=== PATIENT | female | born 1935 | race Caucasian/White ===

== ENCOUNTER 2017-09-14 16:00 | Emergency (ER) | payer MEDICARE ==
[2017-09-14 16:12] VITALS: RESP 18
[2017-09-14] MEDS ORDERED: RX INFO: IV CONTRAST WAS GIVEN 1 EACH MISC MISCELLANE PRN (16:52)
[2017-09-14] MEDS ORDERED: MORPHINE SULFATE 4 MG/ML SYRINGE IV STA (16:52)
[2017-09-14] MEDS ORDERED: ONDANSETRON 4 MG/2 ML VIAL IVP STA (16:52)
[2017-09-14] MEDS ORDERED: SODIUM CHLORIDE 0.9% 1,000 ML IV STA (16:52)
--- NOTE | 2017-09-14 17:14 | ED ---
General Adult HPI - General Chief complaint: Back Pain/Injury Stated complaint: back pain/constipation Time Seen by Provider: 09/14/17 16:19 Source: patient, family, RN notes reviewed, old records reviewed Mode of arrival: wheelchair Limitations: no limitations - History of Present Illness Initial comments: This is an 81-year-old female ER for evaluation of back pain. Back pain flank pain right flank pain and back pain. Patient has no history of similar symptoms. The pain woke patient up from sleep last night. Patient has history of high blood pressure. No trauma. Patient denies nausea vomiting. No shortness of breath. No modifying factors for pain. Patient's diarrhea and recently put on medication to help with slowing down diarrhea. - Related Data Home Medications Medication Instructions Recorded Confirmed Losartan [Cozaar] 50 mg PO DAILY 12/14/13 09/14/17 Naproxen Sodium [Aleve] 1 tab PO Q6HR PRN 12/14/13 09/14/17 Oxybutynin Chloride [Ditropan XL] 5 mg PO DAILY 12/14/13 09/14/17 Aspirin 325 mg PO DAILY 12/22/13 09/14/17 Triamterene-Hctz 37.5-25Mg 1 tab PO DAILY 08/29/14 09/14/17 [Maxzide 37.5-25] L.acidoph,Paracasei, B.lactis 1 cap PO DAILY 09/14/17 09/14/17 [Probiotic] Levothyroxine Sodium [Synthroid] 50 mcg PO DAILY 09/14/17 09/14/17 OXcarbazepine [Trileptal] 300 mg PO TID 09/14/17 09/14/17 Ubidecarenone [Co Q-10] 100 mg PO DAILY 09/14/17 09/14/17 amLODIPine [Norvasc] 5 mg PO DAILY 09/14/17 09/14/17 hydrOXYzine HCL [Atarax] 25 mg PO HS 09/14/17 09/14/17 Allergies Allergy/AdvReac Type Severity Reaction Status Date / Time No Known Allergies Allergy Verified 09/14/17 16:51 Review of Systems ROS Statement: Those systems with pertinent positive or pertinent negative responses have been documented in the HPI. ROS Other: All systems not noted in ROS Statement are negative. Past Medical History Past Medical History: Hyperlipidemia, Hypertension Additional Past Medical History / Comment(s): Vericose veins, IBS, Arthritis, chronic back pain,PERSISTENT COUGH, MULTIPLE RECENT FALLS. History of Any Multi-Drug Resistant Organisms: None Reported Past Surgical History: Back Surgery, Bladder Surgery, Hysterectomy, Orthopedic Surgery, Tonsillectomy Additional Past Surgical History / Comment(s): TOMMY Hip replacement, colonoscopy , Brain aneurysm, Cataract Bilateral, PAIN CLINIC Past Anesthesia/Blood Transfusion Reactions: No Reported Reaction Past Psychological History: Anxiety, Depression Smoking Status: Former smoker Past Alcohol Use History: None Reported Past Drug Use History: None Reported General Exam Limitations: no limitations General appearance: alert, in no apparent distress Head exam: Present: atraumatic, normocephalic, normal inspection Eye exam: Present: normal appearance, PERRL, EOMI. Absent: scleral icterus, conjunctival injection, periorbital swelling ENT exam: Present: normal exam, mucous membranes moist Neck exam: Present: normal inspection. Absent: tenderness, meningismus, lymphadenopathy Respiratory exam: Present: normal lung sounds bilaterally. Absent: respiratory distress, wheezes, rales, rhonchi, stridor Cardiovascular Exam: Present: regular rate, normal rhythm, normal heart sounds. Absent: systolic murmur, diastolic murmur, rubs, gallop, clicks GI/Abdominal exam: Present: soft, normal bowel sounds. Absent: distended, tenderness, guarding, rebound, rigid Extremities exam: Present: normal inspection, full ROM, normal capillary refill. Absent: tenderness, pedal edema, joint swelling, calf tenderness Back exam: Present: normal inspection Neurological exam: Present: alert, oriented X3, CN II-XII intact Psychiatric exam: Present: normal affect, normal mood Skin exam: Present: warm, dry, intact, normal color. Absent: rash Course Vital Signs 09/14/17 09/14/17 09/14/17 16:06 17:49 19:36 Temperature 97.2 F L 98.2 F Pulse Rate 70 74 78 Respiratory 18 18 18 Rate Blood Pressure 128/68 137/71 124/80 O2 Sat by Pulse 96 96 98 Oximetry EKG Findings - EKG Comments: EKG Findings:: EKG shows sinus rhythm rate of 64, pO2 50, QRS 140, QTc 455 Medical Decision Making - Medical Decision Making [id number] female with nonspecific back pain. No cause found. CT is negative. Patient can be discharged home - Lab Data Result diagrams: 09/14/17 17:15 09/14/17 17:15 Lab Results 09/14/17 09/14/17 09/14/17 Range/Units 17:15 17:15 17:15 WBC 5.8 (3.8-10.6) k/uL RBC 3.87 (3.80-5.40) m/uL Hgb 11.6 (11.4-16.0) gm/dL Hct 35.1 (34.0-46.0) % MCV 90.9 (80.0-100.0) fL MCH 29.9 (25.0-35.0) pg MCHC 32.9 (31.0-37.0) g/dL RDW 13.9 (11.5-15.5) % Plt Count 259 (150-450) k/uL Neutrophils % 57 % Lymphocytes % 24 % Monocytes % 7 % Eosinophils % 9 % Basophils % 1 % Neutrophils # 3.3 (1.3-7.7) k/uL Lymphocytes # 1.4 (1.0-4.8) k/uL Monocytes # 0.4 (0-1.0) k/uL Eosinophils # 0.5 (0-0.7) k/uL Basophils # 0.1 (0-0.2) k/uL PT (9.0-12.0) sec INR (<1.2) APTT (22.0-30.0) sec Sodium 135 L (137-145) mmol/L Potassium 4.1 (3.5-5.1) mmol/L Chloride 97 L (98-107) mmol/L Carbon Dioxide 28 (22-30) mmol/L Anion Gap 10 mmol/L BUN 36 H (7-17) mg/dL Creatinine 1.16 H (0.52-1.04) mg/dL Est GFR (MDRD) Af Amer 54 (>60 ml/min/1.73 sqM) Est GFR (MDRD) Non-Af 45 (>60 ml/min/1.73 sqM) Glucose 92 (74-99) mg/dL Calcium 10.1 (8.4-10.2) mg/dL Magnesium 1.9 (1.6-2.3) mg/dL Total Bilirubin 0.2 (0.2-1.3) mg/dL AST 28 (14-36) U/L ALT 31 (9-52) U/L Alkaline Phosphatase 89 (38-126) U/L Total Creatine Kinase 37 (30-135) U/L CK-MB (CK-2) 0.4 (0.0-2.4) ng/mL CK-MB (CK-2) Rel Index 1.1 Troponin I <0.012 (0.000-0.034) ng/mL NT-Pro-B Natriuret Pep pg/mL Total Protein 6.1 L (6.3-8.2) g/dL Albumin 3.5 (3.5-5.0) g/dL Lipase 217 (23-300) U/L 09/14/17 09/14/17 Range/Units 17:15 17:15 WBC (3.8-10.6) k/uL RBC (3.80-5.40) m/uL Hgb (11.4-16.0) gm/dL Hct (34.0-46.0) % MCV (80.0-100.0) fL MCH (25.0-35.0) pg MCHC (31.0-37.0) g/dL RDW (11.5-15.5) % Plt Count (150-450) k/uL Neutrophils % % Lymphocytes % % Monocytes % % Eosinophils % % Basophils % % Neutrophils # (1.3-7.7) k/uL Lymphocytes # (1.0-4.8) k/uL Monocytes # (0-1.0) k/uL Eosinophils # (0-0.7) k/uL Basophils # (0-0.2) k/uL PT 9.5 (9.0-12.0) sec INR 0.9 (<1.2) APTT 23.0 (22.0-30.0) sec Sodium (137-145) mmol/L Potassium (3.5-5.1) mmol/L Chloride (98-107) mmol/L Carbon Dioxide (22-30) mmol/L Anion Gap mmol/L BUN (7-17) mg/dL Creatinine (0.52-1.04) mg/dL Est GFR (MDRD) Af Amer (>60 ml/min/1.73 sqM) Est GFR (MDRD) Non-Af (>60 ml/min/1.73 sqM) Glucose (74-99) mg/dL Calcium (8.4-10.2) mg/dL Magnesium (1.6-2.3) mg/dL Total Bilirubin (0.2-1.3) mg/dL AST (14-36) U/L ALT (9-52) U/L Alkaline Phosphatase (38-126) U/L Total Creatine Kinase (30-135) U/L CK-MB (CK-2) (0.0-2.4) ng/mL CK-MB (CK-2) Rel Index Troponin I (0.000-0.034) ng/mL NT-Pro-B Natriuret Pep 297 pg/mL Total Protein (6.3-8.2) g/dL Albumin (3.5-5.0) g/dL Lipase (23-300) U/L - Radiology Data Radiology results: report reviewed (CTA chest CT abdomen and pelvis negative for acute disease), image reviewed Disposition Clinical Impression: Mid back pain Disposition: HOME SELF-CARE Condition: Good Instructions: Acute Low Back Pain (ED) Referrals: Lewis Kinney MD [Primary Care Provider] - 1-2 days
[2017-09-14 17:26] LABS: Basophils # (A) 0.1 k/uL (0-0.2); Basophils % (A) 1 %; Eosinophils # (A) 0.5 k/uL (0-0.7); Eosinophils % (A) 9 %; HCT 35.1 % (34.0-46.0); HGB 11.6 gm/dL (11.4-16.0); Lymphocytes # (A) 1.4 k/uL (1.0-4.8); Lymphocytes % (A) 24 %; MCH 29.9 pg (25.0-35.0); MCHC 32.9 g/dL (31.0-37.0); MCV 90.9 fL (80.0-100.0); Mean Platelet Volume 6.3; Monocytes # (A) 0.4 k/uL (0-1.0); Monocytes % (A) 7 %; Neutrophils # (A) 3.3 k/uL (1.3-7.7); Neutrophils % (A) 57 %; Platelet Count 259 k/uL (150-450); RBC 3.87 m/uL (3.80-5.40); RDW 13.9 % (11.5-15.5); WBC 5.8 k/uL (3.8-10.6)
[2017-09-14 17:34] LABS: INR 0.9 (<1.2); Prothrombin Time 9.5 sec (9.0-12.0)
[2017-09-14 17:40] LABS: Albumin 3.5 g/dL (3.5-5.0); Calcium 10.1 mg/dL (8.4-10.2); Magnesium 1.9 mg/dL (1.6-2.3); Potassium 4.1 mmol/L (3.5-5.1); Total Bilirubin 0.2 mg/dL (0.2-1.3); Total Protein 6.1 g/dL (6.3-8.2)
[2017-09-14 17:47] LABS: Creatine Kinase 37 U/L (30-135)
[2017-09-14 17:59] LABS: Creatine Kinase MB 0.4 ng/mL (0.0-2.4); Troponin I <0.012 ng/mL (0.000-0.034)
--- NOTE | 2017-09-14 18:40 | CT ---
EXAMINATION TYPE: CT angio chest DATE OF EXAM: 09/14/2017 COMPARISON: NONE HISTORY: Constipation x 4 days, right lower back pain. CT DLP: 193.4 mGycm. Automated Exposure Control for Dose Reduction was Utilized. CONTRAST: CTA scan of the thorax is performed with IV Contrast, patient injected with 80 mL of Visipaque 320, p ulmonary embolism protocol. MIP Images are created on CT scanner and reviewed. FINDINGS: LUNGS: Multifocal groundglass opacities scattered throughout the lungs in a geographic mosaic pattern predominating within the right upper lobe but are seen globally. Mild subpleural reticulation and in terlobar septal thickening are also most pronounced at the right lung apex. Bibasilar subsegmental at electasis and few paraseptal blebs are also noted. Pleural parenchymal scarring is seen on the right. No focal consolidation, pleural effusion or pneumothorax. The tracheobronchial tree is patent. MEDIASTINUM: There is enlargement of the right and left main pulmonary arteries suggestive of underly ing pulmonary arterial hypertension. There is satisfactory enhancement of the pulmonary artery and it s branches, there is no CT evidence for pulmonary embolism. There are no greater than 1 cm hilar or mediastinal lymph nodes. There is a small pericardial effusion. Cardiac size is prominent. Ascending thoracic aorta is within normal limits of size measuring 3.1 cm. OTHER: Small hiatal hernia. Visualized portions of the upper abdomen are discussed in the CT abdomen pelvic dictation of the same date. Multilevel moderate degenerative changes of the thoracic spine are present. IMPRESSION: 1. No evidence of pulmonary embolism. Right and left main pulmonary artery enlargement suggests under lying pulmonary arterial hypertension. 2. Scattered geographic groundglass mosaic attenuation pattern is nonspecific but can be seen in flui d overload or pneumonitis. 3. Small hiatal hernia.
--- NOTE | 2017-09-14 18:48 | CT ---
EXAMINATION TYPE: CT abdomen pelvis w con DATE OF EXAM: 09/14/2017 HISTORY: Constipation x 4 days, right lower back pain. CT DLP: 1353.6mGycm Automated Exposure Control for Dose Reduction was Utilized. CONTRAST: CT scan of the abdomen and pelvis is performed with IV Contrast, patient injected with 80 mL of Visip aque 320. COMPARISON: CT thorax of the same date FINDINGS: LUNG BASES: Described on the CT thorax of the same date LIVER/GB: Mild periportal edema likely relates to patient's fluid hydration status of the inferior ve na cava is engorged. Otherwise the liver is grossly unremarkable. Numerous gallstones layer within th e gallbladder fundus. PANCREAS: No significant abnormality is seen. SPLEEN: No significant abnormality is seen of the splenic parenchyma. 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 ADRENALS: No significant abnormality is seen. KIDNEYS: Bilateral extrarenal pelvises sees are noted, right greater than left. Kidneys are symmetric in enhancement. BOWEL: Gastric antrum is prominent with mucosal hyperemia. There is circumferential bowel wall thicke natalie of the descending duodenum on series 6 image 36. Slight narrowing is seen between the inferior v aurora cava and the superior mesenteric vein of the duodenum. Sigmoid colon is partially obscured by ext ensive spray artifact from bilateral femoral arthroplasties. Numerous sigmoid diverticula and colonic diverticula are seen without pericolonic fat stranding. No bowel dilatation. Nonformed stool is note d throughout the ascending colon without pericolonic fat stranding or bowel wall thickening. UTERUS/ADNEXA: Obscured by spray artifact due to bilateral hip prostheses. LYMPH NODES: No gross evidence of greater than 1cm abdominal or pelvic lymph nodes are appreciated. OSSEOUS STRUCTURES: Multilevel degenerative and postsurgical scar change is seen of the lumbar spine and hip joints. OTHER: Moderate to severe calcific atheromatous changes are seen of the abdominal aorta and its branc hes. IMPRESSION: 1. Cholelithiasis without other CT evidence of acute cholecystitis. Correlate with serum laboratory v alues. 2. Mucosal hyperemia of the gastric antrum may relate to gastritis. Circumferential bowel wall thicke natalie of the descending duodenum is also nonspecific but could relate to mild duodenitis. 3. Nonformed stool within the ascending colon may relate to malabsorption/diarrhea. Colonic diverticu losis is noted without diverticulitis. 4. Pelvis is limited due to spray artifact by the bilateral hip prostheses.
[2017-09-14 19:37] VITALS: BP 124/80; PULSE 78; TEMP 98.2
== END 2017-09-14 19:37 | disposition home or self-care (01) ==
LOC: EC 16:00
DX: M54.6 Pain in thoracic spine (principal); R10.9 Unspecified abdominal pain; I10 Essential (primary) hypertension; F41.9 Anxiety disorder, unspecified; F32.9 Major depressive disorder, single episode, unspecified; M19.90 Unspecified osteoarthritis, unspecified site; K58.9 Irritable bowel syndrome, unspecified; Z96.643 Presence of artificial hip joint, bilateral; Z87.891 Personal history of nicotine dependence; Z79.82 Long term (current) use of aspirin; Z79.899 Other long term (current) drug therapy
CPT/HCPCS: 36415; 93005; 83880; 80053; 82550; 82553; 83690; 83735; 84484; 85025; 85610; 85730; 71275; 74177; 99284; 96374; 96375; 96361; J2270; Q9967; J2405

== ENCOUNTER → 2018-11-12 | Outpatient (CLI) | payer MEDICARE ==
--- NOTE | 2018-11-12 11:36 | FL ---
EXAMINATION TYPE: FL barium swallow w video DATE OF EXAM: 11/12/2018 MODIFIED SWALLOW / DEGLUTITION STUDY CLINICAL HISTORY: Dysphagia. TECHNIQUE: Deglutition study is performed utilizing thin liquid barium, honey and nectar thick liqui d barium, barium thick applesauce, and barium coated cracker. 2 minutes and 30 seconds of fluoroscopy time was utilized. 0 images were saved as the examination was video recorded COMPARISON: None. FINDINGS: The oral and pharyngeal phases show satisfactory initiation and propagation with all modali ties tested. Normal mastication is seen with solid modalities tested. There is no evidence of penet ration or aspiration with any modality tested. Mild pharyngeal wall, vallecular, and piriform sinus r esiduals were seen with the thin and honey thick consistencies. 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 IMPRESSION: 1. Severe intraesophageal reflux with retrograde filling of the piriform sinuses after contrast had b een expelled initially. 2. No evidence of laryngeal penetration or aspiration. 3. Incidentally noted cricopharyngeal bar. Please refer to speech therapist notes for further details if necessary.
== END | disposition home or self-care (01) ==
LOC: RADFLMAIN 10:47
PROVIDERS: ATTEND Family Medicine
DX: K21.9 Gastro-esophageal reflux disease without esophagitis (principal)
CPT/HCPCS: 74230

== ENCOUNTER → 2018-12-11 | Outpatient (CLI) | payer MEDICARE ==
[2018-12-11 11:07] VITALS: BMI 24.7
== END ==
LOC: DBWHC3 08:58
PROVIDERS: ATTEND Family Medicine
DX: K21.9 Gastro-esophageal reflux disease without esophagitis (principal)
CPT/HCPCS: 97802

== ENCOUNTER → 2019-03-25 | Outpatient (CLI) | payer MEDICARE ==
--- NOTE | 2019-03-25 09:50 | US ---
EXAMINATION TYPE: US abdomen complete DATE OF EXAM: 03/25/2019 COMPARISON: CT dated 09/14/2017 CLINICAL HISTORY: R74.8 Elevated liver enzymes. NPO. Hx gall stones. Abnormal labs. EXAM MEASUREMENTS: Liver Length: 13.2 cm Gallbladder Wall: 0.1 cm CHD: 0.3 cm Spleen: 6.9 cm Right Kidney: 7.8 x 2.9 x 3.4 cm Left Kidney: 8.1 x 3.2 x 3.4 cm Pancreas: Obscured by bowel gas Liver: wnl as visualized Gallbladder: Multiple mobile stones visualized Evidence for sonographic Alfredo's sign: neg CBD: Obscured by overlying bowel gas CHD: wnl Spleen: wnl Right Kidney: Appears small in size. Medial anechoic lesion seen at hilum - 1.1 x 1.2 cm Left Kidney: Appears small in size. Medial anechoic lesion seen at hilum - 1.5 x 1.2 cm Upper IVC: wnl Abd Aorta: No AAA visualized The liver is homogenous. The intrahepatic portion of the IVC and proximal abdominal aorta are within normal limits. Common bile duct is unremarkable. The visualized portions of the pancreas are homoge nous. The spleen is unremarkable. Kidneys are symmetric and free of hydronephrosis. IMPRESSION: 1. Cholelithiasis without sonographic evidence of acute cholecystitis. 2. Despite transaminitis the liver parenchyma appears homogeneous with appropriate visualization of t he portal triads. Early hepatocellular disease and hepatic steatosis may not be demonstrated sonograp hically. 3. Probable bilateral renal sinus cysts.
== END | disposition home or self-care (01) ==
LOC: RADUSWWP 08:01
PROVIDERS: ATTEND Family Medicine
DX: K80.20 Calculus of gallbladder without cholecystitis without obstruction (principal); R74.0 Nonspecific elevation of levels of transaminase and lactic acid dehydrogenase [LDH]
CPT/HCPCS: 76700

== ENCOUNTER 2019-08-07 21:51 | Inpatient (IN) | payer MEDICARE ==
--- NOTE | 2019-08-07 22:16 | ED ---
General Adult HPI - General Chief complaint: Shortness of Breath Stated complaint: GI Bleed Time Seen by Provider: 08/07/19 21:53 Source: patient, EMS Mode of arrival: EMS Limitations: no limitations - History of Present Illness Initial comments: Dictation was produced using [employer] dictation software. please excuse any grammatical, word or spelling errors. Chief Complaint: 83-year-old female with past medical history of atrial fibrill ation, dyslipidemia and hypertension presents with bright red blood per rectum and generalized weakness. History of Present Illness: 83-year-old female presents with both sons. Patient was recently admitted to the hospital where she was treated for new onset atrial fibrillation, tracheobronchitis. She is brought in via EMS. Son called EMS. He noted that patient seemed more tired than usual. Son noted that patient fell sleep on the toilet. Patient requires assistance from both her sons patient lives with her eldest son. Son noted also that he went to wipe her after having a bowel movement and there was some bright red blood seen on the toilet paper. Patient states she feels okay. The ROS documented in this emergency department record has been reviewed and confirmed by me. Those systems with pertinent positive or negative responses have been documented in the HPI. All other systems are other negative and/or noncontributory. PHYSICAL EXAM: General Impression: Alert and oriented x3, not in acute distress HEENT: Normocephalic atraumatic, extra-ocular movements intact, pupils equal and reactive to light bilaterally, mucous membranes moist. Cardiovascular: Heart regular rate and rhythm, S1&S2 audible, no murmurs, rubs or gallops Chest: Lungs clear to auscultation bilaterally, no rhonchi, no wheeze, no rales Abdomen: Bowel sounds present, abdomen soft, non-tender, non-distended, no organomegaly Musculoskeletal: Pulses present and equal in all extremities, no peripheral edema Motor: no focal deficits noted Neurological: CN II-XII grossly intact, no focal motor or sensory deficits noted Skin: Intact with no visualized rashes Psych: Normal affect and mood Rectal exam: Skin breakdown in the perirectal area, no anal fissures, rectal exam shows no gross blood, no palpable rectal mass ED course: 83 yo Female presents today with generalized weakness and bright red blood per rectum. No signs upon arrival shows heart rate of 62, respiratory signs within acceptable limits. Patient's well-appearing at bedside. Chart review was performed. Patient was recently admitted where she was treated for new onset atrial fibrillation, tracheal bronchitis. Laboratory evaluation obtained. Mild leukocytosis of 11.2 which appears to be improved compared to recent admission. Coag panel unremarkable. Metabolic panel shows sodium 129. Patient has elevated renal markers are cranial 2.61. Cardiac enzymes negative. Prematurity peptide 1200. Clinical presentation concerning for acute kidney injury. Patient given hydration. She'll be admitted for acute kidney injury. She will have nephrology consulted. Patient given gentle hydration given that patient has history of heart failure. EKG interpretation: Ventricular rate 58, left bundle branch block, sinus bradycardia,. Interval to 54, QS 146, QTC 461. No IN prolongation, no QTC prolongation, no ST or T-wave changes noted. EKG compared to 07/27/2019 showing no changes. Overall, this EKG is unremarkable - Related Data Home Medications Medication Instructions Recorded Confirmed Losartan [Cozaar] 50 mg PO DAILY 12/14/13 07/27/19 Naproxen Sodium [Aleve] 220 tab PO HS 12/14/13 07/27/19 Oxybutynin Chloride [Ditropan XL] 5 mg PO HS 12/14/13 07/27/19 Triamterene-Hctz 37.5-25Mg 1 tab PO DAILY 08/29/14 07/27/19 [Maxzide 37.5-25] Levothyroxine Sodium [Synthroid] 50 mcg PO AC-[id number] 09/14/17 07/27/19 OXcarbazepine [Trileptal] 300 mg PO TID 09/14/17 07/27/19 Ubidecarenone [Co Q-10] 100 mg PO HS 09/14/17 07/27/19 amLODIPine [Norvasc] 5 mg PO DAILY 09/14/17 07/27/19 Cholecalciferol [Vitamin D3 (25 1,000 unit PO DAILY@119907/27/19 07/27/19 Mcg = 1000 Iu)] Famotidine [Pepcid] 20 mg PO BID 07/27/19 07/27/19 Omeprazole 40 mg PO HS 07/27/19 07/27/19 Vit C/E/Zn/Coppr/Lutein/Zeaxan 1 cap PO DAILY@1200 07/27/19 07/27/19 [Preservision Areds 2 Softgel] Previous Rx's Medication Instructions Recorded Amiodarone [Cordarone] 200 mg PO BID #60 tab 07/30/19 Apixaban [Eliquis] 5 mg PO BID #60 tab 07/30/19 Cefdinir [Omnicef] 300 mg PO Q12HR #6 cap 07/30/19 Metoprolol Tartrate [Lopressor] 12.5 mg PO BID #60 dose 07/30/19 predniSONE 10 mg PO DAILY #30 tab 07/30/19 Allergies Allergy/AdvReac Type Severity Reaction Status Date / Time No Known Allergies Allergy Verified 08/07/19 21:55 Review of Systems ROS Statement: Those systems with pertinent positive or pertinent negative responses have been documented in the HPI. ROS Other: All systems not noted in ROS Statement are negative. Past Medical History Past Medical History: Atrial Fibrillation, Hyperlipidemia, Hypertension Additional Past Medical History / Comment(s): RECENT FALLS, hypothyroidism, hypertension, chronic back pain, varicose veins, IBS, history of falls, Layne's esophagus History of Any Multi-Drug Resistant Organisms: None Reported Past Surgical History: Back Surgery, Bladder Surgery, Hysterectomy, Orthopedic Surgery, Tonsillectomy Additional Past Surgical History / Comment(s): TOMMY Hip replacement, colonoscopy, Brain aneurysm, Cataract Bilateral, PAIN CLINIC Past Anesthesia/Blood Transfusion Reactions: No Reported Reaction Past Psychological History: No Psychological Hx Reported, Anxiety, Depression Smoking Status: Former smoker Past Alcohol Use History: None Reported Past Drug Use History: None Reported - Past Family History Brother(s) Additional Family Medical History / Comment(s): pt. had a twin brother who was born with a bad heart valve General Exam Limitations: no limitations Course Vital Signs 08/07/19 08/07/19 21:55 22:29 Temperature 98 F Pulse Rate 62 Respiratory 18 16 Rate Blood Pressure 164/83 O2 Sat by Pulse 97 Oximetry Medical Decision Making - Lab Data Result diagrams: 08/07/19 22:15 08/07/19 22:15 Lab Results 08/07/19 08/07/19 08/07/19 Range/Units 22:15 22:15 22:15 WBC 11.2 H (3.8-10.6) k/uL RBC 4.33 (3.80-5.40) m/uL Hgb 12.3 (11.4-16.0) gm/dL Hct 37.9 (34.0-46.0) % MCV 87.5 (80.0-100.0) fL MCH 28.5 (25.0-35.0) pg MCHC 32.6 (31.0-37.0) g/dL RDW 14.8 (11.5-15.5) % Plt Count 408 (150-450) k/uL Neutrophils % 88 % Lymphocytes % 5 % Monocytes % 4 % Eosinophils % 1 % Basophils % 1 % Neutrophils # 9.8 H (1.3-7.7) k/uL Lymphocytes # 0.6 L (1.0-4.8) k/uL Monocytes # 0.4 (0-1.0) k/uL Eosinophils # 0.1 (0-0.7) k/uL Basophils # 0.2 (0-0.2) k/uL PT 10.0 (9.0-12.0) sec INR 1.0 (<1.2) APTT 22.2 (22.0-30.0) sec Sodium 129 L (137-145) mmol/L Potassium 4.2 (3.5-5.1) mmol/L Chloride 98 (98-107) mmol/L Carbon Dioxide 21 L (22-30) mmol/L Anion Gap 10 mmol/L BUN 53 H (7-17) mg/dL Creatinine 2.61 H (0.52-1.04) mg/dL Est GFR (CKD-EPI)AfAm 19 (>60 ml/min/1.73 sqM) Est GFR (CKD-EPI)NonAf 16 (>60 ml/min/1.73 sqM) Glucose 90 (74-99) mg/dL Calcium 9.5 (8.4-10.2) mg/dL Troponin I (0.000-0.034) ng/mL NT-Pro-B Natriuret Pep pg/mL Stool Occult Blood (Negative) 08/07/19 08/07/19 08/07/19 Range/Units 22:15 22:15 22:25 WBC (3.8-10.6) k/uL RBC (3.80-5.40) m/uL Hgb (11.4-16.0) gm/dL Hct (34.0-46.0) % MCV (80.0-100.0) fL MCH (25.0-35.0) pg MCHC (31.0-37.0) g/dL RDW (11.5-15.5) % Plt Count (150-450) k/uL Neutrophils % % Lymphocytes % % Monocytes % % Eosinophils % % Basophils % % Neutrophils # (1.3-7.7) k/uL Lymphocytes # (1.0-4.8) k/uL Monocytes # (0-1.0) k/uL Eosinophils # (0-0.7) k/uL Basophils # (0-0.2) k/uL PT (9.0-12.0) sec INR (<1.2) APTT (22.0-30.0) sec Sodium (137-145) mmol/L Potassium (3.5-5.1) mmol/L Chloride (98-107) mmol/L Carbon Dioxide (22-30) mmol/L Anion Gap mmol/L BUN (7-17) mg/dL Creatinine (0.52-1.04) mg/dL Est GFR (CKD-EPI)AfAm (>60 ml/min/1.73 sqM) Est GFR (CKD-EPI)NonAf (>60 ml/min/1.73 sqM) Glucose (74-99) mg/dL Calcium (8.4-10.2) mg/dL Troponin I <0.012 (0.000-0.034) ng/mL NT-Pro-B Natriuret Pep 1200 pg/mL Stool Occult Blood Negative (Negative) Disposition Clinical Impression: LOU (acute kidney injury) Disposition: ADMITTED IP TO THIS HOSP Condition: Fair Referrals: Lewis Kinney MD [Primary Care Provider] - 1-2 days Decision Time: 23:50
[2019-08-07 22:28] LABS: Basophils # (A) 0.2 k/uL (0-0.2); Basophils % (A) 1 %; Eosinophils # (A) 0.1 k/uL (0-0.7); Eosinophils % (A) 1 %; HCT 37.9 % (34.0-46.0); HGB 12.3 gm/dL (11.4-16.0); Lymphocytes # (A) 0.6 k/uL (1.0-4.8); Lymphocytes % (A) 5 %; MCH 28.5 pg (25.0-35.0); MCHC 32.6 g/dL (31.0-37.0); MCV 87.5 fL (80.0-100.0); Mean Platelet Volume 6.3; Monocytes # (A) 0.4 k/uL (0-1.0); Monocytes % (A) 4 %; Neutrophils # (A) 9.8 k/uL (1.3-7.7); Neutrophils % (A) 88 %; Platelet Count 408 k/uL (150-450); RBC 4.33 m/uL (3.80-5.40); RDW 14.8 % (11.5-15.5); WBC 11.2 k/uL (3.8-10.6)
[2019-08-07 22:38] LABS: Calcium 9.5 mg/dL (8.4-10.2); Potassium 4.2 mmol/L (3.5-5.1)
[2019-08-07 22:42] LABS: Partial Thromboplastin Time 22.2 sec (22.0-30.0)
[2019-08-07] MEDS ORDERED: SODIUM CHLORIDE 0.9% 1,000 ML IV STA (23:42)
[2019-08-07] MEDS ORDERED: ACETAMINOPHEN TAB 325 MG TAB PO PRN (23:45)
[2019-08-07] MEDS ORDERED: SODIUM CHLORIDE 0.9% 500 ML IV STA (23:45)
[2019-08-07] MEDS ORDERED: NALOXONE 0.4 MG/ML 1 ML VIAL IV PRN (23:45)
[2019-08-08] MEDS: SODIUM CHLORIDE 0.9% 1,000 ML IV SCH ×2 (00:12→17:15)
[2019-08-08] MEDS: METOPROLOL TARTRATE 12.5 MG TAB PO SCH ×2 (07:57→20:50)
[2019-08-08] MEDS: AMIODARONE 200 MG TAB PO SCH ×2 (07:57→20:51)
[2019-08-08] MEDS: LEVOTHYROXINE 50 MCG TAB PO SCH (07:58)
[2019-08-08] MEDS: APIXABAN 5 MG TAB PO SCH ×2 (07:58→20:50)
[2019-08-08] MEDS: amLODIPine 5 MG TAB PO SCH (07:58)
[2019-08-08] MEDS ORDERED: LOSARTAN 50 MG TAB PO SCH (09:00)
[2019-08-08] MEDS ORDERED: FAMOTIDINE 20 MG TAB PO SCH (11:30)
[2019-08-08] MEDS: OXcarbazepine 300 MG TAB PO SCH ×3 (12:31→20:50)
--- NOTE | 2019-08-08 13:04 | P.NPCON ---
History of Present Illness - Reason for Consult Consult date: 08/08/19 acute renal failure - Chief Complaint Acute renal failure rectal bleed - History of Present Illness This is a 83-year-old female seen in consultation because of acute kidney injury. Patient was on Naprosyn since last discharge He was admitted after a rectal bleed and weakness and tiredness. She was recently admitted and diagnosed with upper respiratory infection and with atrial fibrillation and was on anticoagulation with eliquis. No history of nausea vomiting but some history of diarrhea supposedly patient is a poor historian and is unable to give me details. She seems to be forgetful. No history of syncope seizures. Past Medical History Past Medical History: Atrial Fibrillation, Hyperlipidemia, Hypertension Additional Past Medical History / Comment(s): RECENT FALLS, hypothyroidism, hypertension, chronic back pain, varicose veins, IBS, history of falls, Layne's esophagus History of Any Multi-Drug Resistant Organisms: None Reported Past Surgical History: Back Surgery, Bladder Surgery, Hysterectomy, Orthopedic Surgery, Tonsillectomy Additional Past Surgical History / Comment(s): TOMMY Hip replacement, colonoscopy, Brain aneurysm, Cataract Bilateral, PAIN CLINIC Past Anesthesia/Blood Transfusion Reactions: No Reported Reaction Past Psychological History: No Psychological Hx Reported, Anxiety, Depression Additional Psychological History / Comment(s): Short Term Memory Loss Smoking Status: Former smoker Past Alcohol Use History: None Reported Past Drug Use History: None Reported - Past Family History Brother(s) Additional Family Medical History / Comment(s): pt. had a twin brother who was born with a bad heart valve Medications and Allergies Home Medications Medication Instructions Recorded Confirmed Type Losartan [Cozaar] 50 mg PO DAILY 12/14/13 08/08/19 History Naproxen Sodium [Aleve] 220 tab PO HS 12/14/13 08/08/19 History Oxybutynin Chloride [Ditropan XL] 5 mg PO 12/14/13 08/08/19 History Triamterene-Hctz 37.5-25Mg 1 tab PO DAILY 08/29/14 08/08/19 History [Maxzide 37.5-25] Levothyroxine Sodium [Synthroid] 50 mcg PO AC-BRKFST 09/14/17 08/08/19 History OXcarbazepine [Trileptal] 300 mg PO TID 09/14/17 08/08/19 History Ubidecarenone [Co Q-10] 100 mg PO HS 09/14/17 08/08/19 History amLODIPine [Norvasc] 5 mg PO DAILY 09/14/17 08/08/19 History Cholecalciferol [Vitamin D3 (25 1,000 unit PO DAILY@1200 07/27/19 08/08/19 History Mcg = 1000 Iu)] Famotidine [Pepcid] 20 mg PO BID 07/27/19 08/08/19 History Omeprazole 40 mg PO HS 07/27/19 08/08/19 History Vit C/E/Zn/Coppr/Lutein/Zeaxan 1 cap PO DAILY@1200 07/27/19 08/08/19 History [Preservision Areds 2 Softgel] Amiodarone [Cordarone] 200 mg PO BID #60 tab 07/30/19 08/08/19 Rx Apixaban [Eliquis] 5 mg PO BID #60 tab 07/30/19 08/08/19 Rx Metoprolol Tartrate [Lopressor] 12.5 mg PO BID #60 dose 07/30/19 08/08/19 Rx Allergies Allergy/AdvReac Type Severity Reaction Status Date / Time No Known Allergies Allergy Verified 08/08/19 07:23 Physical Exam Vitals: Vital Signs Temp Pulse Pulse Pulse Resp BP BP 08/08/19 11:32 97.4 F L 49 L 17 146/77 08/08/19 04:54 97.4 F L 62 18 170/72 08/08/19 01:17 97.6 F 68 16 128/67 08/08/19 00:48 58 L 18 150/65 08/07/19 22:29 16 08/07/19 21:55 98 F 62 18 164/83 Pulse Ox 08/08/19 11:32 97 08/08/19 04:54 99 08/08/19 01:17 98 08/08/19 00:48 98 08/07/19 22:29 08/07/19 21:55 97 Intake and Output 08/07/19 08/08/19 08/08/19 22:59 06:59 14:59 Other: Voiding Method Bedside Commode Bedside Commode # Voids 1 # Bowel Movements 1 Weight 64.41 kg 64.41 kg On examination she is awake alert oriented comfortable. HEENT exam no JVP neck is supple no facial asymmetry Lungs are clear to auscultation fairly good air entry bilaterally Heart sounds are unremarkable she is in atrial fibrillation Abdomen soft nontender no organomegaly ascites masses no suprapubic tenderness Extremity exam was no edema Neurologically awake alert oriented Extremities are warm to touch Results - Lab Results Most recent lab results Calcium 9.5 mg/dL (8.4-10.2) 08/07/19 22:15 08/07/19 22:15 08/07/19 22:15 Assessment and Plan Plan: Impression 1. Acute kidney injury secondary to nonsteroidals Naprosyn. Creatinine 2.61. Baseline creatinine was 0.6 to 119-2020. 2. Hyponatremia secondary to acute kidney injury. Sodium 129. 3. Mild degree of non-gap acidosis with bicarb 21 and gap 10. 4. History of rectal bleed with hemoglobin 12.3 Recommendation 1. Gentle hydration with IV fluids. Currently normal mL is adequate. 2. Avoid any nephrotoxic medication including nonsteroidals. 3. Check postvoid residual if creatinine does not come down 4. Check urinalysis 5. Follow-up labs
--- NOTE | 2019-08-08 18:06 | P.HPIM ---
History of Present Illness H&P Date: 08/08/19 Chief Complaint: Weak and tired History of presenting complaint: very pleasant 83-year-old patient of Dr. Lewis Kinney. Chronic stable medical conditions include hypertension, hyperlipidemia, hypothyroid, chronic low back pain, irritable bowel syndrome, , anxiety depression, Alzheimer's dementia. Recently the hospital with paroxysmal atrial fibrillation and vital tracheo bronchitis. Patient lives with her elder son. Patient presents with feeling weak tired rundown lethargic. No fever no chills. No cough no urinary symptoms. Patient's out of it acute renal failure. Started on IV fluids. Patient's granddaughter bedside.. Review of systems: GEN.: Weak tired rundown EYES: None HEENT: None NECK: None RESPIRATORY: None CARDIOVASCULAR: None GASTROINTESTINAL: None GENITOURINARY: None MUSCULOSKELETAL: Joint pains LYMPHATICS: None HEMATOLOGICAL: None PSYCHIATRY: Forgetful NEUROLOGICAL: None Social history: Does smoke in the past. Lives with her elder son. Does use a wheelchair and a walker. Family history: Reviewed, noncontributory to presentation Physical examination: VITAL SIGNS: 98, 62, 18, 164/83, 97% on 4 L GENERAL: BMI 26, laying in bed, tired appearing EYES: Pupils equal. Conjunctiva normal. HEENT: External appearance of nose and ears normal, oral cavity grossly normal. NECK: JVD not raised; masses not palpable. HEART: First and second heart sounds are normal; no edema. LUNGS: Respiratory rate normal, decreased breath sounds. ABDOMEN: Soft, nontender, liver spleen not palpable, no masses palpable. PSYCH: Answering simple questions. NEUROLOGICAL: Cranial nerves grossly intact; no facial asymmetry, power and sensation grossly intact. 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 Patient gently be hydrated. At 80 mL an hour. Other medications are to continue. Care was discussed with the patient and granddaughter with the bedside. Repeat labs in the morning. Questions answered. Past Medical History Past Medical History: Atrial Fibrillation, Hyperlipidemia, Hypertension Additional Past Medical History / Comment(s): RECENT FALLS, hypothyroidism, hypertension, chronic back pain, varicose veins, IBS, history of falls, Layne's esophagus History of Any Multi-Drug Resistant Organisms: None Reported Past Surgical History: Back Surgery, Bladder Surgery, Hysterectomy, Orthopedic Surgery, Tonsillectomy Additional Past Surgical History / Comment(s): TOMMY Hip replacement, colonoscopy, Brain aneurysm, Cataract Bilateral, PAIN CLINIC Past Anesthesia/Blood Transfusion Reactions: No Reported Reaction Past Psychological History: No Psychological Hx Reported, Anxiety, Depression Additional Psychological History / Comment(s): Short Term Memory Loss Smoking Status: Former smoker Past Alcohol Use History: None Reported Past Drug Use History: None Reported - Past Family History Brother(s) Additional Family Medical History / Comment(s): pt. had a twin brother who was born with a bad heart valve Medications and Allergies Home Medications Medication Instructions Recorded Confirmed Type Losartan [Cozaar] 50 mg PO DAILY 12/14/13 08/08/19 History Naproxen Sodium [Aleve] 220 tab PO HS 12/14/13 08/08/19 History Oxybutynin Chloride [Ditropan XL] 5 mg PO HS 12/14/13 08/08/19 History Triamterene-Hctz 37.5-25Mg 1 tab PO DAILY 08/29/14 08/08/19 History [Maxzide 37.5-25] Levothyroxine Sodium [Synthroid] 50 mcg PO AC-BRKFST 09/14/17 08/08/19 History OXcarbazepine [Trileptal] 300 mg PO TID 09/14/17 08/08/19 History Ubidecarenone [Co Q-10] 100 mg PO HS 09/14/17 08/08/19 History amLODIPine [Norvasc] 5 mg PO DAILY 09/14/17 08/08/19 History Cholecalciferol [Vitamin D3 (25 1,000 unit PO DAILY@1200 01/07/20 01/19/20 History Mcg = 1000 Iu)] Famotidine [Pepcid] 20 mg PO BID 07/27/19 08/08/19 History Omeprazole 40 mg PO HS 07/27/19 08/08/19 History Vit C/E/Zn/Coppr/Lutein/Zeaxan 1 cap PO DAILY@1200 07/27/19 08/08/19 History [Preservision Areds 2 Softgel] Amiodarone [Cordarone] 200 mg PO BID #60 tab 07/30/19 08/08/19 Rx Apixaban [Eliquis] 5 mg PO BID #60 tab 07/30/19 08/08/19 Rx Metoprolol Tartrate [Lopressor] 12.5 mg PO BID #60 dose 07/30/19 08/08/19 Rx Allergies Allergy/AdvReac Type Severity Reaction Status Date / Time No Known Allergies Allergy Verified 08/08/19 07:23 Physical Exam Vitals: Vital Signs Temp Pulse Pulse Pulse Resp BP BP 08/08/19 04:54 97.4 F L 62 18 170/72 08/08/19 01:17 97.6 F 68 16 128/67 08/08/19 00:48 58 L 18 150/65 08/07/19 22:29 16 08/07/19 21:55 98 F 62 18 164/83 Pulse Ox 08/08/19 04:54 99 08/08/19 01:17 98 08/08/19 00:48 98 08/07/19 22:29 08/07/19 21:55 97 Intake and Output 08/07/19 08/08/19 08/08/19 22:59 06:59 14:59 Other: Voiding Method Bedside Commode Bedside Commode # Voids 1 # Bowel Movements 1 Weight 64.41 kg 64.41 kg Results CBC & Chem 7: 08/07/19 22:15 08/07/19 22:15 Labs: Abnormal Lab Results - Last 24 Hours (Table) 08/07/19 08/07/19 Range/Units 22:15 22:15 WBC 11.2 H (3.8-10.6) k/uL Neutrophils # 9.8 H (1.3-7.7) k/uL Lymphocytes # 0.6 L (1.0-4.8) k/uL Sodium 129 L (137-145) mmol/L Carbon Dioxide 21 L (22-30) mmol/L BUN 53 H (7-17) mg/dL Creatinine 2.61 H (0.52-1.04) mg/dL Thrombosis Risk Factor Assmnt - Choose All That Apply Any of the Below Risk Factors Present?: Yes Each Factor Represents 1 point: Obesity (BMI >25) Other Risk Factors: Yes Each Risk Factor Represents 3 Points: Age 75 years or older Other congenital or acquired thrombophilia - If yes, enter type in comment: No Thrombosis Risk Factor Assessment Total Risk Factor Score: 4 Thrombosis Risk Factor Assessment Level: Moderate Risk
[2019-08-08] MEDS: OXYBUTYNIN XL 5 MG TAB.ER.24 PO SCH (20:50)
[2019-08-08] MEDS: PANTOPRAZOLE 40 MG TABLET PO SCH (20:50)
[2019-08-09] MEDS: SODIUM CHLORIDE 0.9% 1,000 ML IV SCH ×2 (03:01→14:58)
[2019-08-09] MEDS: METOPROLOL TARTRATE 12.5 MG TAB PO SCH ×2 (07:59→21:13)
[2019-08-09] MEDS: OXcarbazepine 300 MG TAB PO SCH ×3 (07:59→21:14)
[2019-08-09] MEDS: amLODIPine 5 MG TAB PO SCH (07:59)
[2019-08-09] MEDS: LEVOTHYROXINE 50 MCG TAB PO SCH (07:59)
[2019-08-09] MEDS: APIXABAN 5 MG TAB PO SCH ×2 (07:59→21:13)
[2019-08-09] MEDS: AMIODARONE 200 MG TAB PO SCH ×2 (07:59→21:13)
[2019-08-09] MEDS: FAMOTIDINE 20 MG TAB PO SCH (07:59)
--- NOTE | 2019-08-09 11:16 | P.PN ---
Subjective Patient is seen in follow-up for acute kidney injury. Feels weak. Good urine output. No vomiting. Does have loose stools. She is receiving IV fluids. No chest pain. Vital signs are stable. General: The patient appeared well nourished and normally developed. HEENT: Head exam is unremarkable. Neck is without jugular venous distension. LUNGS: Breath sounds decreased. HEART: Rate and Rhythm are regular. First and second heart sounds normal. No murmurs, rubs or gallops. ABDOMEN: Abdominal exam reveals normal bowel sounds. Non-tender and non- distended. No evidence of peritonitis. EXTREMITITES: No clubbing, cyanosis, or edema. Objective - Vital Signs Vital signs: Vital Signs Temp 97.5 F L 08/09/19 04:38 Pulse 56 L 08/09/19 04:38 Resp 18 08/09/19 04:38 BP 138/66 08/09/19 04:38 Pulse Ox 96 08/08/19 20:50 Intake & Output 08/08/19 08/09/19 08/09/19 18:59 06:59 18:59 Intake Total 640 960 Balance 640 960 Intake: Intake, IV Titration 640 960 Amount Sodium Chloride 0.9% 1, 640 960 000 ml @ 80 mls/hr IV . [id number] [facility] Rx#:[id number] Other: Voiding Method Bedside Commode Bedside Commode Diaper # Voids 4 1 - Labs CBC & Chem 7: 08/07/19 22:15 08/07/19 22:15 Assessment and Plan Plan: Assessment: 1. Acute kidney injury mostly prerenal secondary to nonsteroidals, diuretics and hemodynamic instability. Creatinine 2.61 on admission. Labs from today pending. 2. Chronic diastolic CHF. 3. Hypovolemic hyponatremia. 4. Benign hypertension. Controlled. Plan: Maintain normal saline at 80 mL an hour. Hold diuretics. Check urinalysis. Check renal ultrasound. Follow-up morning labs.
[2019-08-09 11:24] LABS: Calcium 8.9 mg/dL (8.4-10.2); Magnesium 1.6 mg/dL (1.6-2.3); Potassium 4.3 mmol/L (3.5-5.1)
--- NOTE | 2019-08-09 12:02 | US ---
EXAMINATION TYPE: US kidneys/renal and bladder DATE OF EXAM: 08/09/2019 COMPARISON: US & CT CLINICAL HISTORY: meghan. EXAM MEASUREMENTS: Right Kidney: 8.9 x 3.9 x 4.3 cm Left Kidney: 8.7 x 3.8 x 4.3 cm Technically difficult exam performed portably. Bowel gas partially obscuring renals. Right Kidney: No hydronephrosis or masses seen Left Kidney: No hydronephrosis or masses seen Bladder: wnl Bilateral Jets seen: No There is no evidence for hydronephrosis at this point in time. No nephrolithiasis is seen. No kavya s are identified. The urinary bladder is anechoic. Bilateral ureteral jets are seen. IMPRESSION: No distinct abnormality seen.
[2019-08-09] MEDS: IPRATROPIUM-ALBUTEROL 3 ML NEB INHALATION SCH ×2 (15:06→19:20)
[2019-08-09 20:05] LABS: Appearance,Urine Clear (Clear); Bacteria,Urine Rare /hpf; Bilirubin,Urine Negative (Negative); Blood,Urine Negative (Negative); Color,Urine Light Yellow; Glucose,Urine (UA) Negative (Negative); Ketones,Urine Negative (Negative); Leukocyte Esterase,Urine Small (Negative); Mucus,Urine Rare /hpf; Nitrite,Urine Negative (Negative); PH, Urine 5.5 (5.0-8.0); Protein,Urine Negative (Negative); RBC,Urine 2 /hpf (0-5); Specific Gravity,Urine 1.009 (1.001-1.035); Squamous Epithelial Cell,Urine 1 /hpf (0-4); Urobilinogen,Urine <2.0 mg/dL (<2.0); WBC,Urine 8 /hpf (0-5)
[2019-08-09] MEDS: PANTOPRAZOLE 40 MG TABLET PO SCH (21:14)
[2019-08-09] MEDS: OXYBUTYNIN XL 5 MG TAB.ER.24 PO SCH (21:14)
--- NOTE | 2019-08-09 22:12 | P.PN ---
Progress Note - Text Progress Note Date: 08/09/19 Chief Complaint: Weak and tired Interval history: very pleasant 83-year-old patient of Dr. Lewis Kinney. Chronic stable medical conditions include hypertension, hyperlipidemia, hypothyroid, chronic low back pain, irritable bowel syndrome, , anxiety depression, Alzheimer's dementia. Recently the hospital with paroxysmal atrial fibrillation and vital tracheobronchitis. Patient lives with her elder son. Patient presents with feeling weak tired rundown lethargic. No fever no chills. No cough no urinary symptoms. Patient's out of it acute renal failure. Started on IV fluids. Patient's granddaughter bedside.. Admitted with acute kidney injury. Due to renal offensive medications. Today-laying in bed. Feels a bit better. Granddaughter bedside. Review of systems: Was done for constitutional, cardiovascular, GI, pulmonary. relevant finding as above Active Medications Acetaminophen (Tylenol Tab) 650 mg PO Q6HR PRN PRN Reason: Mild Pain or Fever > 100.5 Albuterol/Ipratropium (Duoneb 0.5 Mg-3 Mg/3 Ml Soln) 3 ml INHALATION RT-QID [facility] Last Admin: 08/09/19 19:20 Dose: 3 ml Documented by: Amiodarone HCl (Cordarone) 200 mg PO BID [facility] Last Admin: 08/09/19 21:13 Dose: 200 mg Documented by: Amlodipine Besylate (Norvasc) 5 mg PO DAILY [facility] Last Admin: 08/09/19 07:59 Dose: 5 mg Documented by: Apixaban (Eliquis) 5 mg PO BID [facility] Last Admin: 08/09/19 21:13 Dose: 5 mg Documented by: Famotidine (Pepcid) 20 mg PO DAILY [facility] Last Admin: 08/09/19 07:59 Dose: 20 mg Documented by: Sodium Chloride (Saline 0.9%) 1,000 mls @ 80 mls/hr IV .[id number] [facility] Last Admin: 08/09/19 14:58 Dose: 80 mls/hr Documented by: Levothyroxine Sodium (Synthroid) 50 mcg PO AC-BRKFST [facility] Last Admin: 08/09/19 07:59 Dose: 50 mcg Documented by: Metoprolol Tartrate (Lopressor) 12.5 mg PO BID [facility] Last Admin: 08/09/19 21:13 Dose: 12.5 mg Documented by: Naloxone HCl (Narcan) 0.2 mg IV Q2M PRN PRN Reason: Opioid Reversal Oxcarbazepine (Trileptal) 300 mg PO TID [facility] Last Admin: 08/09/19 21:14 Dose: 300 mg Documented by: Oxybutynin Chloride (Ditropan Xl) 5 mg PO [facility] Last Admin: 08/09/19 21:14 Dose: 5 mg Documented by: Pantoprazole Sodium (Protonix) 40 mg PO [facility] Last Admin: 08/09/19 21:14 Dose: 40 mg Documented by: Physical examination: VITAL SIGNS: 97.9, 55, 18, 148/76, 96% room air GENERAL: Laying in bed, tired EYES: Pupils equal. Conjunctiva normal. HEENT: External appearance of nose and ears normal, oral cavity grossly normal. NECK: JVD not raised; masses not palpable. HEART: First and second heart sounds are normal; no edema. LUNGS: Respiratory rate normal, decreased breath sounds. ABDOMEN: Soft, nontender, liver spleen not palpable, no masses palpable. PSYCH: Answering simple questions. NEUROLOGICAL: Cranial nerves grossly intact; no facial asymmetry, power and sensation grossly intact. LYMPHATICS: No lymph nodes palpable in the axilla and neck MUSCULOSKELETAL: Evidence of OA INVESTIGATIONS, reviewed in the clinical context: Potassium 4.3 bun 49 and creatinine 1.59 Previous testing White count 11.2 hemoglobin 12.3 sodium 129 potassium 4.2 bun 53 creatinine 2.61 Labs from July 30 showed "creatinine 0.62 EKG tracing personally reviewed by me-left bundle-branch block Assessment: -Acute kidney injury, under patient was on Cozaar, naproxen, Maxide, slowly improving -Hyperlipidemia -Essential hypertension -Hypothyroid -Irritable bowel syndrome -Anxiety depression otherwise specified -Cognitive impairment from late onset Alzheimer's dementia -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 Repeat labs in the morning. Encouraged patient to sit up in a chair. Care discussed the patient and the granddaughter at the bedside
[2019-08-10] MEDS: SODIUM CHLORIDE 0.9% 1,000 ML IV SCH (02:42)
[2019-08-10 07:53] LABS: Calcium 8.4 mg/dL (8.4-10.2); Magnesium 1.3 mg/dL (1.6-2.3)
[2019-08-10] MEDS: IPRATROPIUM-ALBUTEROL 3 ML NEB INHALATION SCH ×2 (08:13→11:53)
[2019-08-10] MEDS: METOPROLOL TARTRATE 12.5 MG TAB PO SCH (08:43)
[2019-08-10] MEDS: LEVOTHYROXINE 50 MCG TAB PO SCH (08:43)
[2019-08-10] MEDS: amLODIPine 5 MG TAB PO SCH (08:44)
[2019-08-10] MEDS: APIXABAN 5 MG TAB PO SCH (08:44)
[2019-08-10] MEDS: AMIODARONE 200 MG TAB PO SCH (08:44)
[2019-08-10] MEDS: OXcarbazepine 300 MG TAB PO SCH (08:44)
[2019-08-10] MEDS: FAMOTIDINE 20 MG TAB PO SCH (08:44)
--- NOTE | 2019-08-10 11:39 | P.PN ---
Subjective Patient is seen in follow-up for acute kidney injury. Renal function is improving. Good urine output. No vomiting. Denies chest pain or shortness of breath. Vital signs are stable. General: The patient appeared well nourished and normally developed. HEENT: Head exam is unremarkable. Neck is without jugular venous distension. LUNGS: Breath sounds decreased. HEART: Rate and Rhythm are regular. First and second heart sounds normal. No murmurs, rubs or gallops. ABDOMEN: Abdominal exam reveals normal bowel sounds. Non-tender and non-distend ed. No evidence of peritonitis. EXTREMITITES: No clubbing, cyanosis, or edema. Objective - Vital Signs Vital signs: Vital Signs Temp 98 F 08/10/19 05:00 Pulse 60 08/10/19 08:26 Resp 20 08/10/19 05:00 BP 139/50 08/10/19 05:00 Pulse Ox 95 08/10/19 08:17 Intake & Output 08/09/19 08/10/19 08/10/19 18:59 06:59 18:59 Intake Total 640 1560 Balance 640 1560 Intake: Intake, IV Titration 640 960 Amount Sodium Chloride 0.9% 1, 640 960 000 ml @ 80 mls/hr IV . [id number] [facility] Rx#:[id number] Oral 600 Other: Voiding Method Bedside Commode Bedside Commode Diaper Diaper # Voids 1 3 # Bowel Movements 4 - Labs CBC & Chem 7: 08/07/19 22:15 08/10/19 07:05 Labs: Abnormal Lab Results - Last 24 Hours (Table) 08/09/19 08/10/19 Range/Units 19:50 07:05 Sodium 134 L (137-145) mmol/L BUN 20 H (7-17) mg/dL Creatinine 1.19 H (0.52-1.04) mg/dL Magnesium 1.3 L (1.6-2.3) mg/dL Ur Leukocyte Esterase Small H (Negative) Urine WBC 8 H (0-5) /hpf Urine Bacteria Rare H (None) /hpf Urine Mucus Rare H (None) /hpf Assessment and Plan Plan: Assessment: 1. Acute kidney injury mostly prerenal secondary to nonsteroidals, diuretics and hemodynamic instability. Creatinine 2.61 on admission and is down to 1.19 today. Urinalysis is benign. No hydronephrosis noted on kidney ultrasound. 2. Chronic diastolic CHF. 3. Hypovolemic hyponatremia. Better. 4. Benign hypertension. Controlled. 5. Hypomagnesemia from poor oral intake and GI losses. Plan: Decrease rate of normal saline 50 mL an hour. Hold diuretics. Replace magnesium. 3 g IV today.
[2019-08-10 11:47] VITALS: BP 132/75; RESP 17; TEMP 97.7
[2019-08-10] MEDS ORDERED: MAGNESIUM SULFATE-D5W PMX 1 GM in DEXTROSE/WATER 1 100ML.BAG IVPB SCH (12:00)
[2019-08-10 12:04] VITALS: PULSE 60
--- NOTE | 2019-08-13 18:35 | P.DS ---
Providers Date of admission: 08/07/19 23:45 Expected date of discharge: 08/10/19 Attending physician: David Clayton Consults: 08/07/19 23:46 Consult Physician Routine Consulting Provider: Jr Whittaker Consult Reason/Comments: meghan Do you want consulting provider notified?: Yes Primary care physician: Lewis Kinney [facility] Course: Chief Complaint: Weak and tired Hospital course: very pleasant 83-year-old patient of Dr. Lewis Kinney. Chronic stable medical conditions include hypertension, hyperlipidemia, hypothyroid, chronic low back pain, irritable bowel syndrome, , anxiety depression, Alzheimer's dementia. Recently in the hospital with paroxysmal atrial fibrillation and viral tracheobronchitis. Patient lives with her elder son. Patient presents with feeling weak tired rundown lethargic. No fever no chills. No cough no urinary symptoms.. Admitted with acute kidney injury. Due to renal offensive medications. Starting IV fluids. Naproxen and Maxzide was discontinued. BUN and creatinine was 53/2.61 on the time of admission and upon discharge was 20/1.19. Today-Doing better. Tolerated diet. More comfortable. Consultation: Dr. Rodriguez from nephrology Physical examination: VITAL SIGNS: 97.7, 59, 17, 132/75, 96% room air GENERAL: Laying in bed, comfortable EYES: Pupils equal. Conjunctiva normal. HEENT: External appearance of nose and ears normal, oral cavity grossly normal. NECK: JVD not raised; masses not palpable. HEART: First and second heart sounds are normal; no edema. LUNGS: Respiratory rate normal, decreased breath sounds. ABDOMEN: Soft, nontender, liver spleen not palpable, no masses palpable. PSYCH: Answering simple questions. 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 -Hyponatremia likely from decreased salt intake -Left bundle-branch block -Paroxysmal atrial fibrillation, chronically on eliquis Disposition: Home Plan - Discharge Summary Discharge Rx Participant: No New Discharge Prescriptions: New Magnesium Oxide [Mag-Ox] 400 mg PO DAILY #30 tablet Continue Oxybutynin Chloride [Ditropan XL] 5 mg PO HS Losartan [Cozaar] 50 mg PO DAILY OXcarbazepine [Trileptal] 300 mg PO TID Levothyroxine Sodium [Synthroid] 50 mcg PO AC-BRKFST Ubidecarenone [Co Q-10] 100 mg PO HS amLODIPine [Norvasc] 5 mg PO DAILY Omeprazole 40 mg PO HS Famotidine [Pepcid] 20 mg PO BID Vit C/E/Zn/Coppr/Lutein/Zeaxan [Preservision Areds 2 Softgel] 1 cap PO DAILY@1200 Cholecalciferol [Vitamin D3 (25 Mcg = 1000 Iu)] 1,000 unit PO DAILY@1200 Amiodarone [Cordarone] 200 mg PO BID #60 tab Apixaban [Eliquis] 5 mg PO BID #60 tab Metoprolol Tartrate [Lopressor] 12.5 mg PO BID #60 dose Discontinued Naproxen Sodium [Aleve] 220 tab PO HS Triamterene-Hctz 37.5-25Mg [Maxzide 37.5-25] 1 tab PO DAILY Discharge Medication List Losartan [Cozaar] 50 mg PO DAILY 12/14/13 [History] Oxybutynin Chloride [Ditropan XL] 5 mg PO HS 12/14/13 [History] Levothyroxine Sodium [Synthroid] 50 mcg PO AC-BRKFST 09/14/17 [History] OXcarbazepine [Trileptal] 300 mg PO TID 09/14/17 [History] Ubidecarenone [Co Q-10] 100 mg PO HS 09/14/17 [History] amLODIPine [Norvasc] 5 mg PO DAILY 09/14/17 [History] Cholecalciferol [Vitamin D3 (25 Mcg = 1000 Iu)] 1,000 unit PO DAILY@1200 07/27/19 [History] Famotidine [Pepcid] 20 mg PO BID 07/27/19 [History] Omeprazole 40 mg PO HS 07/27/19 [History] Vit C/E/Zn/Coppr/Lutein/Zeaxan [Preservision Areds 2 Softgel] 1 cap PO DAILY@1200 07/27/19 [History] Amiodarone [Cordarone] 200 mg PO BID #60 tab 07/30/19 [Rx] Apixaban [Eliquis] 5 mg PO BID #60 tab 07/30/19 [Rx] Metoprolol Tartrate [Lopressor] 12.5 mg PO BID #60 dose 07/30/19 [Rx] Magnesium Oxide [Mag-Ox] 400 mg PO DAILY #30 tablet 08/10/19 [Rx] Follow up Appointment(s)/Referral(s): [facility], [NON-STAFF] - 1 Week Lewis Kinney MD [Primary Care Provider] - 08/12/19 1:15 pm Patient Instructions/Handouts: Magnesium Oxide (By mouth), Acute Kidney Injury (DC), Hyponatremia (DC) Activity/Diet/Wound Care/Special Instructions: bmp- 3 days Discharge Disposition: HOME WITH HOME HEALTH SERVICES
== END 2019-08-10 14:05 | disposition home health service (06) | DRG 683 ==
LOC: EC 21:51 → 5NMEDONC 23:45
PROVIDERS: ADMIT Hospitalist; ATTEND Hospitalist
DX: N17.0 Acute kidney failure with tubular necrosis (principal); E87.1 Hypo-osmolality and hyponatremia; E87.2 Acidosis; I50.32 Chronic diastolic (congestive) heart failure; Z96.649 Presence of unspecified artificial hip joint; T39.395A Adverse effect of other nonsteroidal anti-inflammatory drugs [NSAID], initial encounter; I48.0 Paroxysmal atrial fibrillation; F02.80 Dementia in other diseases classified elsewhere, unspecified severity, without behavioral disturbance, psychotic disturbance, mood disturbance, and anxiety; E78.5 Hyperlipidemia, unspecified; E03.9 Hypothyroidism, unspecified; E83.42 Hypomagnesemia; E86.1 Hypovolemia; F41.8 Other specified anxiety disorders; G30.1 Alzheimer's disease with late onset; G89.29 Other chronic pain; I11.0 Hypertensive heart disease with heart failure; I44.7 Left bundle-branch block, unspecified; K58.9 Irritable bowel syndrome, unspecified; R26.9 Unspecified abnormalities of gait and mobility; Z79.01 Long term (current) use of anticoagulants; Z79.899 Other long term (current) drug therapy; Z79.890 Hormone replacement therapy; Z90.710 Acquired absence of both cervix and uterus; Z87.891 Personal history of nicotine dependence; Z91.81 History of falling; Z98.890 Other specified postprocedural states
CPT/HCPCS: 36415; 76770; 80048; 81001; 82140; 82272; 83735; 83880; 84484; 85025; 85610; 85730; 93005; 94640; 94760; 96360; 99285

== ENCOUNTER 2020-08-10 14:34 | Emergency (ER) | payer MEDICARE ==
[2020-08-10 14:52] VITALS: RESP 18
--- NOTE | 2020-08-10 15:40 | ED ---
Headache HPI - General Chief Complaint: Headache Stated Complaint: Headache, BP issue Time Seen by Provider: 08/10/20 15:00 Source: patient, family, RN notes reviewed Mode of arrival: EMS Limitations: no limitations - History of Present Illness Initial Comments: This is a 84-year-old female with a prior history of cerebral aneurysm when in her 40s who states she has thrown o'clock today of shooting pain going from her neck up to her head no fevers chills nausea vomiting sweats she has also however developed occasional shakes she denies any cough or phlegm production a dysuria or hematuria though per her son she was on the toilet for long time today. No focal weakness she states the headaches have improved it. She has a history of A. fib and has been Eliquis for about one year. The palpitations. She did lay down after the headache started that is when the shakes started. Pain originates behind her right ear she states. No trauma reported no cough or sneezing no falls. MD Complaint: headache, other - Related Data Home Medications Medication Instructions Recorded Confirmed Losartan [Cozaar] 50 mg PO DAILY 12/14/13 08/08/19 Oxybutynin Chloride [Ditropan XL] 5 mg PO HS 12/14/13 08/08/19 Levothyroxine Sodium [Synthroid] 50 mcg PO AC-BRKFST 09/14/17 08/08/19 OXcarbazepine [Trileptal] 300 mg PO TID 09/14/17 08/08/19 Ubidecarenone [Co Q-10] 100 mg PO HS 09/14/17 08/08/19 amLODIPine [Norvasc] 5 mg PO DAILY 09/14/17 08/08/19 Cholecalciferol [Vitamin D3 (25 1,000 unit PO DAILY@1200 07/27/19 08/08/19 Mcg = 1000 Iu)] Famotidine [Pepcid] 20 mg PO BID 07/27/19 08/08/19 Omeprazole 40 mg PO HS 07/27/19 08/08/19 Vit C/E/Zn/Coppr/Lutein/Zeaxan 1 cap PO DAILY@1200 07/27/19 08/08/19 [Preservision Areds 2 Softgel] Previous Rx's Medication Instructions Recorded Amiodarone [Cordarone] 200 mg PO BID #60 tab 07/30/19 Apixaban [Eliquis] 5 mg PO BID #60 tab 07/30/19 Metoprolol Tartrate [Lopressor] 12.5 mg PO BID #60 dose 07/30/19 Magnesium Oxide [Mag-Ox] 400 mg PO DAILY #30 tablet 08/10/19 Azithromycin [Zithromax Z-pack (6 250 mg PO DIRECTED 5 Days #6 tab 08/10/20 tabs)] Allergies Allergy/AdvReac Type Severity Reaction Status Date / Time No Known Allergies Allergy Verified 08/10/20 15:23 Review of Systems ROS Statement: Those systems with pertinent positive or pertinent negative responses have been documented in the HPI. ROS Other: All systems not noted in ROS Statement are negative. Past Medical History Past Medical History: Atrial Fibrillation, GERD/Reflux, Hyperlipidemia, Hypertension, Thyroid Disorder Additional Past Medical History / Comment(s): aneurysm History of Any Multi-Drug Resistant Organisms: None Reported Past Surgical History: Back Surgery, Bladder Surgery, Hysterectomy, Orthopedic Surgery, Tonsillectomy Additional Past Surgical History / Comment(s): brain surgery Past Anesthesia/Blood Transfusion Reactions: No Reported Reaction Past Psychological History: Anxiety, Depression, No Psychological Hx Reported Additional Psychological History / Comment(s): Short Term Memory Loss - Past Family History Brother(s) Additional Family Medical History / Comment(s): pt. had a twin brother who was born with a bad heart valve General Exam - General Exam Comments Initial Comments: This is a well-developed well-nourished awake alert oriented 3 female Limitations: no limitations General appearance: alert, in no apparent distress Head exam: Present: atraumatic, normocephalic, normal inspection Eye exam: Present: normal appearance, PERRL, EOMI. Absent: scleral icterus, conjunctival injection, periorbital swelling ENT exam: Present: normal exam, mucous membranes moist Neck exam: Present: normal inspection. Absent: tenderness, meningismus, lymphadenopathy Respiratory exam: Present: normal lung sounds bilaterally. Absent: respiratory distress, wheezes, rales, rhonchi, stridor Cardiovascular Exam: Present: regular rate, normal rhythm, normal heart sounds. Absent: systolic murmur, diastolic murmur, rubs, gallop, clicks GI/Abdominal exam: Present: soft, normal bowel sounds. Absent: distended, tenderness, guarding, rebound, rigid Extremities exam: Present: normal inspection, full ROM, normal capillary refill. Absent: tenderness, pedal edema, joint swelling, calf tenderness Back exam: Present: normal inspection Neurological exam: Present: alert, oriented X3, CN II-XII intact, other (Occasional shakes noted bilaterally) Psychiatric exam: Present: normal affect, normal mood Skin exam: Present: warm, dry, intact, normal color. Absent: rash Course Vital Signs 08/10/20 08/10/20 08/10/20 14:41 15:52 17:00 Temperature 98.3 F Pulse Rate 73 65 61 Respiratory 18 18 18 Rate Blood Pressure 187/87 167/87 168/80 O2 Sat by Pulse 98 96 96 Oximetry Medical Decision Making - Medical Decision Making I did discuss findings with patient and family patient is feeling improved at this time she will be discharged after receiving antibiotics and be discharged home with a prescription. She is in agreement with this she does not want stay in hospital today. - Lab Data Result diagrams: 08/10/20 15:38 08/10/20 15:38 Lab Results 08/10/20 08/10/20 08/10/20 Range/Units 15:38 15:38 15:38 WBC 5.9 (3.8-10.6) k/uL RBC 4.56 (3.80-5.40) m/uL Hgb 12.3 (11.4-16.0) gm/dL Hct 39.6 (34.0-46.0) % MCV 86.9 (80.0-100.0) fL MCH 27.0 (25.0-35.0) pg MCHC 31.1 (31.0-37.0) g/dL RDW 15.4 (11.5-15.5) % Plt Count 287 (150-450) k/uL MPV 7.4 Neutrophils % 52 % Lymphocytes % 30 % Monocytes % 9 % Eosinophils % 5 % Basophils % 1 % Neutrophils # 3.1 (1.3-7.7) k/uL Lymphocytes # 1.8 (1.0-4.8) k/uL Monocytes # 0.5 (0-1.0) k/uL Eosinophils # 0.3 (0-0.7) k/uL Basophils # 0.1 (0-0.2) k/uL Sodium 136 L (137-145) mmol/L Potassium 5.0 (3.5-5.1) mmol/L Chloride 102 (98-107) mmol/L Carbon Dioxide 29 (22-30) mmol/L Anion Gap 5 mmol/L BUN 29 H (7-17) mg/dL Creatinine 0.84 (0.52-1.04) mg/dL Est GFR (CKD-EPI)AfAm 73 (>60 ml/min/1.73 sqM) Est GFR (CKD-EPI)NonAf 63 (>60 ml/min/1.73 sqM) Glucose 97 (74-99) mg/dL Calcium 10.0 (8.4-10.2) mg/dL Magnesium 2.2 (1.6-2.3) mg/dL Total Bilirubin 0.4 (0.2-1.3) mg/dL AST 33 (14-36) U/L ALT 20 (4-34) U/L Alkaline Phosphatase 106 (38-126) U/L Creatine Kinase 35 (30-135) U/L Troponin I (0.000-0.034) ng/mL Total Protein 7.3 (6.3-8.2) g/dL Albumin 4.0 (3.5-5.0) g/dL Urine Color Light Yellow Urine Appearance Clear (Clear) Urine pH 6.5 (5.0-8.0) Ur Specific [place] 1.010 (1.001-1.035) Urine Protein Negative (Negative) Urine Glucose (UA) Negative (Negative) Urine Ketones Negative (Negative) Urine Blood Negative (Negative) Urine Nitrite Negative (Negative) Urine Bilirubin Negative (Negative) Urine Urobilinogen <2.0 (<2.0) mg/dL Ur Leukocyte Esterase Moderate H (Negative) Urine RBC 1 (0-5) /hpf Urine WBC 9 H (0-5) /hpf Ur Squamous Epith Cells <1 (0-4) /hpf Urine Mucus Rare H (None) /hpf 08/10/20 Range/Units 15:38 WBC (3.8-10.6) k/uL RBC (3.80-5.40) m/uL Hgb (11.4-16.0) gm/dL Hct (34.0-46.0) % MCV (80.0-100.0) fL MCH (25.0-35.0) pg MCHC (31.0-37.0) g/dL RDW (11.5-15.5) % Plt Count (150-450) k/uL MPV Neutrophils % % Lymphocytes % % Monocytes % % Eosinophils % % Basophils % % Neutrophils # (1.3-7.7) k/uL Lymphocytes # (1.0-4.8) k/uL Monocytes # (0-1.0) k/uL Eosinophils # (0-0.7) k/uL Basophils # (0-0.2) k/uL Sodium (137-145) mmol/L Potassium (3.5-5.1) mmol/L Chloride (98-107) mmol/L Carbon Dioxide (22-30) mmol/L Anion Gap mmol/L BUN (7-17) mg/dL Creatinine (0.52-1.04) mg/dL Est GFR (CKD-EPI)AfAm (>60 ml/min/1.73 sqM) Est GFR (CKD-EPI)NonAf (>60 ml/min/1.73 sqM) Glucose (74-99) mg/dL Calcium (8.4-10.2) mg/dL Magnesium (1.6-2.3) mg/dL Total Bilirubin (0.2-1.3) mg/dL AST (14-36) U/L ALT (4-34) U/L Alkaline Phosphatase (38-126) U/L Creatine Kinase (30-135) U/L Troponin I <0.012 (0.000-0.034) ng/mL Total Protein (6.3-8.2) g/dL Albumin (3.5-5.0) g/dL Urine Color Urine Appearance (Clear) Urine pH (5.0-8.0) Ur Specific [place] (1.001-1.035) Urine Protein (Negative) Urine Glucose (UA) (Negative) Urine Ketones (Negative) Urine Blood (Negative) Urine Nitrite (Negative) Urine Bilirubin (Negative) Urine Urobilinogen (<2.0) mg/dL Ur Leukocyte Esterase (Negative) Urine RBC (0-5) /hpf Urine WBC (0-5) /hpf Ur Squamous Epith Cells (0-4) /hpf Urine Mucus (None) /hpf - EKG Data -: EKG Interpreted by Tx EKG shows normal: sinus rhythm EKG Comments: Sinus rhythm a 64. MN interval to 48, QRS duration 140 QT/QTC 454/468 nonspecific interventricular block - Radiology Data Radiology results: report reviewed (I did review the imaging and report. The patient did have evidence of a new infiltrate on the lateral chest x-ray also fluid in the right mastoid sinus.), image reviewed Disposition Clinical Impression: Pneumonia, Sinusitis Disposition: HOME SELF-CARE Condition: Good Instructions (If sedation given, give patient instructions): Acute Headache (ED), Sinusitis (ED), Community Acquired Pneumonia (ED) Prescriptions: Azithromycin [Zithromax Z-pack (6 tabs)] 250 mg PO DIRECTED 5 Days #6 tab Is patient prescribed a controlled substance at d/c from ED?: No Referrals: Lewis Kinney MD [Primary Care Provider] - 1-2 days
[2020-08-10 15:56] LABS: Appearance,Urine Clear (Clear); Bilirubin,Urine Negative (Negative); Blood,Urine Negative (Negative); Color,Urine Light Yellow; Glucose,Urine (UA) Negative (Negative); Ketones,Urine Negative (Negative); Leukocyte Esterase,Urine Moderate (Negative); Mucus,Urine Rare /hpf; Nitrite,Urine Negative (Negative); PH, Urine 6.5 (5.0-8.0); Protein,Urine Negative (Negative); RBC,Urine 1 /hpf (0-5); Squamous Epithelial Cell,Urine <1 /hpf (0-4); Urobilinogen,Urine <2.0 mg/dL (<2.0); WBC,Urine 9 /hpf (0-5)
[2020-08-10 16:00] LABS: Basophils # (A) 0.1 k/uL (0-0.2); Basophils % (A) 1 %; Eosinophils # (A) 0.3 k/uL (0-0.7); Eosinophils % (A) 5 %; HCT 39.6 % (34.0-46.0); HGB 12.3 gm/dL (11.4-16.0); Lymphocytes # (A) 1.8 k/uL (1.0-4.8); Lymphocytes % (A) 30 %; MCHC 31.1 g/dL (31.0-37.0); MCV 86.9 fL (80.0-100.0); Mean Platelet Volume 7.4; Monocytes # (A) 0.5 k/uL (0-1.0); Monocytes % (A) 9 %; Neutrophils # (A) 3.1 k/uL (1.3-7.7); Neutrophils % (A) 52 %; Platelet Count 287 k/uL (150-450); RBC 4.56 m/uL (3.80-5.40); RDW 15.4 % (11.5-15.5); WBC 5.9 k/uL (3.8-10.6)
[2020-08-10 16:05] LABS: Magnesium 2.2 mg/dL (1.6-2.3); Total Bilirubin 0.4 mg/dL (0.2-1.3); Total Protein 7.3 g/dL (6.3-8.2)
--- NOTE | 2020-08-10 16:35 | XR ---
EXAMINATION TYPE: XR chest 2V DATE OF EXAM: 08/10/2020 COMPARISON: 07/27/2019 HISTORY: 84-year-old female headache and shakiness TECHNIQUE: AP and lateral views FINDINGS: Heart is borderline enlarged. Aorta and pulmonary vasculature within normal limits. Focal opacity projecting in the posterior lower lung on the lateral view may be superimposition shado w. However, consideration should be given to CT to exclude focal pneumonia or mass as the density was not present on the prior radiograph. No pleural effusion. IMPRESSION: New focal opacity posterior lower lung on the lateral view. This may represent summation artifact but early pneumonia or mass here are not excluded.
--- NOTE | 2020-08-10 16:38 | CT ---
EXAMINATION TYPE: CT brain wo con DATE OF EXAM: 08/10/2020 COMPARISON: None HISTORY: 84-year-old female acute headache with normal neurologic exam, Shooting pain behind right ea r. TECHNIQUE: Examination was done in axial plane without intravenous contrast. Coronal and sagittal r econstructions performed. CT DLP: 1142.4 mGycm Automated exposure control for dose reduction was used. FINDINGS: Small amount of fluid within the inferior most right mastoid air cells. Middle ear cavities are clear . Previous left temporal craniectomy. Suspect prior aneurysm clips along the anterior left middle crani al fossa. 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 Moderate generalized atrophy including central cerebral volume loss and secondary mild ventriculomega ly. There is no evidence of acute intracranial hemorrhage, acute ischemic changes, mass, mass-effect, or extra-axial fluid collection. There is no effacement of cerebral sulci or basal subarachnoid cister ns there is no midline shift. Uriarte-white matter distinction is preserved. Mild mucosal thickening ethmoid air cells. IMPRESSION: 1. Small amount of fluid in the inferior right mastoid air cells. Correlate for any mastoid pain to e xclude mastoiditis. 2. Previous left temporal craniectomy with underlying aneurysm clip and extensive left temporal encep halomalacia. 3. Moderate generalized atrophy. No acute intracranial abnormality seen.
[2020-08-10] MEDS ORDERED: AZITHROMYCIN 500 MG TAB PO STA (17:10)
[2020-08-10] MEDS ORDERED: cefTRIAXone IN SWFI 1,000 MG/10 ML SYRINGE IVP STA (17:10)
[2020-08-10 17:57] VITALS: BP 144/72; PULSE 68; TEMP 98.1
== END 2020-08-10 17:40 | disposition home or self-care (01) ==
LOC: MERGE 14:34 → EC 14:34
DX: J32.9 Chronic sinusitis, unspecified (principal); J18.9 Pneumonia, unspecified organism; I10 Essential (primary) hypertension; E07.9 Disorder of thyroid, unspecified; E78.5 Hyperlipidemia, unspecified; K21.9 Gastro-esophageal reflux disease without esophagitis; F41.9 Anxiety disorder, unspecified; Z79.890 Hormone replacement therapy; Z79.899 Other long term (current) drug therapy
CPT/HCPCS: 36415; 93005; 80053; 82550; 83735; 84484; 85025; 81001; 87040; 71046; 70450; 99285; 96374; J0696

== ENCOUNTER → 2021-05-30 | Outpatient (CLI) | payer MEDICARE ==
--- NOTE | 2021-05-31 07:42 | CT ---
EXAMINATION TYPE: CT angio head DATE OF EXAM: 05/30/2021 4:56 PM COMPARISON: CT brain August 10, 2020 HISTORY: Cerebral aneurysm-nonruptured, [address] DLP: 1318.9 mGycm Automated exposure control for dose reduction was used. TECHNIQUE: Performed without and with IV Contrast, patient injected with 100 mL of Isovue 370. 3D reconstructed images are created on an independent workstation and reviewed.. FINDINGS: Noncontrast images redemonstrate left temporal craniectomy and left frontal craniotomy changes with 2 aneurysm clips in the left middle cerebral artery distribution causing streak artifact. There is briseida kground moderate diffuse cerebral atrophy and chronic small vessel ischemic changes redemonstrated. 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 CTA images show hypoplastic or occluded distal right vertebral artery. There is dominant left vertebr al artery filling the basilar artery. There are hypoplastic bilateral posterior communicating arterie s. There is no significant focal stenosis or aneurysm in the posterior circulation. Images of the anterior circulation show mild to moderate calcified plaque along the periphery of the distal internal carotid arteries. There is small caliber with patent anterior communicating artery on slice 214 of the tatyana data. There is artifact from aneurysm clips anterior to the left middle cerebra l artery making evaluation at this level suboptimal. There are a few small caliber branching vessels noted near this level. There is more difficult to accurately track in a contiguous fashion versus a s maller caliber branching vessels anterior to the right middle cerebral artery. The areas of tiny aneu rysm are suspected, one appears to originate from the anterior aspect of the distal left middle cereb ral artery or M3 segment before the trifurcation seen best on images 216 through 219. Tiny aneurysms from the smaller caliber branching vessels anterior to this level are also suspected. For reference o ne of the more prominent areas of concern noted image 220 with prominent branching outpouchings. IMPRESSION: 1. At site of aneurysm clips there is suspected tiny aneurysm from the anterior left M3 segment and t iny aneurysms in the region of the aneurysm clips from tiny branching vessels.
== END | disposition home or self-care (01) ==
LOC: RADCTMAIN 15:20
PROVIDERS: ATTEND Family Medicine
DX: I67.1 Cerebral aneurysm, nonruptured (principal)
CPT/HCPCS: 82565; 84520; 70496; 36415; Q9967

== ENCOUNTER 2023-08-22 09:15 | Inpatient (IN) | payer MEDICARE ==
--- NOTE | 2023-08-22 09:41 | ED ---
General Adult HPI - General Chief complaint: Fall Stated complaint: Fall Time Seen by Provider: 08/22/23 09:16 Source: patient, family, EMS, RN notes reviewed Mode of arrival: EMS Limitations: no limitations - History of Present Illness Initial comments: Patient is a pleasant 87-year-old female present to the emergency department feeling weak. Patient did have a fall out of bed last night. Patient denies any injury. Patient was helped in the bed. Patient feels fatigued and drowsy this morning. Patient normally uses a walker however feels more weak than normal. No isolated area of weakness. No new confusion. No fever. - Related Data Home Medications Medication Instructions Recorded Confirmed oxyBUTYnin chloride [Ditropan XL] 5 mg PO HS 12/14/13 08/22/23 Levothyroxine Sodium [Synthroid] 50 mcg PO AC-BRKFST 09/14/17 08/22/23 OXcarbazepine [Trileptal] 300 mg PO BID 09/14/17 08/22/23 Ubidecarenone [Co Q-10] 100 mg PO DAILY@119909/14/17 08/22/23 amLODIPine [Norvasc] 5 mg PO DAILY 09/14/17 08/22/23 Cholecalciferol [Vitamin D3 (25 25 mcg PO DAILY@119907/27/19 08/22/23 Mcg = 1000 Iu)] Famotidine [Pepcid] 20 mg PO BID 07/27/19 08/22/23 Omeprazole 40 mg PO HS 07/27/19 08/22/23 Vit C/E/Zn/Coppr/Lutein/Zeaxan 1 cap PO HS 07/27/19 08/22/23 [Preservision Areds 2 Softgel] Krill Oil 500 mg PO DAILY@1200 08/10/20 08/22/23 Metoprolol Tartrate [Lopressor] 12.5 mg PO DAILY 08/10/20 08/22/23 Ascorbic Acid [Vitamin C] 500 mg PO DAILY@119908/22/23 08/22/23 L.acidoph,Paracasei, B.lactis 1 cap PO DAILY 08/22/23 08/22/23 [Probiotic] Losartan Potassium 100 mg PO DAILY@1200 08/22/23 08/22/23 Mv-Min/FA/Vit K/Lutein/Zeaxant 1 cap PO DAILY@1200 08/22/23 08/22/23 [Preservision Areds 2 Plus Mv] Triamcinolone 0.1% Cream [Kenalog 1 applic TOPICAL BID PRN 08/22/23 08/22/23 0.1% Cream] Previous Rx's Medication Instructions Recorded Apixaban [Eliquis] 5 mg PO BID #60 tab 07/30/19 Allergies Allergy/AdvReac Type Severity Reaction Status Date / Time No Known Allergies Allergy Verified 08/22/23 14:02 Review of Systems ROS Statement: Those systems with pertinent positive or pertinent negative responses have been documented in the HPI. ROS Other: All systems not noted in ROS Statement are negative. Constitutional: Denies: fever Eyes: Denies: eye pain ENT: Denies: ear pain Respiratory: Denies: cough, dyspnea Cardiovascular: Denies: chest pain Endocrine: Denies: fatigue Gastrointestinal: Denies: abdominal pain Musculoskeletal: Denies: back pain Skin: Denies: rash Neurological: Reports: as per HPI. Denies: headache Past Medical History Past Medical History: Atrial Fibrillation, GERD/Reflux, Hyperlipidemia, Hypertension, Thyroid Disorder Additional Past Medical History / Comment(s): aneurysm History of Any Multi-Drug Resistant Organisms: None Reported Past Surgical History: Back Surgery, Bladder Surgery, Hysterectomy, Orthopedic Surgery, Tonsillectomy Additional Past Surgical History / Comment(s): brain surgery Past Anesthesia/Blood Transfusion Reactions: No Reported Reaction Past Psychological History: Anxiety, Depression, No Psychological Hx Reported Smoking Status: Never smoker Past Alcohol Use History: None Reported Past Drug Use History: None Reported - Past Family History Brother(s) Additional Family Medical History / Comment(s): pt. had a twin brother who was born with a bad heart valve General Exam Limitations: no limitations General appearance: alert, in no apparent distress Head exam: Present: atraumatic Eye exam: Present: normal appearance, PERRL, EOMI ENT exam: Present: mucous membranes dry Neck exam: Present: normal inspection. Absent: tenderness Respiratory exam: Present: normal lung sounds bilaterally Cardiovascular Exam: Present: regular rate, normal rhythm GI/Abdominal exam: Present: soft. Absent: tenderness Extremities exam: Present: normal inspection, full ROM. Absent: tenderness, pedal edema, calf tenderness Neurological exam: Present: alert, CN II-XII intact. Absent: motor sensory deficit Expanded Neurological exam: Present: protecting the airway Patient oriented to: Present: person, place. Absent: time (Family feels this is normal) Motor strength exam: RUE: 5, LUE: 5, RLE: 3, LLE: 3 Eye Response: (4) open spontaneously Motor Response: (6) obeys commands Verbal Response: (4) confused conversation Psychiatric exam: Present: normal affect, normal mood Skin exam: Present: normal color Course Vital Signs 08/22/23 08/22/23 09:17 12:13 Temperature 97.4 F L Pulse Rate 96 85 Respiratory 20 14 Rate Blood Pressure 127/67 121/66 O2 Sat by Pulse 95 95 Oximetry EKG Findings - EKG Results: EKG: interpreted by BARBD (Left axis. Left bundle branch block.), sinus rhythm Medical Decision Making - Medical Decision Making Was pt. sent in by a medical professional or institution (, PA, SHEET ROCK TAPER HELPER, urgent care, hospital, or prison...) When possible be specific @ -[No] Did you speak to anyone other than the patient for history (EMS, parent, family, police, friend...)? What history was obtained from this source @ -Family is present to help provide history as patient is a poor historian. Did you review nursing and triage notes (agree or disagree)? Why? @ -[I reviewed and agree with nursing and triage notes] Were old charts reviewed (outside hosp., previous admission, EMS record, old EKG, old radiological studies, urgent care reports/EKG's, prison records)? Report findings @ -Previous chest x-ray reviewed. Previous labs reviewed Differential Diagnosis (chest pain, altered mental status, abdominal pain women, abdominal pain men, vaginal bleeding, weakness, fever, dyspnea, syncope, headache, dizziness, GI bleed, back pain, seizure, CVA, palpatations, mental health, musculoskeletal)? @ -Differential Weakness: Hypoglycemia, shock, sepsis, hyponatremia, anemia, infection, MA, ETOH, adverse medicine reaction, overdose, stroke, this is not meant to be an all-inclusive list. EKG interpreted by me (3pts min.). @ -[As above] X-rays interpreted by me (1pt min.). @ -Chest x-ray shows no acute process. CT interpreted by me (1pt min.). @ -Patient CT scan of the brain and atrophy without acute abnormality. Encephalomalacia. U/S interpreted by me (1pt. min.). @ -Ultrasound without obvious stones What testing was considered but not performed or refused? (CT, X-rays, U/S, labs)? Why? @ -[CT scan of abdomen will be added] What meds were considered but not given or refused? Why? @ -[None] Did you discuss the management of the patient with other professionals (professionals i.e. , PA, SHEET ROCK TAPER HELPER, lab, RT, psych nurse, transition social worker, grain grader, teacher, privacy officer, field case manager)? Give summary @ -Case was discussed with Dr. Montalvo, who will admit covering Dr. Kinney. He does agree with adding CT scan of abdomen. Was smoking cessation discussed for >3mins.? @ -[No] Was critical care preformed (if so, how long)? @ -[No] Were there social determinants of health that impacted care today? How? (Homelessness, low income, unemployed, alcoholism, drug addiction, transportation, low edu. Level, literacy, decrease access to med. care, fdc, rehab)? @ -[No] Was there de-escalation of care discussed even if they declined (Discuss DNR or withdrawal of care, Hospice)? DNR status @ -[No] What co-morbidities impacted this encounter? (DM, HTN, Smoking, COPD, CAD, Cancer, CVA, ARF, Chemo, Hep., AIDS, mental health diagnosis, sleep apnea, morbid obesity)? @ -[None] Was patient admitted / discharged? Hospital course, mention meds given and route, prescriptions, significant lab abnormalities, going to OR and other pertinent info. @ -Patient reevaluated and resting comfortably in bed. Patient and family are updated on results and plan. Patient will be admitted. There is concern for urinary tract infection noticed at 1425. Admission orders written. Undiagnosed new problem with uncertain prognosis? @ -[No] Drug Therapy requiring intensive monitoring for toxicity (Heparin, Nitro, Insulin, Cardizem)? @ -[No] Were any procedures done? @ -[No] Diagnosis/symptom? @ -Weakness, urinary tract infection Acute, or Chronic, or Acute on Chronic? @ -Acute, acute Uncomplicated (without systemic symptoms) or Complicated (systemic symptoms)? @ -[default] Side effects of treatment? @ -[No] Exacerbation, Progression, or Severe Exacerbation? @ -[No] Poses a threat to life or bodily function? How? (Chest pain, USA, MA, pneumonia, PE, COPD, DKA, ARF, appy, cholecystitis, CVA, Diverticulitis, Homicidal, Suicidal, threat to staff... and all critical care pts) @ -[No] - Lab Data Result diagrams: 08/22/23 09:42 08/22/23 09:42 Lab Results 08/22/23 08/22/23 08/22/23 Range/Units 09:42 09:42 09:42 WBC 18.3 H (3.8-10.6) k/uL RBC 4.28 (3.80-5.40) m/uL Hgb 13.6 (11.4-16.0) gm/dL Hct 40.1 (34.0-46.0) % MCV 93.7 (80.0-100.0) fL MCH 31.8 (25.0-35.0) pg MCHC 34.0 (31.0-37.0) g/dL RDW 13.7 (11.5-15.5) % Plt Count 212 (150-450) k/uL MPV 7.3 Neutrophils % (Manual) 81 % Band Neuts % (Manual) 12 % Lymphocytes % (Manual) 3 % Monocytes % (Manual) 6 % Neutrophils # (Manual) 17.00 H (1.3-7.7) k/uL Lymphocytes # (Manual) 0.55 L (1.0-4.8) k/uL Monocytes # (Manual) 1.10 H (0-1.0) k/uL Nucleated RBCs 0 (0-0) /100 WBC Manual Slide Review Performed RBC Morphology Normal PT 10.8 (10.0-12.5) sec INR 1.0 (<1.2) APTT 23.9 (22.0-30.0) sec Sodium (137-145) mmol/L Potassium (3.5-5.1) mmol/L Chloride (98-107) mmol/L Carbon Dioxide (22-30) mmol/L Anion Gap mmol/L BUN (7-17) mg/dL Creatinine (0.52-1.04) mg/dL Est GFR (CKD-EPI)AfAm (>60 ml/min/1.73 sqM) Est GFR (CKD-EPI)NonAf (>60 ml/min/1.73 sqM) Glucose (74-99) mg/dL Lactic Ac Sepsis Rflx Plasma Lactic Acid Garrett (0.7-2.0) mmol/L Calcium (8.4-10.2) mg/dL Magnesium (1.6-2.3) mg/dL Total Bilirubin (0.2-1.3) mg/dL AST (14-36) U/L ALT (4-34) U/L Alkaline Phosphatase (38-126) U/L Troponin I (0.000-0.034) ng/mL Total Protein (6.3-8.2) g/dL Albumin (3.5-5.0) g/dL Amylase (30-110) U/L Lipase (23-300) U/L Urine Color Yellow Urine Appearance Cloudy H (Clear) Urine pH 7.0 (5.0-8.0) Ur Specific [place] 1.012 (1.001-1.035) Urine Protein Trace H (Negative) Urine Glucose (UA) Negative (Negative) Urine Ketones Negative (Negative) Urine Blood Negative (Negative) Urine Nitrite Negative (Negative) Urine Bilirubin Negative (Negative) Urine Urobilinogen 3.0 (<2.0) mg/dL Ur Leukocyte Esterase Moderate H (Negative) Urine WBC 30 H (0-5) /hpf Ur Squamous Epith Cells <1 (0-4) /hpf Urine Bacteria Occasional H (None) /hpf Hyaline Casts 3 H (0-2) /lpf Urine Mucus Rare H (None) /hpf 08/22/23 08/22/23 08/22/23 Range/Units 09:42 09:42 09:42 WBC (3.8-10.6) k/uL RBC (3.80-5.40) m/uL Hgb (11.4-16.0) gm/dL Hct (34.0-46.0) % MCV (80.0-100.0) fL MCH (25.0-35.0) pg MCHC (31.0-37.0) g/dL RDW (11.5-15.5) % Plt Count (150-450) k/uL MPV Neutrophils % (Manual) % Band Neuts % (Manual) % Lymphocytes % (Manual) % Monocytes % (Manual) % Neutrophils # (Manual) (1.3-7.7) k/uL Lymphocytes # (Manual) (1.0-4.8) k/uL Monocytes # (Manual) (0-1.0) k/uL Nucleated RBCs (0-0) /100 WBC Manual Slide Review RBC Morphology PT (10.0-12.5) sec INR (<1.2) APTT (22.0-30.0) sec Sodium 140 (137-145) mmol/L Potassium 3.4 L (3.5-5.1) mmol/L Chloride 108 H (98-107) mmol/L Carbon Dioxide 22 (22-30) mmol/L Anion Gap 10 mmol/L BUN 20 H (7-17) mg/dL Creatinine 0.96 (0.52-1.04) mg/dL Est GFR (CKD-EPI)AfAm 61 (>60 ml/min/1.73 sqM) Est GFR (CKD-EPI)NonAf 53 (>60 ml/min/1.73 sqM) Glucose 101 H (74-99) mg/dL Lactic Ac Sepsis Rflx Plasma Lactic Acid Garrett 4.1 H* (0.7-2.0) mmol/L Calcium 8.8 (8.4-10.2) mg/dL Magnesium 1.9 (1.6-2.3) mg/dL Total Bilirubin 1.5 H (0.2-1.3) mg/dL AST 942 H (14-36) U/L ALT 601 H (4-34) U/L Alkaline Phosphatase 201 H (38-126) U/L Troponin I 0.031 (0.000-0.034) ng/mL Total Protein 5.6 L (6.3-8.2) g/dL Albumin 3.1 L (3.5-5.0) g/dL Amylase (30-110) U/L Lipase (23-300) U/L Urine Color Urine Appearance (Clear) Urine pH (5.0-8.0) Ur Specific [place] (1.001-1.035) Urine Protein (Negative) Urine Glucose (UA) (Negative) Urine Ketones (Negative) Urine Blood (Negative) Urine Nitrite (Negative) Urine Bilirubin (Negative) Urine Urobilinogen (<2.0) mg/dL Ur Leukocyte Esterase (Negative) Urine WBC (0-5) /hpf Ur Squamous Epith Cells (0-4) /hpf Urine Bacteria (None) /hpf Hyaline Casts (0-2) /lpf Urine Mucus (None) /hpf 08/22/23 08/22/23 08/22/23 Range/Units 10:22 12:08 13:32 WBC (3.8-10.6) k/uL RBC (3.80-5.40) m/uL Hgb (11.4-16.0) gm/dL Hct (34.0-46.0) % MCV (80.0-100.0) fL MCH (25.0-35.0) pg MCHC (31.0-37.0) g/dL RDW (11.5-15.5) % Plt Count (150-450) k/uL MPV Neutrophils % (Manual) % Band Neuts % (Manual) % Lymphocytes % (Manual) % Monocytes % (Manual) % Neutrophils # (Manual) (1.3-7.7) k/uL Lymphocytes # (Manual) (1.0-4.8) k/uL Monocytes # (Manual) (0-1.0) k/uL Nucleated RBCs (0-0) /100 WBC Manual Slide Review RBC Morphology PT (10.0-12.5) sec INR (<1.2) APTT (22.0-30.0) sec Sodium (137-145) mmol/L Potassium (3.5-5.1) mmol/L Chloride (98-107) mmol/L Carbon Dioxide (22-30) mmol/L Anion Gap mmol/L BUN (7-17) mg/dL Creatinine (0.52-1.04) mg/dL Est GFR (CKD-EPI)AfAm (>60 ml/min/1.73 sqM) Est GFR (CKD-EPI)NonAf (>60 ml/min/1.73 sqM) Glucose (74-99) mg/dL Lactic Ac Sepsis Rflx Y Plasma Lactic Acid Garrett 1.4 (0.7-2.0) mmol/L Calcium (8.4-10.2) mg/dL Magnesium (1.6-2.3) mg/dL Total Bilirubin (0.2-1.3) mg/dL AST (14-36) U/L ALT (4-34) U/L Alkaline Phosphatase (38-126) U/L Troponin I (0.000-0.034) ng/mL Total Protein (6.3-8.2) g/dL Albumin (3.5-5.0) g/dL Amylase 169 H (30-110) U/L Lipase 104 (23-300) U/L Urine Color Urine Appearance (Clear) Urine pH (5.0-8.0) Ur Specific [place] (1.001-1.035) Urine Protein (Negative) Urine Glucose (UA) (Negative) Urine Ketones (Negative) Urine Blood (Negative) Urine Nitrite (Negative) Urine Bilirubin (Negative) Urine Urobilinogen (<2.0) mg/dL Ur Leukocyte Esterase (Negative) Urine WBC (0-5) /hpf Ur Squamous Epith Cells (0-4) /hpf Urine Bacteria (None) /hpf Hyaline Casts (0-2) /lpf Urine Mucus (None) /hpf Disposition Clinical Impression: Weakness, Urinary tract infection Disposition: ADMITTED IP TO THIS HOSP Is patient prescribed a controlled substance at d/c from ED?: No Referrals: Lewis Kinney MD [Primary Care Provider] - 1-2 days Time of Disposition: 14:32
[2023-08-22 10:06] LABS: HCT 40.1 % (34.0-46.0); HGB 13.6 gm/dL (11.4-16.0); MCH 31.8 pg (25.0-35.0); MCV 93.7 fL (80.0-100.0); Mean Platelet Volume 7.3; Platelet Count 212 k/uL (150-450); RBC 4.28 m/uL (3.80-5.40); RDW 13.7 % (11.5-15.5); WBC 18.3 k/uL (3.8-10.6)
[2023-08-22 10:08] LABS: Partial Thromboplastin Time 23.9 sec (22.0-30.0); Prothrombin Time 10.8 sec (10.0-12.5)
[2023-08-22 10:16] LABS: ALT 601 U/L (4-34); African American GFR (CKD) 61 (>60 ml/min/1.73 sqM); Albumin 3.1 g/dL (3.5-5.0); Alkaline Phosphatase 201 U/L (38-126); Anion Gap 10 mmol/L; Blood Urea Nitrogen 20 mg/dL (7-17); Calcium 8.8 mg/dL (8.4-10.2); Carbon Dioxide 22 mmol/L (22-30); Chloride 108 mmol/L (98-107); Glucose 101 mg/dL (74-99); Magnesium 1.9 mg/dL (1.6-2.3); Non-African American GFR(CKD) 53 (>60 ml/min/1.73 sqM); Potassium 3.4 mmol/L (3.5-5.1); Sodium 140 mmol/L (137-145); Total Bilirubin 1.5 mg/dL (0.2-1.3); Total Protein 5.6 g/dL (6.3-8.2)
[2023-08-22 10:28] LABS: Band Neutrophils % 12 %; Lymphocytes # (M) 0.55 k/uL (1.0-4.8); Neutrophils % (M) 81 %; Nucleated Red Blood Cells 0 /100 WBC (0-0); Total Cells Counted 200
[2023-08-22 10:30] LABS: RBC Morphology Normal
--- NOTE | 2023-08-22 10:30 | CT ---
EXAMINATION TYPE: CT brain joseine wo con DATE OF EXAM: 08/22/2023 COMPARISON: Brain 08/10/2020 HISTORY: 87-year-old female with pain after fall CT DLP: 1403.1 mGycm Automated exposure control for dose reduction was used. Technique: Examination of the head was done in axial plane without intravenous contrast. Coronal and sagittal reconstructions performed. CT of the cervical spine was obtained in axial plane without intravenous injection of contrast mater ial. Coronal and sagittal reformatted images were obtained from the axial views for evaluation of f ractures, spinal alignment and canal. FINDINGS: Head: Redemonstrated left frontotemporal craniotomy flap with large underlying area of encephalomalacia kimberli ecially within the left middle cranial fossa. Multiple surgical clips are present at the left MCA bif urcation region. There is mild to moderate generalized supratentorial volume loss. Secondary mild ventriculomegaly rem ains unchanged. Atherosclerotic calcifications in the carotid siphons. Mild to moderate patchy white matter hypodensities in both cerebral hemispheres. There is no evidence of acute intracranial hemorrhage, acute ischemic changes, mass, mass-effect, or extra-axial fluid collection. There is no effacement of cerebral sulci or basal subarachnoid cister ns. There is no midline shift. Uriarte-white matter distinction is preserved. Paranasal sinuses and mastoid air cells well pneumatized. Orbits and globes are intact. Cervical spine: No craniocervical junction abnormally, predental space widening, or prevertebral soft tissue swelling . Degenerative change of the C1 dens articulation. Moderate to advanced multilevel spondylotic change. There is some degenerative bony ankylosis along the posterior elements of C2-C4 levels. Fixed grade 1 anterolisthesis at C3-C4 and C4-C5. Additional grade 1 anterolisthesis C7-T1, and T1-T2 . No acute fracture seen of the cervical spine. No significant spinal canal stenosis apparent by CT. Mo derate right neuroforaminal stenosis C4-C5, bilaterally C5-C6. Mild and both side C6-C7. Biapical pleural parenchymal scarring noted. There is some mosaic attenuation that could reflect mild pulmonary vascular congestion or small airways disease. Sagittal and coronal reformatted images confirm above findings. COMBINED IMPRESSION: 1. Redemonstrated left frontotemporal craniotomy flap with underlying large area of encephalomalacia in the left middle cranial fossa and previous aneurysm clips at the left MCA bifurcation region. 2. Similar mild to moderate generalized atrophy. Secondary mild ventriculomegaly is also unchanged. N o acute intracranial abnormality seen. 3. Moderate to advanced spondylotic change cervical spine. Degenerative grade 1 spondylolisthesis as above. No acute fracture seen.
[2023-08-22 11:00] LABS: AST 942 U/L (14-36)
--- NOTE | 2023-08-22 11:21 | XR ---
EXAMINATION TYPE: XR chest 2V DATE OF EXAM: 08/22/2023 COMPARISON: 08/10/2020 HISTORY: Shortness of breath TECHNIQUE: Frontal and lateral views of the chest are obtained. FINDINGS: Scattered senescent parenchymal changes noted. Hyperinflation compatible with COPD. No evidence for infiltrate. No evidence for atelectasis. Heart size is stable. Mediastinal structures are stable and grossly unremarkable. No evidence for hilar prominence. Degenerative changes dorsal spine. IMPRESSION: 1. No evidence for acute pulmonary disease.
[2023-08-22] MEDS: SODIUM CHLORIDE 0.9% 1,000 ML IV STA ×2 (11:36→16:20)
[2023-08-22] MEDS: SODIUM CHLORIDE 0.9% 500 ML 500 ML IV STA (11:36)
[2023-08-22 12:31] LABS: Appearance,Urine Cloudy (Clear); Bacteria,Urine Occasional /hpf; Bilirubin,Urine Negative (Negative); Blood,Urine Negative (Negative); Color,Urine Yellow; Glucose,Urine (UA) Negative (Negative); Hyaline Casts,Urine 3 /lpf (0-2); Ketones,Urine Negative (Negative); Leukocyte Esterase,Urine Moderate (Negative); Mucus,Urine Rare /hpf; Nitrite,Urine Negative (Negative); Protein,Urine Trace (Negative); Specific Gravity,Urine 1.012 (1.001-1.035); Squamous Epithelial Cell,Urine <1 /hpf (0-4); WBC,Urine 30 /hpf (0-5)
[2023-08-22 12:37] LABS: Amylase 169 U/L (30-110); Lipase 104 U/L (23-300)
--- NOTE | 2023-08-22 12:53 | US ---
EXAMINATION TYPE: US gallbladder DATE OF EXAM: 08/22/2023 COMPARISON: 03/25/19 CLINICAL INDICATION: Female, 87 years old with history of eval; eval GB TECHNIQUE: Multiple sonographic images of the right upper quadrant are obtained. FINDINGS: EXAM MEASUREMENTS: Liver Length: 14.7 cm Gallbladder Wall: 0.3 cm CBD: obscured by bowel and stones Right Kidney: 7.2x3.3x3.6 cm [employer] ANCHOR NOTES: Pancreas: Tail obscured by overlying bowel gas Liver: wnl as visualized Gallbladder: wall at upper limits, pericystic fluid noted, several stones noted within Evidence for sonographic Alfredo's sign: No CBD: Obscured by overlying bowel gas Right Kidney: No hydronephrosis or masses seen exam limited by limited patient mobility, shadowing, and bowel gas IMPRESSION: There is evidence of cholelithiasis.
[2023-08-22] MEDS ORDERED: NALOXONE 0.4 MG/ML 1 ML VIAL IV PRN (14:32)
--- NOTE | 2023-08-22 15:32 | CT ---
EXAMINATION TYPE: CT abdomen pelvis w con DATE OF EXAM: 08/22/2023 COMPARISON: 09/14/2017 HISTORY: 87-year-old female fall, transaminitis TECHNIQUE: Contiguous axial scanning of the abdomen and pelvis following administration of 100 ml Iso sudhir 300 IV contrast. Delayed images through the kidneys and coronal/sagittal reconstructions perform ed. CT DLP: 1006.8 mGycm Automated exposure control for dose reduction was used. FINDINGS: The heart is borderline enlarged without pericardial effusion. Prominent dependent atelectasis in the visualized lower lungs. No pleural effusion. There is a small to moderate-sized hiatal hernia. No focal liver lesion. Portal venous system is patent. No evident biliary ductal dilatation. Gallbladder is hydropic and 4.4 cm wide with mild edematous wall thickening and suggestion of layerin g gravel/calculi. Adrenal glands, spleen, pancreas within normal limits. Tiny 6 mm cortical cyst left kidney. Unchanged extrarenal pelvis right kidney. 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 No dilated small bowel, free fluid, or free air. No mesenteric or retroperitoneal adenopathy. Mild overall stool burden. Lower descending and sigmoid colonic diverticulosis. No pericolonic inflam matory change. Extensive artifact relating to the patient's bilateral total hip arthroplasties obscures visualizatio n of the pelvis. Questionable asymmetric mural thickening along the right lateral wall of the rectum, axial image 84 and coronal image 61. Unclear if this represents adherent stool material. Bones: Degenerated levoconvex scoliosis. Patient status post L2-L5 posterior lumbar fusion. IMPRESSION: 1. EDEMATOUS GALLBLADDER WALL THICKENING WITH SUGGESTION OF LAYERING GRAVEL/SMALL CALCULI. UNABLE TO EXCLUDE EARLY ACUTE CHOLECYSTITIS. CLINICALLY CORRELATE. 2. POSSIBLE MURAL BASED SOFT TISSUE ALONG THE RIGHT LATERAL WALL OF THE RECTUM VERSUS ADHERENT STOOL MATERIAL (CORONAL IMAGE 61 AND AXIAL IMAGE 84). DIRECT VISUALIZATION WHEN PATIENT ABLE TO EXCLUDE UND ERLYING NEOPLASM. 3. [id number] SIZE HIATAL HERNIA. LEFT-SIDED COLONIC DIVERTICULOSIS.
[2023-08-22] MEDS: PIPERACILLIN-TAZOBACTAM 3.375 GM in SODIUM CHLORIDE 0.9% 100 ML IVPB STA (16:18)
[2023-08-22] MEDS: SODIUM CHLORIDE 0.9% 1,000 ML IV SCH (16:19)
--- NOTE | 2023-08-22 16:28 | P.HPIM ---
History of Present Illness H&P Date: 08/22/23 87 year old F with PMH of atrial fibrillation, h/o brain aneurysm s/p surgery, h/o seizures, HTN, GERD, hypothyroidism presents to the ED. History of supplied by the sons who are at bedside, one of which lives with the mother. He reports that he found his mother on the floor by the side of the bed this morning around 4:20AM. She appeared extremely weak and had to be helped back into bed. Unknown if she had a syncopal episode or head trauma. She woke up this morning around 8AM. This time, able to ambulate to the bathroom with the aide of her walker, however noted to have slurred speech. In the ED, she underwent extensive evaluation. Tachycardic with HR in the 90s. CBC WBC 18.3. Coag panel within normal limits. CMP K 3.4, Cl 108, BUN 20, glu 101, T. Bili 1.5, AST 942, ALT 601, alk phos 201, alb 3.1. Amylase 169. Lipase 104. Mag 1.9. UA negative nitrite, moderate LE. EKG sinus tachycardia, first degree AV block, LBBB. CT head/C-spine left frontotemporal craniotomy flap with encephalomalacia and aneurysm clips, DJD of the C-spine. CXR no acute pathology. GB US pericystic fluid with several stones. CT AP shows edematous GB wall thickening, mural based soft tissue right lateral rectum, small-mod hiatal hernia, diverticulosis. Patient is admitted for sepsis due to cholecystitis. General: Non toxic, lethargic, appears at stated age Derm: Warm, dry Head: Atraumatic, normocephalic, symmetric Eyes: EOMI, no lid lag, anicteric sclera Mouth: No lip lesion, mucus membranes moist Cardiovascular: Irregularly irregular tachy, no murmur Lungs: Decreased BS bilateral, no rhonchi, no rales, no accessory muscle use GI: Tenderness to palpation LLQ and RUQ without rebound tenderness, soft Ext: No gross muscle atrophy, 1+ BL LE edema, no contractures Neuro: 3/5 bilateral LE strength, 5/5 bilateral UE strength Psych: Alert, oriented, appropriate affect Based on my assessment of this patient, this patient meets a high complexity level of care. Patient has a diagnosis of sepsis due to cholecystitis which poses a threat to life or bodily function. Sepsis due to cholecystitis: As per CT AP. Status post 3L bolus, start NS at 75 cc/hr. Start Zosyn 3.375g IV TID. Telemetry monitoring. BCx. Lactic acid. Consult surgery. Transaminitis: Due to above. Acute hep panel. Hypokalemia: KCL 20 meq IV x 1. Abnormal UA: Antibiotics as above. Chronic conditions: Atrial fibrillation, h/o brain aneurysm s/p surgery, h/o seizures, HTN, GERD, hypothyroidism CODE STATUS: FULL CODE. DVT Prophylaxis: SCD. Hold Eliquis for possible surgery. GI Prophylaxis: Protonix Designated medical POA if patient is not able to make medical decisions for themselves: Carlito (son) I have reviewed the following construction consultant notes: I have reviewed the results of the following tests: As above. I have ordered the following tests: As above. I have discussed the care of this patient with the following independent historian: I have independently interpreted the following test below: EKG. I have discussed the management of this patient with the following physician: Past Medical History Past Medical History: Atrial Fibrillation, GERD/Reflux, Hyperlipidemia, Hypertension, Thyroid Disorder Additional Past Medical History / Comment(s): aneurysm History of Any Multi-Drug Resistant Organisms: None Reported Past Surgical History: Back Surgery, Bladder Surgery, Hysterectomy, Orthopedic Surgery, Tonsillectomy Additional Past Surgical History / Comment(s): brain surgery Past Anesthesia/Blood Transfusion Reactions: No Reported Reaction Past Psychological History: Anxiety, Depression, No Psychological Hx Reported Smoking Status: Never smoker Past Alcohol Use History: None Reported Past Drug Use History: None Reported - Past Family History Brother(s) Additional Family Medical History / Comment(s): pt. had a twin brother who was born with a bad heart valve Medications and Allergies Home Medications Medication Instructions Recorded Confirmed Type oxyBUTYnin chloride [Ditropan XL] 5 mg PO HS 12/14/13 08/22/23 History Levothyroxine Sodium [Synthroid] 50 mcg PO AC-BRKFST 09/14/17 08/22/23 History OXcarbazepine [Trileptal] 300 mg PO BID 09/14/17 08/22/23 History Ubidecarenone [Co Q-10] 100 mg PO DAILY@1200 09/14/17 08/22/23 History amLODIPine [Norvasc] 5 mg PO DAILY 09/14/17 08/22/23 History Cholecalciferol [Vitamin D3 (25 25 mcg PO DAILY@119907/27/19 08/22/23 History Mcg = 1000 Iu)] Famotidine [Pepcid] 20 mg PO BID 07/27/19 08/22/23 History Omeprazole 40 mg PO HS 07/27/19 08/22/23 History Vit C/E/Zn/Coppr/Lutein/Zeaxan 1 cap PO HS 07/27/19 08/22/23 History [Preservision Areds 2 Softgel] Krill Oil 500 mg PO DAILY@119908/10/20 08/22/23 History Metoprolol Tartrate [Lopressor] 12.5 mg PO DAILY 08/10/20 08/22/23 History Apixaban [Eliquis] 2.5 mg PO BID 08/22/23 08/22/23 History Ascorbic Acid [Vitamin C] 500 mg PO DAILY@119908/22/23 08/22/23 History L.acidoph,Paracasei, B.lactis 1 cap PO DAILY 08/22/23 08/22/23 History [Probiotic] Losartan Potassium 100 mg PO DAILY@119908/22/23 08/22/23 History Mv-Min/FA/Vit K/Lutein/Zeaxant 1 cap PO DAILY@1200 08/22/23 08/22/23 History [Preservision Areds 2 Plus Mv] Triamcinolone 0.1% Cream [Kenalog 1 applic TOPICAL BID PRN 08/22/23 08/22/23 History 0.1% Cream] Allergies Allergy/AdvReac Type Severity Reaction Status Date / Time No Known Allergies Allergy Verified 08/22/23 14:02 Physical Exam Vitals: Vital Signs Temp Pulse Resp BP Pulse Ox 08/22/23 12:13 85 14 121/66 95 08/22/23 09:17 97.4 F L 96 20 127/67 95 Intake and Output 08/22/23 08/22/23 08/22/23 06:59 14:59 22:59 Other: Weight 54.431 kg Results CBC & Chem 7: 08/22/23 09:42 08/22/23 09:42 Labs: Abnormal Lab Results - Last 24 Hours (Table) 08/22/23 08/22/23 08/22/23 Range/Units 09:42 09:42 09:42 WBC 18.3 H (3.8-10.6) k/uL Neutrophils # (Manual) 17.00 H (1.3-7.7) k/uL Lymphocytes # (Manual) 0.55 L (1.0-4.8) k/uL Monocytes # (Manual) 1.10 H (0-1.0) k/uL Potassium 3.4 L (3.5-5.1) mmol/L Chloride 108 H (98-107) mmol/L BUN 20 H (7-17) mg/dL Glucose 101 H (74-99) mg/dL Plasma Lactic Acid Garrett (0.7-2.0) mmol/L Total Bilirubin 1.5 H (0.2-1.3) mg/dL AST 942 H (14-36) U/L ALT 601 H (4-34) U/L Alkaline Phosphatase 201 H (38-126) U/L Total Protein 5.6 L (6.3-8.2) g/dL Albumin 3.1 L (3.5-5.0) g/dL Amylase (30-110) U/L Urine Appearance Cloudy H (Clear) Urine Protein Trace H (Negative) Ur Leukocyte Esterase Moderate H (Negative) Urine WBC 30 H (0-5) /hpf Urine Bacteria Occasional H (None) /hpf Hyaline Casts 3 H (0-2) /lpf Urine Mucus Rare H (None) /hpf 08/22/23 08/22/23 Range/Units 09:42 12:08 WBC (3.8-10.6) k/uL Neutrophils # (Manual) (1.3-7.7) k/uL Lymphocytes # (Manual) (1.0-4.8) k/uL Monocytes # (Manual) (0-1.0) k/uL Potassium (3.5-5.1) mmol/L Chloride (98-107) mmol/L BUN (7-17) mg/dL Glucose (74-99) mg/dL Plasma Lactic Acid Garrett 4.1 H* (0.7-2.0) mmol/L Total Bilirubin (0.2-1.3) mg/dL AST (14-36) U/L ALT (4-34) U/L Alkaline Phosphatase (38-126) U/L Total Protein (6.3-8.2) g/dL Albumin (3.5-5.0) g/dL Amylase 169 H (30-110) U/L Urine Appearance (Clear) Urine Protein (Negative) Ur Leukocyte Esterase (Negative) Urine WBC (0-5) /hpf Urine Bacteria (None) /hpf Hyaline Casts (0-2) /lpf Urine Mucus (None) /hpf
[2023-08-22] MEDS ORDERED: APIXABAN 2.5 MG TABLET PO SCH (21:00)
[2023-08-22] MEDS: SODIUM CHLORIDE 0.9% 250 ML IV STA (21:21)
[2023-08-22] MEDS: POTASSIUM CHLORIDE 10 MEQ in WATER FOR INJECTION 1 100ML.BAG IVPB SCH (21:21)
[2023-08-22] MEDS: OXcarbazepine 300 MG TAB PO SCH (21:21)
[2023-08-22] MEDS: PIPERACILLIN-TAZOBACTAM 3.375 GM in SODIUM CHLORIDE 0.9% 100 ML IVPB SCH (22:47)
[2023-08-23 03:20] LABS: Hepatitis A Antibody IgM Nonreactive; Hepatitis B Core IgM Nonreactive; Hepatitis B Surface Antigen Nonreactive; Hepatitis C IgG Antibody Nonreactive
[2023-08-23] MEDS: POTASSIUM CHLORIDE 10 MEQ in WATER FOR INJECTION 1 100ML.BAG IVPB SCH (03:21)
[2023-08-23] MEDS: LEVOTHYROXINE 50 MCG TAB PO SCH (06:00)
[2023-08-23] MEDS: amLODIPine 5 MG TAB PO SCH (08:30)
[2023-08-23] MEDS: PANTOPRAZOLE 40 MG/10 ML VIAL IV SCH (08:30)
[2023-08-23] MEDS: METOPROLOL TARTRATE 12.5 MG TAB PO SCH (08:30)
[2023-08-23 09:41] LABS: Basophils # (A) 0.09 X 10*3/uL (0.00-0.10); Basophils % (A) 0.4 %; Eosinophils # (A) 0.29 X 10*3/uL (0.04-0.35); Eosinophils % (A) 1.4 %; HCT 36.3 % (37.2-46.3); HGB 12.1 g/dL (12.0-15.0); Lymphocytes # (A) 0.76 X 10*3/uL (0.90-5.00); Lymphocytes % (A) 3.7 %; MCH 30.8 pg (27.0-32.0); MCHC 33.3 g/dL (32.0-37.0); MCV 92.4 FL (80.0-97.0); Mean Platelet Volume 9.9 FL (9.5-12.2); Monocytes # (A) 1.28 X 10*3/uL (0.20-1.00); Monocytes % (A) 6.2 %; NRBC Per 100 WBC 0 X 10*3/uL (0.00-0.01); Neutrophils # (A) 18.04 X 10*3/uL (1.80-7.70); Neutrophils % (A) 86.7 %; Platelet Count 183 X 10*3/uL (140-440); RBC 3.93 X 10*6/uL (4.10-5.20); RDW 15.1 % (11.5-14.5)
[2023-08-23 09:55] LABS: ALT 368 U/L (8-44); AST 277 U/L (13-35); Albumin 2.8 g/dL (3.8-4.9); Albumin/Globulin Ratio 1.56 Ratio (1.60-3.17); Alkaline Phosphatase 176 U/L (41-126); BUN/Creat Ratio 16.12 Ratio (12.00-20.00); Blood Urea Nitrogen 12.9 mg/dL (9.0-27.0); Calcium 8.3 mg/dL (8.7-10.3); Carbon Dioxide 20.3 mmol/L (21.6-31.8); Chloride 108 mmol/L (96-109); Globulin 1.8 g/dL (1.6-3.3); Glucose 71 mg/dL (70-110); Potassium 3.7 mmol/L (3.5-5.5); Sodium 139 mmol/L (135-145); Total Bilirubin 1.4 mg/dL (0.3-1.2); Total Protein 4.6 g/dL (6.2-8.2)
--- NOTE | 2023-08-23 12:45 | P.GSCN ---
History of Present Illness Consult date: 08/23/23 Reason for Consult: Rule out acute cholecystitis History of present illness: Patient is a 87 year old female with a PMH of dementia who presents with worsening AMS and weakness. Per son who provides history at bedside patient was found down in the bathroom the day prior to presentation. No N/V. No F/C. No diarrhea. He states that patient has had a history of recurrent UTI in the past but did not appreciate any hematuria. No recent travel or sick contacts. He states that she has had a similar episode such as this in the past which was att ributed to UTI. No recent abdominal operation. He endorses a history of afib currently on eliquis therapy. Prior cerebral intervention for aneurysm. Upon presentation to [facility] a CT A/P was obtained showing gallbladder wall thickening concerning for acute cholecystitis. RUQ US obtained confirmed evidence of gallbladder wall thickening. General Surgery is consulted for further evaluation. Review of Systems Negative except for as stated above Past Medical History Past Medical History: Atrial Fibrillation, GERD/Reflux, Hyperlipidemia, Hypertension, Thyroid Disorder Additional Past Medical History / Comment(s): aneurysm History of Any Multi-Drug Resistant Organisms: None Reported Past Surgical History: Back Surgery, Bladder Surgery, Hysterectomy, Orthopedic Surgery, Tonsillectomy Additional Past Surgical History / Comment(s): brain surgery Past Anesthesia/Blood Transfusion Reactions: No Reported Reaction Past Psychological History: Anxiety, Depression, No Psychological Hx Reported Additional Psychological History / Comment(s): Short Term Memory Loss Smoking Status: Never smoker Past Alcohol Use History: None Reported Past Drug Use History: None Reported - Past Family History Brother(s) Additional Family Medical History / Comment(s): pt. had a twin brother who was born with a bad heart valve Medications and Allergies Home Medications Medication Instructions Recorded Confirmed Type oxyBUTYnin chloride [Ditropan XL] 5 mg PO HS 12/14/13 08/22/23 History Levothyroxine Sodium [Synthroid] 50 mcg PO AC-BRKFST 09/14/17 08/22/23 History OXcarbazepine [Trileptal] 300 mg PO BID 09/14/17 08/22/23 History Ubidecarenone [Co Q-10] 100 mg PO DAILY@1200 09/14/17 08/22/23 History amLODIPine [Norvasc] 5 mg PO DAILY 09/14/17 08/22/23 History Cholecalciferol [Vitamin D3 (25 25 mcg PO DAILY@1200 07/27/19 08/22/23 History Mcg = 1000 Iu)] Famotidine [Pepcid] 20 mg PO BID 07/27/19 08/22/23 History Omeprazole 40 mg PO HS 07/27/19 08/22/23 History Vit C/E/Zn/Coppr/Lutein/Zeaxan 1 cap PO HS 07/27/19 08/22/23 History [Preservision Areds 2 Softgel] Krill Oil 500 mg PO DAILY@1200 08/10/20 08/22/23 History Metoprolol Tartrate [Lopressor] 12.5 mg PO DAILY 08/10/20 08/22/23 History Apixaban [Eliquis] 2.5 mg PO BID 08/22/23 08/22/23 History Ascorbic Acid [Vitamin C] 500 mg PO DAILY@1200 08/22/23 08/22/23 History L.acidoph,Paracasei, B.lactis 1 cap PO DAILY 08/22/23 08/22/23 History [Probiotic] Losartan Potassium 100 mg PO DAILY@1200 08/22/23 08/22/23 History Mv-Min/FA/Vit K/Lutein/Zeaxant 1 cap PO DAILY@1200 08/22/23 08/22/23 History [Preservision Areds 2 Plus Mv] Triamcinolone 0.1% Cream [Kenalog 1 applic TOPICAL BID PRN 08/22/23 08/22/23 History 0.1% Cream] Allergies Allergy/AdvReac Type Severity Reaction Status Date / Time No Known Allergies Allergy Verified 08/22/23 14:02 Surgical - Exam Vital Signs Temp Pulse Resp BP Pulse Ox 97.4 F L 96 20 127/67 95 08/22/23 09:17 08/22/23 09:17 08/22/23 09:17 08/22/23 09:17 08/22/23 09:17 Gen: AxO x2, NAD Pulm: non-labored respirations Abd: soft, tender to palpation in RLQ and RUQ. Non-distended. No guarding/rebound/rigidity. Alfredo's sign negative Extrem: no edema seen Results - Labs 08/23/23 06:31 08/23/23 06:31 Abnormal Lab Results - Last 24 Hours (Table) 08/22/23 08/23/23 08/23/23 Range/Units 12:08 06:31 06:31 WBC 20.80 H (4.50-10.00) X 10*3/uL RBC 3.93 L (4.10-5.20) X 10*6/uL Hct 36.3 L (37.2-46.3) % RDW 15.1 H (11.5-14.5) % Immature Gran # 0.34 H (0.00-0.04) X 10*3/uL Neutrophils # 18.04 H (1.80-7.70) X 10*3/uL Lymphocytes # 0.76 L (0.90-5.00) X 10*3/uL Monocytes # 1.28 H (0.20-1.00) X 10*3/uL Carbon Dioxide 20.3 L (21.6-31.8) mmol/L Calcium 8.3 L (8.7-10.3) mg/dL Total Bilirubin 1.4 H (0.3-1.2) mg/dL AST 277 H (13-35) U/L ALT 368 H (8-44) U/L Alkaline Phosphatase 176 H (41-126) U/L Total Protein 4.6 L (6.2-8.2) g/dL Albumin 2.8 L (3.8-4.9) g/dL Albumin/Globulin Ratio 1.56 L (1.60-3.17) Ratio Amylase 169 H (30-110) U/L Diabetes panel 08/23/23 Range/Units 06:31 Sodium 139 (135-145) mmol/L Potassium 3.7 (3.5-5.5) mmol/L Chloride 108 (96-109) mmol/L Carbon Dioxide 20.3 L (21.6-31.8) mmol/L BUN 12.9 (9.0-27.0) mg/dL Creatinine 0.8 (0.6-1.5) mg/dL Glucose 71 (70-110) mg/dL Calcium 8.3 L (8.7-10.3) mg/dL AST 277 H (13-35) U/L ALT 368 H (8-44) U/L Alkaline Phosphatase 176 H (41-126) U/L Total Protein 4.6 L (6.2-8.2) g/dL Albumin 2.8 L (3.8-4.9) g/dL Calcium panel 08/23/23 Range/Units 06:31 Calcium 8.3 L (8.7-10.3) mg/dL Albumin 2.8 L (3.8-4.9) g/dL Pituitary panel 08/23/23 Range/Units 06:31 Sodium 139 (135-145) mmol/L Potassium 3.7 (3.5-5.5) mmol/L Chloride 108 (96-109) mmol/L Carbon Dioxide 20.3 L (21.6-31.8) mmol/L BUN 12.9 (9.0-27.0) mg/dL Creatinine 0.8 (0.6-1.5) mg/dL Glucose 71 (70-110) mg/dL Calcium 8.3 L (8.7-10.3) mg/dL Adrenal panel 08/23/23 Range/Units 06:31 Sodium 139 (135-145) mmol/L Potassium 3.7 (3.5-5.5) mmol/L Chloride 108 (96-109) mmol/L Carbon Dioxide 20.3 L (21.6-31.8) mmol/L BUN 12.9 (9.0-27.0) mg/dL Creatinine 0.8 (0.6-1.5) mg/dL Glucose 71 (70-110) mg/dL Calcium 8.3 L (8.7-10.3) mg/dL Total Bilirubin 1.4 H (0.3-1.2) mg/dL AST 277 H (13-35) U/L ALT 368 H (8-44) U/L Alkaline Phosphatase 176 H (41-126) U/L Total Protein 4.6 L (6.2-8.2) g/dL Albumin 2.8 L (3.8-4.9) g/dL Assessment and Plan Assessment: Patient is a 87 year old female who presents s/p being found down with AMS and CT and US evidence concerning for acute cholecystitis Plan: -NPO for HIDA scan -HIDA ordered for further evaluation of cystic duct obstruction -IV abx -IVF hydration -Care per primary -No acute surgical intervention; further recs to follow HIDA scan Alan Pordal MD General Surgery
--- NOTE | 2023-08-23 12:51 | P.PN ---
Subjective Progress Note Date: 08/23/23 87 year old F with PMH of atrial fibrillation, h/o brain aneurysm s/p surgery, h/o seizures, HTN, GERD, hypothyroidism presents to the ED. History of supplied by the sons who are at bedside, one of which lives with the mother. He reports that he found his mother on the floor by the side of the bed this mo rning around 4:20AM. She appeared extremely weak and had to be helped back into bed. Unknown if she had a syncopal episode or head trauma. She woke up this morning around 8AM. This time, able to ambulate to the bathroom with the aide of her walker, however noted to have slurred speech. In the ED, she underwent extensive evaluation. Tachycardic with HR in the 90s. CBC WBC 18.3. Coag panel within normal limits. CMP K 3.4, Cl 108, BUN 20, glu 101, T. Bili 1.5, AST 942, ALT 601, alk phos 201, alb 3.1. Amylase 169. Lipase 104. Mag 1.9. UA negative nitrite, moderate LE. EKG sinus tachycardia, first degree AV block, LBBB. CT head/C-spine left frontotemporal craniotomy flap with encephalomalacia and aneurysm clips, DJD of the C-spine. CXR no acute pathology. GB US pericystic fluid with several stones. CT AP shows edematous GB wall thickening, mural based soft tissue right lateral rectum, small-mod hiatal hernia, diverticulosis. Patient is admitted for sepsis due to cholecystitis. 2/3 Patient was seen and examined. Much more awake. Continued on Zosyn for treatment of acute cholecystitis. CBC WBC 20.8, RBC 3.93, Hct 36.3. CMP bicarb 20.3, Ca 8.3, T. Bili 1.4, AST 277, ALT 368, alk phos 176, alb 2.8. Surgery consulted, recommends HIDA. General: Non toxic, lethargic, appears at stated age Derm: Warm, dry Head: Atraumatic, normocephalic, symmetric Eyes: EOMI, no lid lag, anicteric sclera Mouth: No lip lesion, mucus membranes moist Cardiovascular: Irregularly irregular tachy, no murmur Lungs: Decreased BS bilateral, no rhonchi, no rales, no accessory muscle use GI: Tenderness to palpation LLQ and RUQ without rebound tenderness, soft Ext: No gross muscle atrophy, 1+ BL LE edema, no contractures Neuro: 3/5 bilateral LE strength, 5/5 bilateral UE strength Psych: Alert, oriented, appropriate affect Based on my assessment of this patient, this patient meets a high complexity level of care. Patient has a diagnosis of sepsis due to cholecystitis which poses a threat to life or bodily function. Sepsis due to cholecystitis: As per CT AP. Status post 3L bolus, NS at 75 cc/hr. Zosyn 3.375g IV TID. Telemetry monitoring. BCx. Lactic acid. Consult surgery. Transaminitis: Due to above. Acute hep panel negative. HIDA scan per surgery recommendations. Abnormal UA: Antibiotics as above. Resolved: HypoK Chronic conditions: Atrial fibrillation, h/o brain aneurysm s/p surgery, h/o se izures, HTN, GERD, hypothyroidism CODE STATUS: FULL CODE. DVT Prophylaxis: SCD. Hold Eliquis for possible surgery. GI Prophylaxis: Protonix Designated medical POA if patient is not able to make medical decisions for themselves: Carlito (son) I have reviewed the following clothing consultant notes: Surgery. I have reviewed the results of the following tests: CBC, CMP, Mag. I have ordered the following tests: Agree with HIDA. I have discussed the care of this patient with the following independent histori an: Discussed with son at bedside. I have independently interpreted the following test below: I have discussed the management of this patient with the following physician: Objective - Vital Signs Vital signs: Vital Signs Temp 98.1 F 08/23/23 07:00 Pulse 63 08/23/23 07:00 Resp 16 08/23/23 07:00 BP 151/64 08/23/23 07:00 Pulse Ox 95 08/23/23 09:46 FiO2 Intake & Output 08/22/23 08/23/23 08/23/23 18:59 06:59 18:59 Intake Total 120 Output Total 100 Balance -100 120 Weight 54.431 kg 54.431 kg Intake: Oral 120 Output: Urine 100 Other: Voiding Method External Catheter External Catheter # Bowel Movements 1 - Labs CBC & Chem 7: 08/23/23 06:31 08/23/23 06:31 Labs: Abnormal Lab Results - Last 24 Hours (Table) 08/23/23 08/23/23 Range/Units 06:31 06:31 WBC 20.80 H (4.50-10.00) X 10*3/uL RBC 3.93 L (4.10-5.20) X 10*6/uL Hct 36.3 L (37.2-46.3) % RDW 15.1 H (11.5-14.5) % Immature Gran # 0.34 H (0.00-0.04) X 10*3/uL Neutrophils # 18.04 H (1.80-7.70) X 10*3/uL Lymphocytes # 0.76 L (0.90-5.00) X 10*3/uL Monocytes # 1.28 H (0.20-1.00) X 10*3/uL Carbon Dioxide 20.3 L (21.6-31.8) mmol/L Calcium 8.3 L (8.7-10.3) mg/dL Total Bilirubin 1.4 H (0.3-1.2) mg/dL AST 277 H (13-35) U/L ALT 368 H (8-44) U/L Alkaline Phosphatase 176 H (41-126) U/L Total Protein 4.6 L (6.2-8.2) g/dL Albumin 2.8 L (3.8-4.9) g/dL Albumin/Globulin Ratio 1.56 L (1.60-3.17) Ratio
[2023-08-23] MEDS: LOSARTAN 50 MG TAB PO SCH (15:01)
[2023-08-24] MEDS: PANTOPRAZOLE 40 MG TABLET PO SCH (06:09)
[2023-08-24 06:24] LABS: HCT 38.5 % (34.0-46.0); MCH 31.5 pg (25.0-35.0); MCHC 33.8 g/dL (31.0-37.0); MCV 93.3 fL (80.0-100.0); Mean Platelet Volume 7.8; Platelet Count 172 k/uL (150-450); RBC 4.13 m/uL (3.80-5.40); RDW 14.1 % (11.5-15.5)
[2023-08-24 06:26] LABS: ALT 251 U/L (4-34); AST 128 U/L (14-36); African American GFR (CKD) 87 (>60 ml/min/1.73 sqM); Albumin 2.6 g/dL (3.5-5.0); Alkaline Phosphatase 200 U/L (38-126); Anion Gap 4 mmol/L; Blood Urea Nitrogen 12 mg/dL (7-17); Calcium 8.3 mg/dL (8.4-10.2); Carbon Dioxide 21 mmol/L (22-30); Chloride 109 mmol/L (98-107); Globulin 2.5 g/dL; Glucose 78 mg/dL (74-99); Non-African American GFR(CKD) 75 (>60 ml/min/1.73 sqM); Potassium 3.1 mmol/L (3.5-5.1); Sodium 134 mmol/L (137-145); Total Bilirubin 1.1 mg/dL (0.2-1.3); Total Protein 5.1 g/dL (6.3-8.2)
[2023-08-24] MEDS: POTASSIUM CHLORIDE 10 MEQ in WATER FOR INJECTION 1 100ML.BAG IVPB SCH (08:04)
--- NOTE | 2023-08-24 09:20 | P.PN ---
Subjective Progress Note Date: 08/24/23 87 year old F with PMH of atrial fibrillation, h/o brain aneurysm s/p surgery, h/o seizures, HTN, GERD, hypothyroidism presents to the ED. History of supplied by the sons who are at bedside, one of which lives with the mother. He reports that he found his mother on the floor by the side of the bed this mo rning around 4:20AM. She appeared extremely weak and had to be helped back into bed. Unknown if she had a syncopal episode or head trauma. She woke up this morning around 8AM. This time, able to ambulate to the bathroom with the aide of her walker, however noted to have slurred speech. In the ED, she underwent extensive evaluation. Tachycardic with HR in the 90s. CBC WBC 18.3. Coag panel within normal limits. CMP K 3.4, Cl 108, BUN 20, glu 101, T. Bili 1.5, AST 942, ALT 601, alk phos 201, alb 3.1. Amylase 169. Lipase 104. Mag 1.9. UA negative nitrite, moderate LE. EKG sinus tachycardia, first degree AV block, LBBB. CT head/C-spine left frontotemporal craniotomy flap with encephalomalacia and aneurysm clips, DJD of the C-spine. CXR no acute pathology. GB US pericystic fluid with several stones. CT AP shows edematous GB wall thickening, mural based soft tissue right lateral rectum, small-mod hiatal hernia, diverticulosis. Patient is admitted for sepsis due to cholecystitis and UTI. Initially started on Zosyn for treatment of acute cholecystitis. BCx came back positive for Klebsiella oxytoca. Zosyn switched to Rocephin 2g IV QD and ID consulted. Surgery consulted, recommended HIDA scan which is to be done on Friday. 08/24 Patient was seen and examined. Much more awake. Slurred speech has resolved. Reports suprapubic discomfort. Zosyn switched to Rocephin 2g IV QD today for treatment of Klebsiella oxytoca bacteremia. Source is likely gallbladder or urinary. ID has been consulted. CBC WBC 14. CMP Na 134, K 3.1, Cl 109, bicarb 21, Ca 8.3, T. Bili 1.1, AST 128, ALT 251, alk phos 200. Surgery consulted, recommends HIDA which wont be done until Friday. General: Non toxic, no distress, appears at stated age Derm: Warm, dry Head: Atraumatic, normocephalic, symmetric Eyes: EOMI, no lid lag, anicteric sclera Mouth: No lip lesion, mucus membranes moist Cardiovascular: Normal S1 S2, no murmur Lungs: Decreased BS bilateral, no rhonchi, no rales, no accessory muscle use GI: Tenderness to palpation LLQ RLQ and RUQ without rebound tenderness, soft Ext: No gross muscle atrophy, 1+ BL LE edema, no contractures Neuro: 3/5 bilateral LE strength, 5/5 bilateral UE strength Psych: Alert, oriented, appropriate affect Based on my assessment of this patient, this patient meets a high complexity level of care. Patient has a diagnosis of sepsis due to bacteremia from cholecystitis or UTI which poses a threat to life or bodily function. Sepsis and gram negative bacteremia due to cholecystitis versus UTI: As per CT AP. Status post 3L bolus, NS at 50 cc/hr. Zosyn 3.375g IV TID (08/22-08/24) switched to Rocephin 2g IV QD (08/24). Telemetry monitoring. Obtain repeat BCx. Plans for HIDA on Friday. Surgery and ID on board. UTI: Antibiotics as above. Follow UCx. Hypokalemia: KCl 40 meq IV ordered today. Transaminitis: Due to above. Acute hep panel negative. HIDA scan per surgery recommendations. Resolved: HypoK Chronic conditions: Atrial fibrillation, h/o brain aneurysm s/p surgery, h/o seizures, HTN, GERD, hypothyroidism CODE STATUS: FULL CODE. DVT Prophylaxis: SCD. Holding Eliquis for possible surgery. GI Prophylaxis: Protonix Designated medical POA if patient is not able to make medical decisions for themselves: Carlito (son) I have reviewed the following brand sales consultant notes: Surgery. I have reviewed the results of the following tests: CBC, CMP. I have ordered the following tests: Agree with HIDA. CBC, CMP. I have discussed the care of this patient with the following independent historian: I have independently interpreted the following test below: I have discussed the management of this patient with the following physician: Objective - Vital Signs Vital signs: Vital Signs Temp 98.3 F 08/24/23 02:00 Pulse 64 08/24/23 02:00 Resp 16 08/24/23 02:00 BP 171/69 08/24/23 02:00 Pulse Ox 95 08/24/23 02:00 FiO2 Intake & Output 08/23/23 08/24/23 08/24/23 18:59 06:59 18:59 Intake Total 360 Output Total 300 1200 Balance 60 -1200 Intake: Oral 360 Output: Urine 300 1200 Other: Voiding Method External Catheter External Catheter # Voids 4 1 # Bowel Movements 2 1 - Labs CBC & Chem 7: 08/24/23 05:53 08/24/23 05:53 Labs: Abnormal Lab Results - Last 24 Hours (Table) 08/23/23 08/23/23 08/24/23 Range/Units 06:31 06:31 05:53 WBC 20.80 H 14.0 H (4.50-10.00) X 10*3/uL RBC 3.93 L (4.10-5.20) X 10*6/uL Hct 36.3 L (37.2-46.3) % RDW 15.1 H (11.5-14.5) % Immature Gran # 0.34 H (0.00-0.04) X 10*3/uL Neutrophils # 18.04 H (1.80-7.70) X 10*3/uL Lymphocytes # 0.76 L (0.90-5.00) X 10*3/uL Monocytes # 1.28 H (0.20-1.00) X 10*3/uL Sodium (137-145) mmol/L Potassium (3.5-5.1) mmol/L Chloride (98-107) mmol/L Carbon Dioxide 20.3 L (21.6-31.8) mmol/L Calcium 8.3 L (8.7-10.3) mg/dL Total Bilirubin 1.4 H (0.3-1.2) mg/dL AST 277 H (13-35) U/L ALT 368 H (8-44) U/L Alkaline Phosphatase 176 H (41-126) U/L Total Protein 4.6 L (6.2-8.2) g/dL Albumin 2.8 L (3.8-4.9) g/dL Albumin/Globulin Ratio 1.56 L (1.60-3.17) Ratio 08/24/23 Range/Units 05:53 WBC (4.50-10.00) X 10*3/uL RBC (4.10-5.20) X 10*6/uL Hct (37.2-46.3) % RDW (11.5-14.5) % Immature Gran # (0.00-0.04) X 10*3/uL Neutrophils # (1.80-7.70) X 10*3/uL Lymphocytes # (0.90-5.00) X 10*3/uL Monocytes # (0.20-1.00) X 10*3/uL Sodium 134 L (137-145) mmol/L Potassium 3.1 L (3.5-5.1) mmol/L Chloride 109 H (98-107) mmol/L Carbon Dioxide 21 L (21.6-31.8) mmol/L Calcium 8.3 L (8.7-10.3) mg/dL Total Bilirubin (0.3-1.2) mg/dL AST 128 H (13-35) U/L ALT 251 H (8-44) U/L Alkaline Phosphatase 200 H (41-126) U/L Total Protein 5.1 L (6.2-8.2) g/dL Albumin 2.6 L (3.8-4.9) g/dL Albumin/Globulin Ratio (1.60-3.17) Ratio Microbiology - Last 24 Hours (Table) 08/22/23 16:15 Blood Culture Gram Stain - Preliminary Blood 08/22/23 16:00 Blood Culture Gram Stain - Preliminary Blood
--- NOTE | 2023-08-24 10:37 | P.PN ---
Subjective Progress Note Date: 08/24/23 Principal diagnosis: Cholecystitis with suspected choledocholithiasis and cholangitis 87-year-old female presents to the hospital delirious with abdominal pain. Patient was found to have gallstones with gallbladder wall thickening as well as elevated liver enzymes. These have improved. She is more alert now. Patient lives at home with her son. She is no code. She has some degree of dementia. White blood cell count was initially elevated at 20. Improved at 14 today. She is afebrile. Blood cultures were positive for gram-negative bacilli. Objective - Vital Signs Vital signs: Vital Signs Temp 98.4 F 08/24/23 07:00 Pulse 60 08/24/23 07:00 Resp 16 08/24/23 07:00 BP 171/69 08/24/23 02:00 Pulse Ox 95 08/24/23 10:14 FiO2 Intake & Output 08/23/23 08/24/23 08/24/23 18:59 06:59 18:59 Intake Total 360 120 Output Total 300 1200 Balance 60 -1200 120 Intake: Oral 360 120 Output: Urine 300 1200 Other: Voiding Method External Catheter External Catheter # Voids 4 1 2 # Bowel Movements 2 1 1 - Exam Abdomen: Soft, minimal upper abdominal tenderness nondistended - Labs CBC & Chem 7: 08/24/23 05:53 08/24/23 05:53 Labs: Abnormal Lab Results - Last 24 Hours (Table) 08/24/23 08/24/23 Range/Units 05:53 05:53 WBC 14.0 H (3.8-10.6) k/uL Sodium 134 L (137-145) mmol/L Potassium 3.1 L (3.5-5.1) mmol/L Chloride 109 H (98-107) mmol/L Carbon Dioxide 21 L (22-30) mmol/L Calcium 8.3 L (8.4-10.2) mg/dL AST 128 H (14-36) U/L ALT 251 H (4-34) U/L Alkaline Phosphatase 200 H (38-126) U/L Total Protein 5.1 L (6.3-8.2) g/dL Albumin 2.6 L (3.5-5.0) g/dL Microbiology - Last 24 Hours (Table) 08/22/23 16:00 Blood Culture Gram Stain - Preliminary Blood Blood Culture - Preliminary Gram Neg Bacilli 08/22/23 16:15 Blood Culture Gram Stain - Preliminary Blood Blood Culture - Preliminary Gram Neg Bacilli Assessment and Plan (1) Choledocholithiasis with acute cholecystitis Narrative/Plan: 87-year-old f female with suspected cholangitis secondary to choledocholithiasis with acute cholecystitis. Clinical scenario discussed in detail with the patient and primarily her [id number] who was present at the bedside. She has no code. Options of MRCP discussed. Patient has history of significant back surgery with cage placement. Patient would like to avoid MRI if possible. I think it is reasonable to repeat labs tomorrow morning. If liver enzymes continue to decrease patient would be a candidate to proceed directly with laparoscopic cholecystectomy, possible open. Alternative option would be observation and discharge given the patient is no CODE STATUS and comorbidities. Risk of recurrent episodes of choledocholithiasis reviewed. Family plans to discuss this further amongst himself today. Will make arrangements for tomorrow in case we decide to proceed. Current Visit: Yes Status: Acute Code(s): K80.42 - CALCULUS OF BILE DUCT W ACUTE CHOLECYSTITIS W/O OBSTRUCTION SNOMED Code(s): 79203779 (2) Cholangitis Current Visit: Yes Status: Acute Code(s): K83.09 - OTHER CHOLANGITIS SNOMED Code(s): 04631570
--- NOTE | 2023-08-24 23:21 | P.CONS ---
History of Present Illness - Reason for Consult Consult date: 08/24/23 Bacteremia Requesting physician: Carmen Paz - Chief Complaint Weakness and not feeling well x 2 days - History of Present Illness Patient is a 87-year-old female with a past medical history significant for hypertension hyperlipidemia reflux atrial fibrillation and aneurysm patient was brought into the hospital 2 days ago for evaluation of feeling and apparently the patient fell out of the bed the night before the patient was brought to the hospital no clear history of any injury or hitting her head and no loss of consciousness patient had been feeling fatigued and drowsy in the morning of presentation to the hospital no history of any headache or URI symptoms no chest pain shortness of breath or cough some nausea but no vomiting some vague abdominal pain no diarrhea or urinary symptoms patient on presentation to the hospital was afebrile and no fever has been recorded subsequently patient was not tachycardic hypotensive did have mild hypoxemia requiring supplemental oxygen patient did have a white count of 18.3 with a left shift and evidence of mildly elevated creatinine was normal urine is positive hepatitis panel negative patient did have a chest x-ray no evidence for acute pulmonary disease patient did have a CT abdominal pelvis edematous gallbladder wall thickening with suggestion of small calculi unable to exclude acute cholecystitis patient did have blood cultures done which came back positive with gram-negative bacilli prompting this infectious disease consultation patient was Zosyn that has been transitioned to Rocephin 2 g daily on the basis of the fact blood culture positive for Klebsiella with no resistant gene most information has been extracted from review the chart and talking to the son at the bedside Review of Systems Positive point and negatives has been mentioned in the HPI, complete review of systems was performed and all other systems are negative Past Medical History Past Medical History: Atrial Fibrillation, GERD/Reflux, Hyperlipidemia, Hypertension, Thyroid Disorder Additional Past Medical History / Comment(s): aneurysm History of Any Multi-Drug Resistant Organisms: None Reported Past Surgical History: Back Surgery, Bladder Surgery, Hysterectomy, Orthopedic Surgery, Tonsillectomy Additional Past Surgical History / Comment(s): brain surgery Past Anesthesia/Blood Transfusion Reactions: No Reported Reaction Past Psychological History: Anxiety, Depression, No Psychological Hx Reported Additional Psychological History / Comment(s): Short Term Memory Loss Smoking Status: Never smoker Past Alcohol Use History: None Reported Past Drug Use History: None Reported - Past Family History Brother(s) Additional Family Medical History / Comment(s): pt. had a twin brother who was born with a bad heart valve Medications and Allergies Home Medications Medication Instructions Recorded Confirmed Type oxyBUTYnin chloride [Ditropan XL] 5 mg PO HS 12/14/13 08/22/23 History Levothyroxine Sodium [Synthroid] 50 mcg PO AC-[id number] 09/14/17 08/22/23 History OXcarbazepine [Trileptal] 300 mg PO BID 09/14/17 08/22/23 History Ubidecarenone [Co Q-10] 100 mg PO DAILY@1200 09/14/17 08/22/23 History amLODIPine [Norvasc] 5 mg PO DAILY 09/14/17 08/22/23 History Cholecalciferol [Vitamin D3 (25 25 mcg PO DAILY@1200 07/27/19 08/22/23 History Mcg = 1000 Iu)] Famotidine [Pepcid] 20 mg PO BID 07/27/19 08/22/23 History Omeprazole 40 mg PO HS 07/27/19 08/22/23 History Vit C/E/Zn/Coppr/Lutein/Zeaxan 1 cap PO HS 07/27/19 08/22/23 History [Preservision Areds 2 Softgel] Krill Oil 500 mg PO DAILY@1200 08/10/20 08/22/23 History Metoprolol Tartrate [Lopressor] 12.5 mg PO DAILY 08/10/20 08/22/23 History Apixaban [Eliquis] 2.5 mg PO BID 08/22/23 08/22/23 History Ascorbic Acid [Vitamin C] 500 mg PO DAILY@119908/22/23 08/22/23 History L.acidoph,Paracasei, B.lactis 1 cap PO DAILY 08/22/23 08/22/23 History [Probiotic] Losartan Potassium 100 mg PO DAILY@119908/22/23 08/22/23 History Mv-Min/FA/Vit K/Lutein/Zeaxant 1 cap PO DAILY@1200 08/22/23 08/22/23 History [Preservision Areds 2 Plus Mv] Triamcinolone 0.1% Cream [Kenalog 1 applic TOPICAL BID PRN 08/22/23 08/22/23 History 0.1% Cream] Allergies Allergy/AdvReac Type Severity Reaction Status Date / Time No Known Allergies Allergy Verified 08/22/23 14:02 Physical Exam Vitals: Vital Signs Temp Pulse Resp BP Pulse Ox 08/24/23 10:50 175/61 08/24/23 10:14 95 08/24/23 07:00 98.4 F 60 16 95 08/24/23 02:00 98.3 F 64 16 171/69 95 08/23/23 19:43 98.1 F 71 16 163/70 93 L 08/23/23 15:00 97.3 F L 64 16 156/64 96 Intake and Output 08/23/23 08/24/23 08/24/23 22:59 06:59 14:59 Intake Total 120 120 Output Total 1200 Balance 120 -1200 120 Intake: Oral 120 120 Output: Urine 1200 Other: Voiding Method External Catheter External Catheter # Voids 1 2 # Bowel Movements 1 1 GENERAL DESCRIPTION: Elderly female lying in bed, no distress. No tachypnea or accessory muscle of respiration use. HEENT: Shows Pallor , no scleral icterus. Oral mucous membrane is dry. No pharyngeal erythema or thrush NECK: Trachea central, no thyromegaly. LUNGS: Unlabored breathing. Clear to auscultation anteriorly. No wheeze or crackle. HEART: S1, S2, regular rate and rhythm. No loud murmur ABDOMEN: Soft, mild distention and tenderness EXTREMITIES: No edema of feet. SKIN: No rash, no masses palpable. NEUROLOGICAL: The patient is awake, alert, oriented x3, mood and affect normal. Results CBC & Chem 7: 08/24/23 05:53 08/24/23 05:53 Labs: Abnormal Lab Results - Last 24 Hours (Table) 08/24/23 08/24/23 Range/Units 05:53 05:53 WBC 14.0 H (3.8-10.6) k/uL Sodium 134 L (137-145) mmol/L Potassium 3.1 L (3.5-5.1) mmol/L Chloride 109 H (98-107) mmol/L Carbon Dioxide 21 L (22-30) mmol/L Calcium 8.3 L (8.4-10.2) mg/dL AST 128 H (14-36) U/L ALT 251 H (4-34) U/L Alkaline Phosphatase 200 H (38-126) U/L Total Protein 5.1 L (6.3-8.2) g/dL Albumin 2.6 L (3.5-5.0) g/dL Microbiology - Last 24 Hours (Table) 08/22/23 16:00 Blood Culture Gram Stain - Preliminary Blood Blood Culture - Preliminary Gram Neg Bacilli 08/22/23 16:15 Blood Culture Gram Stain - Preliminary Blood Blood Culture - Preliminary Gram Neg Bacilli Assessment and Plan (1) Bacteremia due to Klebsiella pneumoniae Current Visit: Yes Status: Acute Code(s): R78.81 - BACTEREMIA; B96.1 - KLEBSIELLA PNEUMONIAE THE CAUSE OF DISEASES [facility] SNOMED Code(s): 269643432700 (2) Cholangitis Current Visit: Yes Status: Acute Code(s): K83.09 - OTHER CHOLANGITIS SNOMED Code(s): 88825262 (3) Choledocholithiasis with acute cholecystitis Current Visit: Yes Status: Acute Code(s): K80.42 - CALCULUS OF BILE DUCT W ACUTE CHOLECYSTITIS W/O OBSTRUCTION SNOMED Code(s): 20646201 Plan: 1-patient with Klebsiella bacteremia in this patient was in the hospital generalized weakness fatigue some week abdominal pain patient did have a t enderness to right upper quadrant area did have elevated liver enzymes and abnormal CT suspicious for cholecystitis and likely component of cholangitis with elevated liver enzymes 2-patient to continue with Rocephin 2 g daily to be the organism is sensitive will monitoring her clinical course closely 3-because of her age family seem to be slightly reluctant about the surgery and general surgery is following the patient We will follow on clinical condition and cultures to further adjust medication if needed Thank you for this consultation we will follow the patient along with you Dictation was produced using [employer] dictation software. please excuse any grammatical, word or spelling errors. Time with Patient: Greater than 30
--- NOTE | 2023-08-25 09:05 | P.PN ---
Subjective Progress Note Date: 08/25/23 87 year old F with PMH of atrial fibrillation, h/o brain aneurysm s/p surgery, h/o seizures, HTN, GERD, hypothyroidism presents to the ED. History of supplied by the sons who are at bedside, one of which lives with the mother. He reports that he found his mother on the floor by the side of the bed this mo rning around 4:20AM. She appeared extremely weak and had to be helped back into bed. Unknown if she had a syncopal episode or head trauma. She woke up this morning around 8AM. This time, able to ambulate to the bathroom with the aide of her walker, however noted to have slurred speech. In the ED, she underwent extensive evaluation. Tachycardic with HR in the 90s. CBC WBC 18.3. Coag panel within normal limits. CMP K 3.4, Cl 108, BUN 20, glu 101, T. Bili 1.5, AST 942, ALT 601, alk phos 201, alb 3.1. Amylase 169. Lipase 104. Mag 1.9. UA negative nitrite, moderate LE. EKG sinus tachycardia, first degree AV block, LBBB. CT head/C-spine left frontotemporal craniotomy flap with encephalomalacia and aneurysm clips, DJD of the C-spine. CXR no acute pathology. GB US pericystic fluid with several stones. CT AP shows edematous GB wall thickening, mural based soft tissue right lateral rectum, small-mod hiatal hernia, diverticulosis. Patient is admitted for sepsis due to cholecystitis/cholangitis and UTI. Initially started on Zosyn. BCx came back positive for Klebsiella oxytoca. Zosyn switched to Rocephin 2g IV QD and ID consulted. Surgery consulted, initially recommended HIDA scan on Friday and NPO for possible OR but family seems reluctant about surgery and would like medical management for now. 08/25 Patient was seen and examined. Much more awake. Reports suprapubic discomfort. Discussed with the son at bedside, family seems reluctant about surgery and would like medical management for now. Maintained on Rocephin 2g IV QD (D2) for treatment of Klebsiella oxytoca bacteremia. Source is likely gallbladder or urinary. ID is on board. Discussed with Indu regarding obtaining HIDA scan, will check with Dr. Marie. CBC and CMP pending this morning. General: Non toxic, no distress, appears at stated age Derm: Warm, dry Head: Atraumatic, normocephalic, symmetric Eyes: EOMI, no lid lag, anicteric sclera Mouth: No lip lesion, mucus membranes moist Cardiovascular: Normal S1 S2, no murmur Lungs: Decreased BS bilateral, no rhonchi, no rales, no accessory muscle use GI: Tenderness to palpation LLQ RLQ and RUQ without rebound tenderness, soft Ext: No gross muscle atrophy, 1+ BL LE edema, no contractures Neuro: 3/5 bilateral LE strength, 5/5 bilateral UE strength Psych: Alert, oriented, appropriate affect Based on my assessment of this patient, this patient meets a high complexity level of care. Patient has a diagnosis of sepsis due to bacteremia from cholecystitis or UTI which poses a threat to life or bodily function. Sepsis and Klebsiella bacteremia due to cholecystitis/cholangitis versus UTI: As per CT AP. Status post 3L bolus, NS at 50 cc/hr. Zosyn 3.375g IV TID (08/22-08/24) switched to Rocephin 2g IV QD (08/24). Telemetry monitoring. Obtain repeat BCx. Family reluctant for surgery would like medical management for now. Possible HIDA scan today, discussed with Indu KILN DOOR REPAIRER. Surgery and ID on board. UTI: Antibiotics as above. Follow UCx. Hypokalemia: KCl 40 meq IV 08/24. CMP this morning is pending. Transaminitis: Due to above. Acute hep panel negative. Possible HIDA scan per surgery recommendations. Chronic conditions: Atrial fibrillation, h/o brain aneurysm s/p surgery, h/o seizures, HTN, GERD, hypothyroidism CODE STATUS: NO CODE. DVT Prophylaxis: SCD. Holding Eliquis for possible surgery. GI Prophylaxis: Protonix Designated medical POA if patient is not able to make medical decisions for themselves: Carlito (son) I have reviewed the following cassandra consultant notes: Surgery. I have reviewed the results of the following tests: I have ordered the following tests: Agree with HIDA. Pending: CBC, CMP. Repeat CBC and CMP tomorrow morning. I have discussed the care of this patient with the following independent historian: I have independently interpreted the following test below: I have discussed the management of this patient with the following physician: Discussed with Indu KILN DOOR REPAIRER. Objective - Vital Signs Vital signs: Vital Signs Temp 98.0 F 08/25/23 01:52 Pulse 68 08/25/23 01:52 Resp 16 08/25/23 01:52 BP 181/79 08/25/23 01:52 Pulse Ox 92 L 08/25/23 01:52 FiO2 Intake & Output 08/24/23 08/25/23 08/25/23 18:59 06:59 18:59 Intake Total 120 Output Total 1001 1950 Balance -881 -1950 Intake: Oral 120 Output: Urine 1000 1950 Stool 1 Other: Voiding Method External Catheter External Catheter # Voids 2 # Bowel Movements 1 - Labs CBC & Chem 7: 08/24/23 05:53 08/24/23 05:53 Labs: Microbiology - Last 24 Hours (Table) 08/22/23 16:00 Blood Culture Gram Stain - Preliminary Blood Blood Culture - Preliminary Gram Neg Bacilli 08/22/23 16:15 Blood Culture Gram Stain - Preliminary Blood Blood Culture - Preliminary Gram Neg Bacilli
[2023-08-25 11:37] LABS: Basophils % (A) 0 %; Eosinophils # (A) 0.3 k/uL (0-0.7); Eosinophils % (A) 4 %; HCT 40.9 % (34.0-46.0); HGB 13.8 gm/dL (11.4-16.0); Lymphocytes # (A) 0.7 k/uL (1.0-4.8); Lymphocytes % (A) 10 %; MCH 31.1 pg (25.0-35.0); MCHC 33.8 g/dL (31.0-37.0); Mean Platelet Volume 7.6; Monocytes # (A) 0.5 k/uL (0-1.0); Monocytes % (A) 6 %; Neutrophils # (A) 5.9 k/uL (1.3-7.7); Neutrophils % (A) 76 %; Platelet Count 182 k/uL (150-450); RBC 4.44 m/uL (3.80-5.40); WBC 7.7 k/uL (3.8-10.6)
[2023-08-25 11:42] LABS: ALT 171 U/L (4-34); AST 60 U/L (14-36); African American GFR (CKD) >90 (>60 ml/min/1.73 sqM); Albumin 2.7 g/dL (3.5-5.0); Alkaline Phosphatase 228 U/L (38-126); Anion Gap 1 mmol/L; Blood Urea Nitrogen 6 mg/dL (7-17); Calcium 8.5 mg/dL (8.4-10.2); Carbon Dioxide 26 mmol/L (22-30); Chloride 108 mmol/L (98-107); Globulin 2.6 g/dL; Glucose 80 mg/dL (74-99); Non-African American GFR(CKD) 83 (>60 ml/min/1.73 sqM); Potassium 3.1 mmol/L (3.5-5.1); Sodium 135 mmol/L (137-145); Total Bilirubin 0.6 mg/dL (0.2-1.3); Total Protein 5.3 g/dL (6.3-8.2)
--- NOTE | 2023-08-25 12:44 | P.PN ---
Subjective Progress Note Date: 08/25/23 Principal diagnosis: Reason for follow-up with gram-negative bacteremia and cholangitis Patient is a 87-year-old female with a past medical history significant for hypertension hyperlipidemia reflux atrial fibrillation and aneurysm patient was brought into the hospital for not feeling well and the patient fell out of the bed patient noticed to have elevated white count CT abdominal pelvis with edematous gallbladder and the patient did have Klebsiella bacteremia. On today's evaluation that is 08/25/2023, the patient continues to be afebrile, patient is breathing comfortably on 2 L nasal cannula oxygen the patient denies chest pain shortness of breath and no significant cough, patient did have some nausea no significant abdominal pain and no diarrhea reported. Patient white count normalized to 7.7, creatinine 0.56 liver enzymes are improving Objective - Vital Signs Vital signs: Vital Signs Temp 97.9 F 08/25/23 07:00 Pulse 58 L 08/25/23 07:00 Resp 24 08/25/23 07:00 BP 161/71 08/25/23 07:00 Pulse Ox 91 L 08/25/23 07:00 FiO2 Intake & Output 08/24/23 08/25/23 08/25/23 18:59 06:59 18:59 Intake Total 120 Output Total 1001 1950 Balance -881 -1950 Intake: Oral 120 Output: Urine 1000 1950 Stool 1 Other: Voiding Method External Catheter External Catheter External Catheter # Voids 2 # Bowel Movements 1 - Exam GENERAL DESCRIPTION: An elderly female lying in bed in no distress RESPIRATORY SYSTEM: Unlabored breathing , decreased breath sounds at bases HEART: S1 S2 regular rate and rhythm , ABDOMEN: Soft , mild tenderness EXTREMITIES: No edema feet - Labs CBC & Chem 7: 08/25/23 11:02 08/25/23 11:02 Labs: Microbiology - Last 24 Hours (Table) 08/22/23 16:00 Blood Culture Gram Stain - Preliminary Blood Blood Culture - Preliminary Gram Neg Bacilli 08/22/23 16:15 Blood Culture Gram Stain - Preliminary Blood Blood Culture - Preliminary Gram Neg Bacilli Assessment and Plan (1) Bacteremia due to Klebsiella pneumoniae Current Visit: Yes Status: Acute Code(s): R78.81 - BACTEREMIA; B96.1 - KLEBSIELLA PNEUMONIAE THE CAUSE OF DISEASES [facility]SD [facility] SNOMED Code(s): 435855658018 (2) Cholangitis Current Visit: Yes Status: Acute Code(s): K83.09 - OTHER CHOLANGITIS SNOMED Code(s): 42842958 (3) Choledocholithiasis with acute cholecystitis Current Visit: Yes Status: Acute Code(s): K80.42 - CALCULUS OF BILE DUCT W ACUTE CHOLECYSTITIS W/O OBSTRUCTION SNOMED Code(s): 44865598 Plan: 1-patient with Klebsiella bacteremia in this patient was in the hospital generalized weakness fatigue some week abdominal pain patient did have a tenderness to right upper quadrant area did have elevated liver enzymes and abnormal CT suspicious for cholecystitis and likely component of cholangitis with elevated liver enzymes 2-patient family is leaning towards no surgical treatment at this point because of her age, pros and cons has been discussed with the son at the bedside 3patient white count normalized liver enzymes are trending down continue with Rocephin and will monitor clinical course closely Dictation was produced using [employer] dictation software. please excuse any grammatical, word or spelling errors. Time with Patient: Less than 30
[2023-08-25] MEDS: POTASSIUM CHLORIDE ER 20 MEQ TAB.ER PO STA (13:01)
--- NOTE | 2023-08-25 14:35 | P.PN ---
Subjective Progress Note Date: 08/25/23 CHIEF COMPLAINT: Cholecystitis with suspected choledocholithiasis and cholangitis HISTORY OF PRESENT ILLNESS: Patient sleeping comfortably. Patient's abdominal pain has shown improvement per family. Patient does have some degree of dementia. Afebrile. WBC is down from 14-7.7. LFTs continues to trend downwards. Alk phos is slightly elevated more from 200-228. Blood cultures positive for Klebsiella oxytoca PHYSICAL EXAM: VITAL SIGNS: Reviewed. GENERAL: Well-developed in no acute distress. ABDOMEN: Soft. Nondistended. ASSESSMENT: 1. Choledocholithiasis with acute cholecystitis 2. Cholangitis PLAN: -Patient initially scheduled for cholecystectomy today. Surgery cancelled for today. No need for HIDA scan. Family has declined surgery and would like to observe patient. -Continue antibiotics -ok for low fat diet Physician Transformation Coach note has been reviewed by physician. Signing provider agrees with the documented findings, assessment, and plan of care. I have personally seen and examined the patient, reviewed the SALES OUTFITTER /PAs history, exam and MDM and agree with the assessment and plan as written. Based on total visit time, I have performed more than 50% of the visit. As above: Spoke with patient and her son at length. Patient with ascending cholangitis on presentation. Options of surgery reviewed with family yesterday. They have decided to continue with supportive care and avoiding surgery unless necessary. Continue antibiotics. Monitor lab values. No need for HIDA scan. Will follow. Objective - Vital Signs Vital signs: Vital Signs Temp 97.9 F 08/25/23 07:00 Pulse 64 08/25/23 11:45 Resp 24 08/25/23 07:00 BP 164/69 08/25/23 11:45 Pulse Ox 91 L 08/25/23 07:00 FiO2 Intake & Output 08/24/23 08/25/23 08/25/23 18:59 06:59 18:59 Intake Total 120 0 Output Total 1001 1950 Balance -881 -1950 0 Intake: Oral 120 0 Output: Urine 1000 1950 Stool 1 Other: Voiding Method External Catheter External Catheter External Catheter # Voids 2 # Bowel Movements 1 1 - Labs CBC & Chem 7: 08/25/23 11:02 08/25/23 11:02 Labs: Abnormal Lab Results - Last 24 Hours (Table) 08/25/23 08/25/23 Range/Units 11:02 11:02 Lymphocytes # 0.7 L (1.0-4.8) k/uL Sodium 135 L (137-145) mmol/L Potassium 3.1 L (3.5-5.1) mmol/L Chloride 108 H (98-107) mmol/L BUN 6 L (7-17) mg/dL AST 60 H (14-36) U/L ALT 171 H (4-34) U/L Alkaline Phosphatase 228 H (38-126) U/L Total Protein 5.3 L (6.3-8.2) g/dL Albumin 2.7 L (3.5-5.0) g/dL Microbiology - Last 24 Hours (Table) 08/22/23 16:00 Blood Culture Gram Stain - Final Blood Blood Culture - Final Klebsiella oxytoca 08/22/23 16:15 Blood Culture Gram Stain - Final Blood Blood Culture - Final Klebsiella oxytoca
[2023-08-26 06:19] LABS: HCT 39.8 % (34.0-46.0); HGB 13.6 gm/dL (11.4-16.0); MCH 31.7 pg (25.0-35.0); MCHC 34.2 g/dL (31.0-37.0); MCV 92.5 fL (80.0-100.0); Mean Platelet Volume 7.4; Platelet Count 182 k/uL (150-450); RDW 13.8 % (11.5-15.5); WBC 6.8 k/uL (3.8-10.6)
[2023-08-26 06:32] LABS: ALT 139 U/L (4-34); AST 51 U/L (14-36); African American GFR (CKD) >90 (>60 ml/min/1.73 sqM); Albumin 2.7 g/dL (3.5-5.0); Alkaline Phosphatase 209 U/L (38-126); Anion Gap 3 mmol/L; Blood Urea Nitrogen 4 mg/dL (7-17); Calcium 8.5 mg/dL (8.4-10.2); Carbon Dioxide 24 mmol/L (22-30); Chloride 109 mmol/L (98-107); Globulin 2.6 g/dL; Glucose 89 mg/dL (74-99); Non-African American GFR(CKD) 86 (>60 ml/min/1.73 sqM); Potassium 3.3 mmol/L (3.5-5.1); Sodium 136 mmol/L (137-145); Total Bilirubin 0.5 mg/dL (0.2-1.3); Total Protein 5.3 g/dL (6.3-8.2)
--- NOTE | 2023-08-26 12:16 | P.PN ---
Subjective Progress Note Date: 08/26/23 Principal diagnosis: Reason for follow-up with gram-negative bacteremia and cholangitis Patient is a 87-year-old female with a past medical history significant for hypertension hyperlipidemia reflux atrial fibrillation and aneurysm patient was brought into the hospital for not feeling well and the patient fell out of the bed patient noticed to have elevated white count CT abdominal pelvis with edematous gallbladder and the patient did have Klebsiella bacteremia. On today's evaluation that is 08/26/2023, the patient remains to be afebrile, patient is currently breathing comfortably on 2 L nasal cannula oxygen, the patient is more awake and alert today, the patient denies chest pain or cough, patient denies abdominal pain, no nausea no vomiting or any diarrhea. Patient white count normal at 6.8, creatinine 0.51 liver enzymes are improving Objective - Vital Signs Vital signs: Vital Signs Temp 99.2 F 08/26/23 07:00 Pulse 61 08/26/23 09:15 Resp 19 08/26/23 07:00 BP 163/52 08/26/23 07:00 Pulse Ox 95 08/26/23 07:00 FiO2 Intake & Output 08/25/23 08/26/23 08/26/23 18:59 06:59 18:59 Intake Total 0 740 Output Total 850 400 Balance -850 -400 740 Intake: Oral 0 740 Output: Urine 850 400 Other: Voiding Method External Catheter External Catheter # Voids 0 # Bowel Movements 1 - Exam GENERAL DESCRIPTION: An elderly female lying in bed in no distress RESPIRATORY SYSTEM: Unlabored breathing , decreased breath sounds at bases HEART: S1 S2 regular rate and rhythm , ABDOMEN: Soft , mild tenderness EXTREMITIES: No edema feet - Labs CBC & Chem 7: 08/26/23 05:49 08/26/23 05:49 Labs: Abnormal Lab Results - Last 24 Hours (Table) 08/25/23 08/25/23 08/26/23 Range/Units 11:02 11:02 05:49 Lymphocytes # 0.7 L (1.0-4.8) k/uL Sodium 135 L 136 L (137-145) mmol/L Potassium 3.1 L 3.3 L (3.5-5.1) mmol/L Chloride 108 H 109 H (98-107) mmol/L BUN 6 L 4 L (7-17) mg/dL Creatinine 0.51 L (0.52-1.04) mg/dL AST 60 H 51 H (14-36) U/L ALT 171 H 139 H (4-34) U/L Alkaline Phosphatase 228 H 209 H (38-126) U/L Total Protein 5.3 L 5.3 L (6.3-8.2) g/dL Albumin 2.7 L 2.7 L (3.5-5.0) g/dL Microbiology - Last 24 Hours (Table) 08/23/23 18:15 Urine Culture - Final Urine,Clean Catch 08/22/23 16:00 Blood Culture Gram Stain - Final Blood Blood Culture - Final Klebsiella oxytoca 08/22/23 16:15 Blood Culture Gram Stain - Final Blood Blood Culture - Final Klebsiella oxytoca Assessment and Plan (1) Bacteremia due to Klebsiella pneumoniae Current Visit: Yes Status: Acute Code(s): R78.81 - BACTEREMIA; B96.1 - KLEBSIELLA PNEUMONIAE THE CAUSE OF DISEASES CLASSD [facility] SNOMED Code(s): 758296657172 (2) Cholangitis Current Visit: Yes Status: Acute Code(s): K83.09 - OTHER CHOLANGITIS SNOMED Code(s): 50095793 (3) Choledocholithiasis with acute cholecystitis Current Visit: Yes Status: Acute Code(s): K80.42 - CALCULUS OF BILE DUCT W ACUTE CHOLECYSTITIS W/O OBSTRUCTION SNOMED Code(s): 50315441 Plan: 1-patient with Klebsiella bacteremia in this patient was in the hospital generalized weakness fatigue some week abdominal pain patient did have a tenderness to right upper quadrant area did have elevated liver enzymes and abnormal CT suspicious for cholecystitis and likely component of cholangitis with elevated liver enzymes 2-patient family is leaning towards no surgical treatment at this point because of her age, pros and cons has been discussed with the son at the bedside on 08/25/2023 3patient white count normalized liver enzymes are trending down and the patient seemed to show some clinical improvement as well 4-patient will continue with Rocephin and and transition to oral antibiotics on discharge Daughter at the bedside questions answered Dictation was produced using [email or web address] dictation software. please excuse any grammatical, word or spelling errors. Time with Patient: Less than 30
--- NOTE | 2023-08-26 15:38 | P.PN ---
Subjective Progress Note Date: 08/26/23 Hospital course: Patient is a very pleasant 87-year-old female with a past medical history of brain aneurysm status postrepair, atrial fibrillation on anticoagulation with Eliquis, hypertension, hypothyroidism, and GERD. She presented to the emergency department on 08/22/2023 with a chief complaint of weakness. Patient reportedly had a fall out of bed the night prior requiring assistance to get back into bed, she denies having any injuries during this fall but came to the emergency department for evaluation secondary to feeling fatigued and very drowsy. She underwent full evaluation in the emergency department. Vital signs upon arrival show blood pressure 127/67, heart rate 96, respiratory rate 20, temp 97.4 F, and SpO2 of 95% on 2 L. EKG was completed showing sinus tachycardia at 100 bpm with a first-degree AV block with ID interval of 255 ms and a left bundle branch block. Patient has previously known left bundle branch block confirmed upon c omparing EKG completed 08/07/2019. CT head completed showing redemonstrated left frontotemporal craniotomy flap with underlying large area of encephalomalacia in the left middle cranial fossa and previous aneurysm clips at the left MCA bifurcation region along with similar mild to moderate generalized atrophy, secondary mild ventriculomegaly also unchanged,. CT cervical spine showing moderate to advanced spondylitic changes of cervical spine but negative for acute fracture or subluxation. Chest x-ray negative for acute cardiopulmonary process. Labs were completed. CBC showing leukocytosis with WBC count of 18.3, neutrophils at 17.00, lymphocytes 0.55, and monocytes 1.10. BMP showing hyp okalemia with potassium of 3.4 and prerenal azotemia with BUN of 20. Glucose was 101. Lactic acid elevated at 4.1. Magnesium 1.9. Liver profile showing acute transaminitis with total bili of 1.5, AST of 942, ALT of 601, and alkaline phosphatase of 201. Troponin was 0.031. Amylase was slightly high at 169 with a normal lipase 104. Urinalysis was positive for leukocyte esterase but not concerning for infection. Gallbladder ultrasound then completed showing evidence of cholelithiasis. CT abdomen and pelvis with contrast showing addended with gallbladder wall thickening with suggestion of layering gravel/small calculi and possible mural based soft tissue along the right lateral wall of the rectum, small to moderate size hiatal hernia, and left-sided colonic diverticulosis. Patient was admitted under our services for sepsis secondary to choledocholithiasis with acute cholecystitis. Consult was placed to general surgery. Patient was started on IV antibiotics with Rocephin 2 g daily. Blood cultures resulting positive for Klebsiella oxytoca. Urine culture negative. Physical exam: Patient seen and fully evaluated at bedside this morning. She was resting comfortably and currently denies having any complaints or needs. Patient's fam gloria at bedside reports patient actually ate a good breakfast this morning and tolerated well. Vital signs reviewed and stable. General: Nontoxic, no distress and appears stated age. Derm: Skin warm and dry, normal coloration for ethnicity. Head: Atraumatic, normocephalic and symmetric. Eyes: EOMs intact, no lid lag, and anicteric sclera Mouth: no lip lesions, mucus membranes moist Cardiovascular: regular rate and rhythm with normal S1S2, systolic murmur, positive posterior tibial pulses bilaterally, and cap refill < 2 seconds. Lungs: Respirations even, regular, and unlabored on room air. Lungs CTA bilaterally, no rhonchi, no rales, no wheezing, and no accessory muscle usage. Abdominal: soft, nontender to palpation, no guarding, no appreciable organomegaly Ext: ROM intact. No gross muscle atrophy, no edema, no contractures Neuro: Speech clear, face symmetrical and CN II-XII grossly intact with no noted focal neuro deficits Psych: Alert and oriented to person, place, time, and situation. Appropriate and pleasant affect. Assessment and Plan of Care: Klebsiella oxytoca bacteremia Choledocholithiasis with acute cholecystitis and cholangitis Acute transaminitis secondary to above Hyperbilirubinemia, secondary to above. Resolved. Sepsis secondary to above -Continue IV antibiotics with Rocephin 2 g daily. -Infectious disease following, reviewed documentation in chart. -General surgery following recommending cholecystectomy, currently family declining surgery and would like to monitor patient. Per general surgery patient restarted on Eliquis today. -Symptomatic care -Close monitoring of liver profile with repeat morning CMP. -Follow-up on repeat blood culture results. Hypokalemia Potassium 3.3 orders placed for K-Dur 40 mEq p.o. x 1 dose. Will follow-up on morning labs to review BMP to monitor for resolution/improvement and place add itional orders as indicated based upon these findings. History of brain aneurysm status craniotomy with postrepair -Continue oxcarbazepine 300 mg twice daily. Paroxysmal atrial fibrillation After clearance by general surgeon, patient to resume Eliquis 2.5 mg twice daily and patient to continue metoprolol 12.5 mg daily. Hypertension Patient to continue daily medication regimen with amlodipine 5 mg daily, losartan 100 mg daily, and metoprolol 12.5 mg daily. Hypothyroidism Patient to continue with levothyroxine 50 mcg daily. Data and imaging reviewed: No new imaging for review at this time. Morning labs reviewed. CBC unremarkable showing complete resolution of previous leukocytosis with WBC count of 6.8. BMP revealing hypokalemia with potassium of 3.3. Magnesium normal findings at 1.8. Liver profile showing resolution of hyperbilirubinemia with total bili of 0.5 but persistent but improving transaminitis with AST 51, ALT of 139, and alkaline phosphatase of 209. Vital signs reviewed. Blood pressure 163/52, heart rate 53, respiratory rate 1 9, temp 99.2 F, and SpO2 of 95% on 2 L. CODE STATUS: DNR/DNI DVT prophylaxis: Eliquis Anticipated discharge date: Clinical course to determine Anticipated discharge place: Clinical course to determine Patient was seen independently by Nurse Pracitioner. This document was prepared using [employer] dictation software. Please allow for errors in [employer], while rare they do occur. Sean Torres NP rendered care for this patient independently, reviewed the findings and plan as documented in the note above. I did not physically speak with or examine the patient on this date. Objective - Vital Signs Vital signs: Vital Signs Temp 99.2 F 08/26/23 07:00 Pulse 61 08/26/23 09:15 Resp 19 08/26/23 07:00 BP 163/52 08/26/23 07:00 Pulse Ox 95 08/26/23 07:00 FiO2 Intake & Output 08/25/23 08/26/23 08/26/23 18:59 06:59 18:59 Intake Total 0 Output Total 850 400 Balance -850 -400 Intake: Oral 0 Output: Urine 850 400 Other: Voiding Method External Catheter External Catheter # Voids 0 # Bowel Movements 1 - Labs CBC & Chem 7: 08/27/23 06:06 08/27/23 06:06 Labs: Abnormal Lab Results - Last 24 Hours (Table) 08/25/23 08/25/23 08/26/23 Range/Units 11:02 11:02 05:49 Lymphocytes # 0.7 L (1.0-4.8) k/uL Sodium 135 L 136 L (137-145) mmol/L Potassium 3.1 L 3.3 L (3.5-5.1) mmol/L Chloride 108 H 109 H (98-107) mmol/L BUN 6 L 4 L (7-17) mg/dL Creatinine 0.51 L (0.52-1.04) mg/dL AST 60 H 51 H (14-36) U/L ALT 171 H 139 H (4-34) U/L Alkaline Phosphatase 228 H 209 H (38-126) U/L Total Protein 5.3 L 5.3 L (6.3-8.2) g/dL Albumin 2.7 L 2.7 L (3.5-5.0) g/dL Microbiology - Last 24 Hours (Table) 08/23/23 18:15 Urine Culture - Final Urine,Clean Catch 08/22/23 16:00 Blood Culture Gram Stain - Final Blood Blood Culture - Final Klebsiella oxytoca 08/22/23 16:15 Blood Culture Gram Stain - Final Blood Blood Culture - Final Klebsiella oxytoca
[2023-08-26] MEDS: POTASSIUM CHLORIDE ER 20 MEQ TAB.ER PO STA (15:48)
--- NOTE | 2023-08-26 16:27 | P.PN ---
Subjective Progress Note Date: 08/26/23 CHIEF COMPLAINT: Cholecystitis with suspected choledocholithiasis and cholangitis HISTORY OF PRESENT ILLNESS: Patient sitting up in bed. She tolerated her breakfast this morning. Denies any nausea or vomiting. No abdominal pain. Afebrile. WBC 6.8 Hgb 13.6 sodium 136 potassium 3.3 LFTs trending down blood cultures positive for Klebsiella oxytoca PHYSICAL EXAM: VITAL SIGNS: Reviewed. GENERAL: Well-developed in no acute distress. ABDOMEN: Soft. Nondistended. Nontender ASSESSMENT: 1. Choledocholithiasis with acute cholecystitis 2. Cholangitis 3. Bacteremia PLAN: -No surgical intervention planned -Patient can be discharged from surgical standpoint. Recommend antibiotics at discharge -Okay to resume Eliquis -Potassium being replaced Physician Watch Electrician note has been reviewed by physician. Signing provider agrees with the documented findings, assessment, and plan of care. I have personally seen and examined the patient, reviewed the MIXOLOGIST /PAs history, exam and MDM and agree with the assessment and plan as written. Based on total visit time, I have performed more than 50% of the visit. As above: Patient doing well today. Denies abdominal pain. Labs improved. No surgical plans at this time. Will sign off. Please call if needed. Objective - Vital Signs Vital signs: Vital Signs Temp 99.2 F 08/26/23 07:00 Pulse 61 08/26/23 09:15 Resp 19 08/26/23 07:00 BP 163/52 08/26/23 07:00 Pulse Ox 95 08/26/23 07:00 FiO2 Intake & Output 08/25/23 08/26/23 08/26/23 18:59 06:59 18:59 Intake Total 0 740 Output Total 850 400 Balance -850 -400 740 Intake: Oral 0 740 Output: Urine 850 400 Other: Voiding Method External Catheter External Catheter External Catheter # Voids 0 # Bowel Movements 1 - Labs CBC & Chem 7: 08/26/23 05:49 08/26/23 05:49 Labs: Abnormal Lab Results - Last 24 Hours (Table) 08/26/23 Range/Units 05:49 Sodium 136 L (137-145) mmol/L Potassium 3.3 L (3.5-5.1) mmol/L Chloride 109 H (98-107) mmol/L BUN 4 L (7-17) mg/dL Creatinine 0.51 L (0.52-1.04) mg/dL AST 51 H (14-36) U/L ALT 139 H (4-34) U/L Alkaline Phosphatase 209 H (38-126) U/L Total Protein 5.3 L (6.3-8.2) g/dL Albumin 2.7 L (3.5-5.0) g/dL Microbiology - Last 24 Hours (Table) 08/23/23 18:15 Urine Culture - Final Urine,Clean Catch 08/22/23 16:00 Blood Culture Gram Stain - Final Blood Blood Culture - Final Klebsiella oxytoca 08/22/23 16:15 Blood Culture Gram Stain - Final Blood Blood Culture - Final Klebsiella oxytoca
[2023-08-26] MEDS: APIXABAN 2.5 MG TABLET PO SCH (20:20)
[2023-08-27 08:48] LABS: HCT 38.9 % (37.2-46.3); MCH 30.4 pg (27.0-32.0); MCHC 33.4 g/dL (32.0-37.0); MCV 90.9 FL (80.0-97.0); Mean Platelet Volume 9.8 FL (9.5-12.2); NRBC Per 100 WBC 0 X 10*3/uL (0.00-0.01); Platelet Count 196 X 10*3/uL (140-440); RBC 4.28 X 10*6/uL (4.10-5.20); RDW 14.6 % (11.5-14.5); WBC 7.86 X 10*3/uL (4.50-10.00)
[2023-08-27 09:22] LABS: ALT 118 U/L (8-44); AST 45 U/L (13-35); Albumin/Globulin Ratio 1.43 Ratio (1.60-3.17); Alkaline Phosphatase 174 U/L (41-126); BUN/Creat Ratio 9.17 Ratio (12.00-20.00); Blood Urea Nitrogen 5.5 mg/dL (9.0-27.0); Calcium 8.8 mg/dL (8.7-10.3); Carbon Dioxide 24.3 mmol/L (21.6-31.8); Chloride 105 mmol/L (96-109); Globulin 2.1 g/dL (1.6-3.3); Glucose 92 mg/dL (70-110); Magnesium 1.7 mg/dL (1.5-2.4); Potassium 3.6 mmol/L (3.5-5.5); Sodium 139 mmol/L (135-145); Total Bilirubin 0.3 mg/dL (0.3-1.2); Total Protein 5.1 g/dL (6.2-8.2)
[2023-08-27] MEDS: amLODIPine 10 MG TAB PO SCH (10:58)
--- NOTE | 2023-08-27 15:11 | P.PN ---
Subjective Progress Note Date: 08/27/23 Hospital course: Patient is a very pleasant 87-year-old female with a past medical history of brain aneurysm status postrepair, atrial fibrillation on anticoagulation with Eliquis, hypertension, hypothyroidism, and GERD. She presented to the emergency department on 08/22/2023 with a chief complaint of weakness. Patient reportedly had a fall out of bed the night prior requiring assistance to get back into bed, she denies having any injuries during this fall but came to the emergency department for evaluation secondary to feeling fatigued and very drowsy. She underwent full evaluation in the emergency department. Vital signs upon arrival show blood pressure 127/67, heart rate 96, respiratory rate 20, temp 97.4 F, and SpO2 of 95% on 2 L. EKG was completed showing sinus tachycardia at 100 bpm with a first-degree AV block with TX interval of 255 ms and a left bundle branch block. Patient has previously known left bundle branch block confirmed upon c omparing EKG completed 08/07/2019. CT head completed showing redemonstrated left frontotemporal craniotomy flap with underlying large area of encephalomalacia in the left middle cranial fossa and previous aneurysm clips at the left MCA bifurcation region along with similar mild to moderate generalized atrophy, secondary mild ventriculomegaly also unchanged,. CT cervical spine showing moderate to advanced spondylitic changes of cervical spine but negative for acute fracture or subluxation. Chest x-ray negative for acute cardiopulmonary process. Labs were completed. CBC showing leukocytosis with WBC count of 18.3, neutrophils at 17.00, lymphocytes 0.55, and monocytes 1.10. BMP showing hyp okalemia with potassium of 3.4 and prerenal azotemia with BUN of 20. Glucose was 101. Lactic acid elevated at 4.1. Magnesium 1.9. Liver profile showing acute transaminitis with total bili of 1.5, AST of 942, ALT of 601, and alkaline phosphatase of 201. Troponin was 0.031. Amylase was slightly high at 169 with a normal lipase 104. Urinalysis was positive for leukocyte esterase but not concerning for infection. Gallbladder ultrasound then completed showing evidence of cholelithiasis. CT abdomen and pelvis with contrast showing addended with gallbladder wall thickening with suggestion of layering gravel/small calculi and possible mural based soft tissue along the right lateral wall of the rectum, small to moderate size hiatal hernia, and left-sided colonic diverticulosis. Patient was admitted under our services for sepsis secondary to choledocholithiasis with acute cholecystitis. Consult was placed to general surgery. Patient was started on IV antibiotics with Rocephin 2 g daily. Blood cultures resulting positive for Klebsiella oxytoca. Urine culture negative. Physical exam: Patient seen and fully evaluated at bedside this morning. She was resting comfortably at this time. Patient reports feeling cold and overall weak. Fami ly member at bedside reports patient previously able to ambulate independently with use of a walker and did not wear briefs. Since hospitalization for acute cholecystitis, patient's overall abilities have significantly declined. Patient now per RN is a two-person assist. Discussed with family who initially wanted to bring patient home with home care but secondary to her overall decline, discussed options for placement in group home facility for rehab. Vital signs reviewed and stable. General: Nontoxic, no distress and appears stated age. Derm: Skin warm and dry, normal coloration for ethnicity. Head: Atraumatic, normocephalic and symmetric. Eyes: EOMs intact, no lid lag, and anicteric sclera Mouth: no lip lesions, mucus membranes moist Cardiovascular: regular rate and rhythm with normal S1S2, systolic murmur, positive posterior tibial pulses bilaterally, and cap refill < 2 seconds. Lungs: Respirations even, regular, and unlabored on room air. Lungs CTA bilaterally, no rhonchi, no rales, no wheezing, and no accessory muscle usage. Abdominal: soft, nontender to palpation, no guarding, no appreciable organomegaly Ext: ROM intact. No gross muscle atrophy, no edema, no contractures Neuro: Speech clear, face symmetrical and CN II-XII grossly intact with no noted focal neuro deficits Psych: Alert and oriented to person, place, time, and situation. Appropriate and pleasant affect. Assessment and Plan of Care: Klebsiella oxytoca bacteremia Choledocholithiasis with acute cholecystitis and cholangitis Acute transaminitis secondary to above Hyperbilirubinemia, secondary to above. Resolved. Sepsis secondary to above -Continue IV antibiotics with Rocephin 2 g daily. -Infectious disease following, reviewed documentation in chart. -General surgery following recommending cholecystectomy, currently family declining surgery and would like to monitor patient. Per general surgery ashly lechuga restarted on Eliquis today. -Symptomatic care -Close monitoring of liver profile with repeat morning CMP. -Repeat blood cultures showing no growth to date. -PT/OT following -Case management following, meeting with family this afternoon to discuss possible placement options. Hypokalemia, resolved History of brain aneurysm status craniotomy with postrepair -Continue oxcarbazepine 300 mg twice daily. Paroxysmal atrial fibrillation After clearance by general surgeon, patient to resume Eliquis 2.5 mg twice daily and patient to continue metoprolol 12.5 mg daily. Hypertension Patient with poorly controlled hypertension with morning blood pressure 181/57, increased amlodipine to 10 mg daily and patient to continue losartan 100 mg daily, and metoprolol 12.5 mg daily. Will trend and monitor for improvement in blood pressures. Hypothyroidism Patient to continue with levothyroxine 50 mcg daily. Data and imaging reviewed: Morning labs reviewed. CBC remains unremarkable showing complete resolution of previous leukocytosis with WBC count of 7.86. BMP revealing resolution of hypokalemia with potassium of 3.6. Magnesium slightly low at 1.7 orders placed for mag oxide 400 mg. Liver profile showing resolution of hyperbilirubinemia with total bili of 0.3 and persistent but improving transaminitis with AST 45, ALT of 118, and alkaline phosphatase of 174. Vital signs reviewed. Blood pressure 181/57, heart rate 63, respiratory rate 18, temp 97.7 F, SpO2 95% on 2 L CODE STATUS: DNR/DNI DVT prophylaxis: Eliquis Anticipated discharge date: Clinical course to determine Anticipated discharge place: Extended care facility, patient baseline ambulatory with walker independently and currently requiring 2 person assist. Patient was seen independently by Nurse Pracitioner. This document was prepared using [email or web address] dictation software. Please allow for errors in ticket counter, while rare they do occur. Sean Torres NP rendered care for this patient independently, reviewed the findings and plan as documented in the note above. I did not physically speak with or examine the patient on this date. Objective - Vital Signs Vital signs: Vital Signs Temp 97.7 F 08/27/23 07:33 Pulse 63 08/27/23 07:33 Resp 18 08/27/23 07:33 BP 181/57 08/27/23 07:33 Pulse Ox 95 08/27/23 07:33 FiO2 Intake & Output 08/26/23 08/27/23 08/27/23 18:59 06:59 18:59 Intake Total 1740 Output Total 650 1400 Balance 1090 -1400 Intake: Oral 1740 Output: Urine 650 1400 Other: Voiding Method External Catheter External Catheter # Bowel Movements 1 - Labs CBC & Chem 7: 08/27/23 06:06 08/27/23 06:06 Labs: Microbiology - Last 24 Hours (Table) 08/25/23 11:02 Blood Culture - Preliminary Blood
[2023-08-27] MEDS: KETOROLAC 15 MG/ML 1 ML VIAL IVP STA (15:51)
[2023-08-27] MEDS: MAGNESIUM OXIDE 400 MG TAB PO STA (15:56)
--- NOTE | 2023-08-27 16:16 | XR ---
EXAMINATION TYPE: XR ankle complete RT DATE OF EXAM: 08/27/2023 COMPARISON: NONE HISTORY: Pain TECHNIQUE: Frontal, lateral and oblique images of the right ankle are obtained. COMPARISON: None. FINDINGS: There is bony osteopenia noted. Bony offset in the region of the lateral malleolus which c ould be chronic in nature although acute fracture is not excluded. Correlate clinically point tendern ess. The joint spaces appear within normal limits. The overlying soft tissue appears unremarkable. IMPRESSION: Bony offset in the region of the lateral malleolus which could be chronic in nature alth ough acute fracture is not excluded. Correlate clinically point tenderness.
--- NOTE | 2023-08-28 11:40 | XR ---
EXAMINATION TYPE: XR foot complete RT DATE OF EXAM: 08/28/2023 CLINICAL HISTORY: pain TECHNIQUE: Frontal, lateral and oblique images of the right foot are obtained. COMPARISON: None. FINDINGS: There is no acute fracture/dislocation evident. Degenerative joint space narrowing involvi ng all metatarsophalangeal joints. The overlying soft tissue appears unremarkable. IMPRESSION: There is no acute fracture or dislocation. ICD 10 NO FRACTURE, INITIAL EVALUATION
--- NOTE | 2023-08-28 11:42 | P.PN ---
Subjective Progress Note Date: 08/28/23 Hospital course: Patient is a very pleasant 87-year-old female with a past medical history of brain aneurysm status postrepair, atrial fibrillation on anticoagulation with Eliquis, hypertension, hypothyroidism, and GERD. She presented to the emergency department on 08/22/2023 with a chief complaint of weakness. Patient reportedly had a fall out of bed the night prior requiring assistance to get back into bed, she denies having any injuries during this fall but came to the emergency department for evaluation secondary to feeling fatigued and very drowsy. She underwent full evaluation in the emergency department. Vital signs upon arrival show blood pressure 127/67, heart rate 96, respiratory rate 20, temp 97.4 F, and SpO2 of 95% on 2 L. EKG was completed showing sinus tachycardia at 100 bpm with a first-degree AV block with GA interval of 255 ms and a left bundle branch block. Patient has previously known left bundle branch block confirmed upon c omparing EKG completed 08/07/2019. CT head completed showing redemonstrated left frontotemporal craniotomy flap with underlying large area of encephalomalacia in the left middle cranial fossa and previous aneurysm clips at the left MCA bifurcation region along with similar mild to moderate generalized atrophy, secondary mild ventriculomegaly also unchanged,. CT cervical spine showing moderate to advanced spondylitic changes of cervical spine but negative for acute fracture or subluxation. Chest x-ray negative for acute cardiopulmonary process. Labs were completed. CBC showing leukocytosis with WBC count of 18.3, neutrophils at 17.00, lymphocytes 0.55, and monocytes 1.10. BMP showing hyp okalemia with potassium of 3.4 and prerenal azotemia with BUN of 20. Glucose was 101. Lactic acid elevated at 4.1. Magnesium 1.9. Liver profile showing acute transaminitis with total bili of 1.5, AST of 942, ALT of 601, and alkaline phosphatase of 201. Troponin was 0.031. Amylase was slightly high at 169 with a normal lipase 104. Urinalysis was positive for leukocyte esterase but not concerning for infection. Gallbladder ultrasound then completed showing evidence of cholelithiasis. CT abdomen and pelvis with contrast showing addended with gallbladder wall thickening with suggestion of layering gravel/small calculi and possible mural based soft tissue along the right lateral wall of the rectum, small to moderate size hiatal hernia, and left-sided colonic diverticulosis. Patient was admitted under our services for sepsis secondary to choledocholithiasis with acute cholecystitis. Consult was placed to general surgery. Patient was started on IV antibiotics with Rocephin 2 g daily. Blood cultures resulting positive for Klebsiella oxytoca. Urine culture negative. Patient underwent extended hospital stay and throughout hospital stay she continued with progressive weakness. Prior to admission patient was ambulating with walker independently and is now requiring a two-person assist. Patient did report pain in her right foot and did previously have a fall prior to coming to the hospital. X-ray right foot completed showing bony offset in the region of the lateral malleolus which could be chronic in nature, however acute fracture cannot be excluded at this time. Physical exam: Patient seen and fully evaluated at bedside this morning. She was resting comfortably. She reports feeling well today and appears to be having a good day. Pt states that the pain in her right ankle is now more in the top of her right foot. No obvious deformities noted. Patient is nontender at right lateral ankle where there are concerns of possible fracture. Orthopedic surgery was consulted, discussed with nursing staff and family at bedside patient to be nonweightbearing pending clearance from orthopedic surgery. Vital signs reviewed and stable. General: Nontoxic, no distress and appears stated age. Derm: Skin warm and dry, normal coloration for ethnicity. Head: Atraumatic, normocephalic and symmetric. Eyes: EOMs intact, no lid lag, and anicteric sclera Mouth: no lip lesions, mucus membranes moist Cardiovascular: regular rate and rhythm with normal S1S2, systolic murmur, positive posterior tibial pulses bilaterally, and cap refill < 2 seconds. Lungs: Respirations even, regular, and unlabored on room air. Lungs CTA michael aterally, no rhonchi, no rales, no wheezing, and no accessory muscle usage. Abdominal: soft, nontender to palpation, no guarding, no appreciable organomegaly Ext: ROM intact. No gross muscle atrophy, no edema, no contractures Neuro: Speech clear, face symmetrical and CN II-XII grossly intact with no noted focal neuro deficits Psych: Alert and oriented to person, place, time, and situation. Appropriate and pleasant affect. Assessment and Plan of Care: Klebsiella oxytoca bacteremia Choledocholithiasis with acute cholecystitis and cholangitis Acute transaminitis secondary to above Hyperbilirubinemia, secondary to above. Resolved. Sepsis secondary to above -Continue IV antibiotics with Rocephin 2 g daily. -Infectious disease following, discussed plan of care with physician recommending continuation of IV antibiotics until ready for discharge. -General surgery following recommending cholecystectomy, currently family declining surgery and would like to monitor patient. Per general surgery patient restarted on Eliquis today. -Symptomatic care -Close monitoring of liver profile with repeat morning CMP. -Repeat blood cultures showing no growth to date. -PT/OT following -Case management following, started insurance authorization for placement in ECF. Right ankle pain and inability to ambulate -X-ray right ankle completed showing bony offset in the region of the lateral malleolus which could be chronic in nature, however acute fracture cannot be excluded at this time. -Consult placed to orthopedic surgery team for evaluation. Hypokalemia, resolved History of brain aneurysm status craniotomy with postrepair -Continue oxcarbazepine 300 mg twice daily. Paroxysmal atrial fibrillation After clearance by general surgeon, patient to resume Eliquis 2.5 mg twice daily and patient to continue metoprolol 12.5 mg daily. Hypertension Continue amlodipine to 10 mg daily, losartan 100 mg daily, and metoprolol 12.5 mg daily. Hypothyroidism Patient to continue with levothyroxine 50 mcg daily. Data and imaging reviewed: X-ray right foot completed showing bony offset in the region of the lateral malleolus which could be chronic in nature, however acute fracture cannot be excluded at this time. Vital signs reviewed. Blood pressure 150/72, heart rate 61, respiratory rate 20, temp 98.0 F, SpO2 of 96% on 2 L. CODE STATUS: DNR/DNI DVT prophylaxis: Eliquis Anticipated discharge date: Clinical course to determine Anticipated discharge place: Extended care facility, patient baseline ambulatory with walker independently and currently requiring 2 person assist. Patient was seen independently by Nurse Pracitioner. This document was prepared using [employer] dictation software. Please allow for errors in composition floor setter, while rare they do occur. Sean Torres NP rendered care for this patient independently, reviewed the find ings and plan as documented in the note above. I did not physically speak with or examine the patient on this date. Objective - Vital Signs Vital signs: Vital Signs Temp 98.0 F 08/28/23 07:55 Pulse 61 08/28/23 07:55 Resp 20 08/28/23 07:55 BP 150/72 08/28/23 07:55 Pulse Ox 96 08/28/23 07:55 FiO2 Intake & Output 08/27/23 08/28/23 08/28/23 18:59 06:59 18:59 Intake Total 118 Output Total 780 551 Balance -732 -382 Intake: Oral 118 Output: Urine 780 550 Stool 1 Other: Voiding Method External Catheter External Catheter # Voids 0 # Bowel Movements 1 - Labs CBC & Chem 7: 08/27/23 06:06 08/27/23 06:06 Labs: Abnormal Lab Results - Last 24 Hours (Table) 08/27/23 08/27/23 Range/Units 06:06 06:06 RDW 14.6 H (11.5-14.5) % BUN 5.5 L (9.0-27.0) mg/dL BUN/Creatinine Ratio 9.17 L (12.00-20.00) Ratio AST 45 H (13-35) U/L ALT 118 H (8-44) U/L Alkaline Phosphatase 174 H (41-126) U/L Total Protein 5.1 L (6.2-8.2) g/dL Albumin 3.0 L (3.8-4.9) g/dL Albumin/Globulin Ratio 1.43 L (1.60-3.17) Ratio Microbiology - Last 24 Hours (Table) 08/25/23 11:02 Blood Culture - Preliminary Blood
[2023-08-28] MEDS: KETOROLAC 15 MG/ML 1 ML VIAL IVP STA (12:10)
--- NOTE | 2023-08-28 13:01 | P.CNOR ---
History of Present Illness - HPI Consult date: 08/28/23 History of present illness: This is an 87 year-old female who is admitted for weakness and UTI. Orthopedics is consulted for right ankle pain. Patient is seen and evaluated at bedside today. A family friend is present at bedside today. Patient states that she has noticed right ankle pain for the last couple of days. Per the patient's friend, the patient was found down in her house on 08/22/2023. Patient states that she has pain in the side of the right ankle. Patient states that she normally ambulates around her house with a walker. Patient denies any fever/chills, numbness or tingling. Review of Systems See HPI. Past Medical History Past Medical History: Atrial Fibrillation, GERD/Reflux, Hyperlipidemia, Hypertension, Thyroid Disorder Additional Past Medical History / Comment(s): aneurysm History of Any Multi-Drug Resistant Organisms: None Reported Past Surgical History: Back Surgery, Bladder Surgery, Hysterectomy, Orthopedic Surgery, Tonsillectomy Additional Past Surgical History / Comment(s): brain surgery Past Anesthesia/Blood Transfusion Reactions: No Reported Reaction Past Psychological History: Anxiety, Depression, No Psychological Hx Reported Additional Psychological History / Comment(s): Short Term Memory Loss Smoking Status: Never smoker Past Alcohol Use History: None Reported Past Drug Use History: None Reported - Past Family History Brother(s) Additional Family Medical History / Comment(s): pt. had a twin brother who was born with a bad heart valve Medications and Allergies Home Medications Medication Instructions Recorded Confirmed Type oxyBUTYnin chloride [Ditropan XL] 5 mg PO HS 12/14/13 08/22/23 History Levothyroxine Sodium [Synthroid] 50 mcg PO AC-[id number] 09/14/17 08/22/23 History OXcarbazepine [Trileptal] 300 mg PO BID 09/14/17 08/22/23 History Ubidecarenone [Co Q-10] 100 mg PO DAILY@1200 09/14/17 08/22/23 History amLODIPine [Norvasc] 5 mg PO DAILY 09/14/17 08/22/23 History Cholecalciferol [Vitamin D3 (25 25 mcg PO DAILY@1200 07/27/19 08/22/23 History Mcg = 1000 Iu)] Famotidine [Pepcid] 20 mg PO BID 07/27/19 08/22/23 History Omeprazole 40 mg PO HS 07/27/19 08/22/23 History Vit C/E/Zn/Coppr/Lutein/Zeaxan 1 cap PO HS 07/27/19 08/22/23 History [Preservision Areds 2 Softgel] Krill Oil 500 mg PO DAILY@1200 08/10/20 08/22/23 History Metoprolol Tartrate [Lopressor] 12.5 mg PO DAILY 08/10/20 08/22/23 History Apixaban [Eliquis] 2.5 mg PO BID 08/22/23 08/22/23 History Ascorbic Acid [Vitamin C] 500 mg PO DAILY@1200 08/22/23 08/22/23 History L.acidoph,Paracasei, B.lactis 1 cap PO DAILY 08/22/23 08/22/23 History [Probiotic] Losartan Potassium 100 mg PO DAILY@1200 08/22/23 08/22/23 History Mv-Min/FA/Vit K/Lutein/Zeaxant 1 cap PO DAILY@1200 08/22/23 08/22/23 History [Preservision Areds 2 Plus Mv] Triamcinolone 0.1% Cream [Kenalog 1 applic TOPICAL BID PRN 08/22/23 08/22/23 History 0.1% Cream] Allergies Allergy/AdvReac Type Severity Reaction Status Date / Time No Known Allergies Allergy Verified 08/22/23 14:02 Physical Examination On exam patient is resting comfortably in bed in no acute distress. Patient is alert and oriented 3. There is tenderness to palpation over the lateral aspect of the right ankle over the ATFL. There is no tenderness to palpation over the medial or lateral malleoli. Achilles tendon is intact and nontender to palpation. Patient has pain with attempted motion of the right ankle. Skin is intact. There is no swelling. Calf is soft and nontender to palpation. Sensation intact. The right lower extremity is warm well-perfused. Neurovascular status and circulatory status are intact. Results X-ray of the right ankle and foot are reviewed showing possible fracture of the distal fibula which could be chronic in nature. Arthritic changes noted. - Labs Labs: Microbiology - Last 24 Hours (Table) 08/25/23 11:02 Blood Culture - Preliminary Blood H & H 08/22/23 08/23/23 08/24/23 Range/Units 09:42 06:31 05:53 Hgb 13.6 12.1 13.0 (11.4-16.0) gm/dL Hct 40.1 36.3 L 38.5 (34.0-46.0) % 08/25/23 08/26/23 08/27/23 Range/Units 11:02 05:49 06:06 Hgb 13.8 13.6 13.0 (11.4-16.0) gm/dL Hct 40.9 39.8 38.9 (34.0-46.0) % Coagulation 08/22/23 Range/Units 09:42 INR 1.0 (<1.2) Result Diagrams: 08/27/23 06:06 08/27/23 06:06 Assessment and Plan (1) Right ankle sprain Current Visit: Yes Status: Acute Code(s): S93.401A - SPRAIN OF UNSPECIFIED LIGAMENT OF RIGHT ANKLE, INIT ENCNTR SNOMED Code(s): 89428581040185650 Plan: X-rays of the right ankle and foot are reviewed showing possible distal fibula fracture which could be chronic in nature. Patient has no tenderness to palpation over the distal fibula. Recommend weightbearing as tolerated in a boot. No surgical intervention planned. We will plan to repeat x-rays as an ou tpatient in 7-10 days.
[2023-08-28 14:05] VITALS: BMI 25.9
--- NOTE | 2023-08-28 15:30 | P.PN ---
Subjective Progress Note Date: 08/27/23 Principal diagnosis: Reason for follow-up with gram-negative bacteremia and cholangitis Patient is a 87-year-old female with a past medical history significant for hypertension hyperlipidemia reflux atrial fibrillation and aneurysm patient was brought into the hospital for not feeling well and the patient fell out of the bed patient noticed to have elevated white count CT abdominal pelvis with edematous gallbladder and the patient did have Klebsiella bacteremia. On today's evaluation that is 08/27/2023, the patient is afebrile, patient is on 2 L nasal cannula oxygen, the patient denies chest pain shortness of breath or cough, patient denies nausea no vomiting no abdominal pain and no diarrhea has been reported Patient white count 7.86, creatinine 0.6 Objective - Vital Signs Vital signs: Vital Signs Temp 97.7 F 08/27/23 07:33 Pulse 63 08/27/23 07:33 Resp 18 08/27/23 07:33 BP 181/57 08/27/23 07:33 Pulse Ox 95 08/27/23 07:33 FiO2 Intake & Output 08/26/23 08/27/23 08/27/23 18:59 06:59 18:59 Intake Total 1740 Output Total 650 1400 Balance 1090 -1400 Intake: Oral 1740 Output: Urine 650 1400 Other: Voiding Method External Catheter External Catheter # Bowel Movements 1 - Exam GENERAL DESCRIPTION: An elderly female lying in bed in no distress RESPIRATORY SYSTEM: Unlabored breathing , decreased breath sounds at bases HEART: S1 S2 regular rate and rhythm , ABDOMEN: Soft , mild tenderness EXTREMITIES: No edema feet - Labs CBC & Chem 7: 08/27/23 06:06 08/27/23 06:06 Labs: Abnormal Lab Results - Last 24 Hours (Table) 08/27/23 08/27/23 Range/Units 06:06 06:06 RDW 14.6 H (11.5-14.5) % BUN 5.5 L (9.0-27.0) mg/dL BUN/Creatinine Ratio 9.17 L (12.00-20.00) Ratio AST 45 H (13-35) U/L ALT 118 H (8-44) U/L Alkaline Phosphatase 174 H (41-126) U/L Total Protein 5.1 L (6.2-8.2) g/dL Albumin 3.0 L (3.8-4.9) g/dL Albumin/Globulin Ratio 1.43 L (1.60-3.17) Ratio Microbiology - Last 24 Hours (Table) 08/25/23 11:02 Blood Culture - Preliminary Blood Assessment and Plan (1) Bacteremia due to Klebsiella pneumoniae Current Visit: Yes Status: Acute Code(s): R78.81 - BACTEREMIA; B96.1 - KLEBSIELLA PNEUMONIAE THE CAUSE OF DISEASES CLASSD [facility] SNOMED Code(s): 385814465529 (2) Cholangitis Current Visit: Yes Status: Acute Code(s): K83.09 - OTHER CHOLANGITIS SNOMED Code(s): 60091142 (3) Choledocholithiasis with acute cholecystitis Current Visit: Yes Status: Acute Code(s): K80.42 - CALCULUS OF BILE DUCT W ACUTE CHOLECYSTITIS W/O OBSTRUCTION SNOMED Code(s): 76032258 Plan: 1-patient with Klebsiella bacteremia in this patient was in the hospital generalized weakness fatigue some week abdominal pain patient did have a tenderness to right upper quadrant area did have elevated liver enzymes and abnormal CT suspicious for cholecystitis and likely component of cholangitis with elevated liver enzymes 2-patient family is leaning towards no surgical treatment at this point because of her age, pros and cons has been discussed with the son at the bedside on 08/25/2023 3patient white count normalized liver enzymes are trending down and the patient is slowly clinical improving 4-patient will continue with Rocephin while inpatient and monitor clinical course closely Dictation was produced using [employer] dictation software. please excuse any grammatical, word or spelling errors. Time with Patient: Less than 30
--- NOTE | 2023-08-28 15:31 | P.PN ---
Subjective Progress Note Date: 08/28/23 Principal diagnosis: Reason for follow-up with gram-negative bacteremia and cholangitis Patient is a 87-year-old female with a past medical history significant for hypertension hyperlipidemia reflux atrial fibrillation and aneurysm patient was brought into the hospital for not feeling well and the patient fell out of the bed patient noticed to have elevated white count CT abdominal pelvis with edematous gallbladder and the patient did have Klebsiella bacteremia. On today's evaluation that is 08/28/2023, the patient remains to be afebrile, patient is currently breathing comfortably on 2 L nasal cannula oxygen, the patient denies chest pain and no significant cough, patient denies abdominal pain, no nausea no vomiting or any diarrhea has been reported. No new labs has been obtained today blood culture to be negative Objective - Vital Signs Vital signs: Vital Signs Temp 98.1 F 08/28/23 14:20 Pulse 62 08/28/23 14:20 Resp 16 08/28/23 14:20 BP 151/69 08/28/23 14:20 Pulse Ox 94 L 08/28/23 14:20 FiO2 Intake & Output 08/27/23 08/28/23 08/28/23 18:59 06:59 18:59 Intake Total 118 Output Total 780 551 501 Balance -662 -551 -501 Weight 54.431 kg Intake: Oral 118 Output: Urine 780 550 500 Stool 1 1 Other: Voiding Method External Catheter External Catheter External Catheter # Voids 0 0 # Bowel Movements 1 1 - Exam GENERAL DESCRIPTION: An elderly female lying in bed in no distress RESPIRATORY SYSTEM: Unlabored breathing , decreased breath sounds at bases HEART: S1 S2 regular rate and rhythm , ABDOMEN: Soft , mild tenderness EXTREMITIES: No edema feet - Labs CBC & Chem 7: 08/27/23 06:06 08/27/23 06:06 Labs: Microbiology - Last 24 Hours (Table) 08/27/23 06:06 Blood Culture - Preliminary Blood 08/25/23 11:02 Blood Culture - Preliminary Blood Assessment and Plan (1) Bacteremia due to Klebsiella pneumoniae Current Visit: Yes Status: Acute Code(s): R78.81 - BACTEREMIA; B96.1 - KLEBSIELLA PNEUMONIAE THE CAUSE OF DISEASES CLASSD [facility] SNOMED Code(s): 841478870322 (2) Cholangitis Current Visit: Yes Status: Acute Code(s): K83.09 - OTHER CHOLANGITIS SNOMED Code(s): 40553814 (3) Choledocholithiasis with acute cholecystitis Current Visit: Yes Status: Acute Code(s): K80.42 - CALCULUS OF BILE DUCT W ACUTE CHOLECYSTITIS W/O OBSTRUCTION SNOMED Code(s): 73313579 Plan: 1-patient with Klebsiella bacteremia in this patient was in the hospital generalized weakness fatigue some week abdominal pain patient did have a tenderness to right upper quadrant area did have elevated liver enzymes and abnormal CT suspicious for cholecystitis and likely component of cholangitis with elevated liver enzymes 2-patient family is leaning towards no surgical treatment at this point because of her age, pros and cons has been discussed with the son at the bedside on 08/25/2023 3patient white count normalized liver enzymes are trending down and the patient is slowly clinical improving, patient to continue with Rocephin while inpatient and will finish therapy with a 10-day course of oral Cipro on discharge Dictation was produced using [employer] dictation software. please excuse any grammatical, word or spelling errors. Time with Patient: Less than 30
[2023-08-29 06:27] VITALS: PULSE 60
[2023-08-29 08:29] VITALS: BP 175/65; RESP 16; TEMP 97.9
--- NOTE | 2023-08-29 11:19 | P.DS ---
Providers Date of admission: 08/22/23 17:12 Expected date of discharge: 08/29/23 Attending physician: Frederick Gutiérrez MD Consults: 08/23/23 16:20 Consult Physician Stat Consulting Provider: Anuel Roldan Consult Reason/Comments: bacteremia Do you want consulting provider notified?: Yes 08/28/23 08:42 Consult Physician Routine Consulting Provider: Ruperto Eli Consult Reason/Comments: right ankle pain, inability to bear weight Do you want consulting provider notified?: Yes Primary care physician: Lewis Wagner [facility] Course: Discharge Diagnosis: Klebsiella oxytoca bacteremia. Received extended course of IV antibiotics and infectious disease evaluated. Per recommendations of infectious disease physician patient being discharged on an extended course of antibiotics and is being switched to Ceftin 500 mg twice daily for an additional 10 days and to f ollow-up in their office in 2 weeks. Repeat blood cultures were negative. Choledocholithiasis with acute cholecystitis and cholangitis Acute transaminitis secondary to above. Initially liver enzymes showing total bili of 1.5, AST of 942, ALT of 601, and alkaline phosphatase of 201. Patient. Was treated conservatively for her choledocholithiasis with acute cholecystitis and cholangitis with IV antibiotics. Liver function did improve and hyperbilirubinemia resolved. Total bili 0.3, AST 45, ALT 118, and alkaline phosphatase 174. Patient to have CMP repeated in 3 days with outpatient providers for follow-up. Hyperbilirubinemia, secondary to above. Resolved. Sepsis secondary to above Right ankle pain and inability to ambulate. X-ray right ankle completed showing bony offset in the region of the lateral malleolus which could be chronic in nature, however acute fracture cannot be excluded at this time. Patient was evaluated by orthopedic surgery. Recommending weightbearing as tolerated with walking boot and follow-up outpatient in their office in 10 days. Hypokalemia, resolved History of brain aneurysm status craniotomy with postrepair. Continue oxcarbazepine 300 mg twice daily. Paroxysmal atrial fibrillation. Continue Eliquis 2.5 mg twice daily and patient to continue metoprolol 12.5 mg daily. Hypertension. Continue amlodipine to 10 mg daily, losartan 100 mg daily, and metoprolol 12.5 mg daily. Hypothyroidism. Patient to continue with levothyroxine 50 mcg daily. Hospital Course: Patient is a very pleasant 87-year-old female with a past medical history of brain aneurysm status postrepair, atrial fibrillation on anticoagulation with Eliquis, hypertension, hypothyroidism, and GERD. She presented to the emergency department on 08/22/2023 with a chief complaint of weakness. Patient reportedly had a fall out of bed the night prior requiring assistance to get back into bed, she denies having any injuries during this fall but came to the emergency department for evaluation secondary to feeling fatigued and very drowsy. She underwent full evaluation in the emergency department. Vital signs upon arrival show blood pressure 127/67, heart rate 96, respiratory rate 20, temp 97.4 F, and SpO2 of 95% on 2 L. EKG was completed showing sinus tachycardia at 100 bpm with a first-degree AV block with WA interval of 255 ms and a left bundle branch block. Patient has previously known left bundle branch block confirmed upon comparing EKG completed 08/07/2019. CT head completed showing redemonstrated left frontotemporal craniotomy flap with underlying large area of encephalomalacia in the left middle cranial fossa and previous aneurysm clips at the left MCA bifurcation region along with similar mild to moderate generalized atrophy, secondary mild ventriculomegaly also unchanged,. CT cervical spine showing moderate to advanced spondylitic changes of cervical spine but negative for acute fracture or subluxation. Chest x-ray negative for acute cardiopulmonary process. Labs were completed. CBC showing leukocytosis with WBC count of 18.3, neutrophils at 17.00, lymphocytes 0.55, and monocytes 1.10. BMP showing hypokalemia with potassium of 3.4 and prerenal azotemia with BUN of 20. Glucose was 101. Lactic acid elevated at 4.1. Magnesium 1.9. Liver profile showing acute transaminitis with total bili of 1.5, AST of 942, ALT of 601, and alkaline phosphatase of 201. Troponin was 0.031. Amylase was slightly high at 169 with a normal lipase 104. Urinalysis was positive for leukocyte esterase but not concerning for infection. Gallbladder ultrasound then completed showing evidence of cholelithiasis. CT abdomen and pelvis with contrast showing addended with gallbladder wall thickening with suggestion of layering gravel/small calculi and possible mural based soft tissue along the right lateral wall of the rectum, small to moderate size hiatal hernia, and left-sided colonic diverticulosis. Patient was admitted under our services for sepsis secondary to choledocholithiasis with acute cholecystitis. Consult was placed to general surgery. Patient was started on IV antibiotics with Rocephin 2 g daily. Blood cultures resulting positive for Klebsiella oxytoca. Urine culture negative. Patient underwent extended hospital stay and throughout hospital stay she continued with progressive weakness. Prior to admission patient was ambulating with walker independently and is now requiring a two-person assist. Patient did report pain in her right foot and did previously have a fall prior to coming to the hospital. X-ray right foot completed showing bony offset in the region of the lateral malleolus which could be chronic in nature, however acute fracture cannot be excluded at this time. She was evaluated by orthopedic surgery recommending weightbearing as tolerated with walking boot. Medically, patient is stable at this time. Per recommendations of infectious disease patient to be discharged home on Ceftin 500 mg twice daily for an additional 10 days. Order placed for repeat CMP to follow-up with transaminitis and continue to monitor for resolution, results to be sent to PCP, general surgeon, and infectious disease physician for follow-up and management. Patient is being discharged to [facility] for rehab. Family at bedside updated. Patient updated on plan of care and in agreement with no further questions, needs, or concerns. Physical exam: Vital signs reviewed and stable. General: Nontoxic, no distress and appears stated age. Derm: Skin warm and dry, normal coloration for ethnicity. Head: Atraumatic, normocephalic and symmetric. Eyes: EOMs intact, no lid lag, and anicteric sclera Mouth: no lip lesions, mucus membranes moist Cardiovascular: regular rate and rhythm with normal S1S2, systolic murmur, positive posterior tibial pulses bilaterally, and cap refill < 2 seconds. Lungs: Respirations even, regular, and unlabored on room air. Lungs CTA bilaterally, no rhonchi, no rales, no wheezing, and no accessory muscle usage. Abdominal: soft, nontender to palpation, no guarding, no appreciable organomegaly Ext: ROM intact. No gross muscle atrophy, no edema, no contractures Neuro: Speech clear, face symmetrical and CN II-XII grossly intact with no noted focal neuro deficits Psych: Alert and oriented to person, place, time, and situation. Appropriate and pleasant affect. A total of 39 minutes of time were spent preparing this complex discharge summary. Pt was discharged on 08/29/2023 at 10:47 AM. Patient was seen independently by Nurse Practitioner. This document was prepared using [employer] dictation software. Please allow for errors in emergency dispatch operator while rare they do occur. Sean Torres NP rendered care for this patient independently, reviewed the findings and plan as documented in the note above. I did not physically speak with or examine the patient on this date. Patient Condition at Discharge: Stable Plan - Discharge Summary New Discharge Prescriptions: New cefUROXime axetiL [Ceftin] 500 mg PO BID 10 Days #20 tab amLODIPine [Norvasc] 10 mg PO DAILY tab Continue oxyBUTYnin chloride [Ditropan XL] 5 mg PO HS OXcarbazepine [Trileptal] 300 mg PO BID Levothyroxine Sodium [Synthroid] 50 mcg PO AC-BRKFST Ubidecarenone [Co Q-10] 100 mg PO DAILY@1200 Omeprazole 40 mg PO HS Famotidine [Pepcid] 20 mg PO BID Vit C/E/Zn/Coppr/Lutein/Zeaxan [Preservision Areds 2 Softgel] 1 cap PO HS Cholecalciferol [Vitamin D3 (25 Mcg = 1000 Iu)] 25 mcg PO DAILY@1200 Krill Oil 500 mg PO DAILY@1200 Metoprolol Tartrate [Lopressor] 12.5 mg PO DAILY Ascorbic Acid [Vitamin C] 500 mg PO DAILY@1200 L.acidoph,Paracasei, B.lactis [Probiotic] 1 cap PO DAILY Mv-Min/FA/Vit K/Lutein/Zeaxant [Preservision Areds 2 Plus Mv] 1 cap PO DAILY@1200 Triamcinolone 0.1% Cream [Kenalog 0.1% Cream] 1 applic TOPICAL BID PRN PRN Reason: Rash Apixaban [Eliquis] 2.5 mg PO BID Losartan Potassium 100 mg PO DAILY@1200 Discontinued amLODIPine [Norvasc] 5 mg PO DAILY Discharge Medication List oxyBUTYnin chloride [Ditropan XL] 5 mg PO HS 12/14/13 [History] Levothyroxine Sodium [Synthroid] 50 mcg PO AC-BRKFST 09/14/17 [History] OXcarbazepine [Trileptal] 300 mg PO BID 09/14/17 [History] Ubidecarenone [Co Q-10] 100 mg PO DAILY@1200 09/14/17 [History] Cholecalciferol [Vitamin D3 (25 Mcg = 1000 Iu)] 25 mcg PO DAILY@1200 07/27/19 [History] Famotidine [Pepcid] 20 mg PO BID 07/27/19 [History] Omeprazole 40 mg PO HS 07/27/19 [History] Vit C/E/Zn/Coppr/Lutein/Zeaxan [Preservision Areds 2 Softgel] 1 cap PO HS 07/27/19 [History] Krill Oil 500 mg PO DAILY@1200 08/10/20 [History] Metoprolol Tartrate [Lopressor] 12.5 mg PO DAILY 08/10/20 [History] Apixaban [Eliquis] 2.5 mg PO BID 08/22/23 [History] Ascorbic Acid [Vitamin C] 500 mg PO DAILY@1200 08/22/23 [History] L.acidoph,Paracasei, B.lactis [Probiotic] 1 cap PO DAILY 08/22/23 [History] Losartan Potassium 100 mg PO DAILY@1200 08/22/23 [History] Mv-Min/FA/Vit K/Lutein/Zeaxant [Preservision Areds 2 Plus Mv] 1 cap PO DAILY@1200 08/22/23 [History] Triamcinolone 0.1% Cream [Kenalog 0.1% Cream] 1 applic TOPICAL BID PRN 08/22/23 [History] amLODIPine [Norvasc] 10 mg PO DAILY tab 08/29/23 [Rx] cefUROXime axetiL [Ceftin] 500 mg PO BID 10 Days #20 tab 08/29/23 [Rx] Follow up Appointment(s)/Referral(s): Sanjeev Marie MD [Medical Doctor] - 1 Week Lewis Kinney MD [Primary Care Provider] - 1-2 days Ruperto Eli DO [Doctor of Osteopathic Medicine] - 10 Days Anuel Roldan MD [STAFF PHYSICIAN] - 2 Weeks Ambulatory/Diagnostic Orders: Comprehensive Metabolic Panel [LAB.AMB] Time Frame: 3 Days, Location: None Selected Activity/Diet/Wound Care/Special Instructions: Activity: Weightbearing as tolerated in a boot. Please follow up with [facility] and call with any questions or concerns, Diet: Heart healthy and carb consistent diet. Avoid salts, or foods with hidden salts such as canned or boxed foods and frozen dinners. Extra salt makes your heart work harder and traps the fluid in your body for longer. Special Instructions: Take all of your medications as directed and remember to keep all of your doctor's appointments and follow-up as needed. Thank you for allowing us to participate in your care, it was truly a pleasure having you for our patient!!! Discharge Disposition: TRANSFER TO SNF/ECF
--- NOTE | 2023-08-29 15:06 | P.PN ---
Subjective Progress Note Date: 08/29/23 Principal diagnosis: Reason for follow-up with gram-negative bacteremia and cholangitis Patient is a 87-year-old female with a past medical history significant for hypertension hyperlipidemia reflux atrial fibrillation and aneurysm patient was brought into the hospital for not feeling well and the patient fell out of the bed patient noticed to have elevated white count CT abdominal pelvis with edematous gallbladder and the patient did have Klebsiella bacteremia. On today's evaluation that is 08/29/2023, the patient is afebrile, patient is on 2 L nasal cannula oxygen, the patient denies chest pain shortness of breath or cough, patient denies nausea no vomiting no abdominal pain and no diarrhea, feeling better. No new labs has been obtained today, repeat blood culture 08/25/2023 as well as 08/27/2023 has been negative Objective - Vital Signs Vital signs: Vital Signs Temp 97.9 F 08/29/23 08:00 Pulse 60 08/29/23 08:00 Resp 16 08/29/23 08:00 BP 175/65 08/29/23 08:00 Pulse Ox 96 08/29/23 08:00 FiO2 Intake & Output 08/28/23 08/29/23 08/29/23 18:59 06:59 18:59 Intake Total 118 Output Total 1101 351 1 Balance -1101 -351 117 Weight 54.431 kg Intake: Oral 118 Output: Urine 1100 350 Stool 1 1 1 Other: Voiding Method External Catheter External Catheter External Catheter # Voids 0 # Bowel Movements 1 - Exam GENERAL DESCRIPTION: An elderly female lying in bed in no distress RESPIRATORY SYSTEM: Unlabored breathing , decreased breath sounds at bases HEART: S1 S2 regular rate and rhythm , ABDOMEN: Soft , mild tenderness EXTREMITIES: No edema feet - Labs CBC & Chem 7: 08/27/23 06:06 08/27/23 06:06 Labs: Microbiology - Last 24 Hours (Table) 08/27/23 06:06 Blood Culture - Preliminary Blood 08/25/23 11:02 Blood Culture - Preliminary Blood Assessment and Plan (1) Bacteremia due to Klebsiella pneumoniae Status: Acute Code(s): R78.81 - BACTEREMIA; B96.1 - KLEBSIELLA PNEUMONIAE THE CAUSE OF DISEASES CLASSD [facility] SNOMED Code(s): 590231745270 (2) Cholangitis Status: Acute Code(s): K83.09 - OTHER CHOLANGITIS SNOMED Code(s): 05582477 (3) Choledocholithiasis with acute cholecystitis Status: Acute Code(s): K80.42 - CALCULUS OF BILE DUCT W ACUTE CHOLECYSTITIS W/O OBSTRUCTION SNOMED Code(s): 76185576 Plan: 1-patient with Klebsiella bacteremia in this patient was in the hospital generalized weakness fatigue some week abdominal pain patient did have a tenderness to right upper quadrant area did have elevated liver enzymes and abnormal CT suspicious for cholecystitis and likely component of cholangitis with elevated liver enzymes 2-patient family is leaning towards no surgical treatment at this point because of her age, pros and cons has been discussed with the son at the bedside on 08/25/2023 3patient white count normalized and repeat blood culture has been negative, with her overall improvement on Rocephin and finishing therapy with oral Ceftin x 10 days discussed with the admitting team SECURITY COORDINATOR. Patient care also discussed with daughter at the bedside patient to consider risk for recurrent cholangitis and cholecystitis because of the gallstones Dictation was produced using [employer] dictation software. please excuse any grammatical, word or spelling errors. Time with Patient: Less than 30
== END 2023-08-29 14:00 | DRG 872 ==
LOC: EC 09:15 → 6NMEDSUR 14:34 → OBSVTOIN 17:12 → 6NMEDSUR 17:16
PROVIDERS: ADMIT Student in an Organized Health Care Education/Training Program; ATTEND Student in an Organized Health Care Education/Training Program
DX: A41.50 Gram-negative sepsis, unspecified (principal); F03.94 Unspecified dementia, unspecified severity, with anxiety; F03.93 Unspecified dementia, unspecified severity, with mood disturbance; N39.0 Urinary tract infection, site not specified; K80.42 Calculus of bile duct with acute cholecystitis without obstruction; B96.1 Klebsiella pneumoniae [K. pneumoniae] as the cause of diseases classified elsewhere; E03.9 Hypothyroidism, unspecified; E87.6 Hypokalemia; F32.A Depression, unspecified; G93.89 Other specified disorders of brain; W06.XXXA Fall from bed, initial encounter; I10 Essential (primary) hypertension; R56.9 Unspecified convulsions; M19.071 Primary osteoarthritis, right ankle and foot; I44.0 Atrioventricular block, first degree; R74.01 Elevation of levels of liver transaminase levels; S82.831A Other fracture of upper and lower end of right fibula, initial encounter for closed fracture; I44.7 Left bundle-branch block, unspecified; Z66 Do not resuscitate; I48.0 Paroxysmal atrial fibrillation; E80.6 Other disorders of bilirubin metabolism; Z79.890 Hormone replacement therapy; E78.5 Hyperlipidemia, unspecified; Z79.01 Long term (current) use of anticoagulants; Z79.899 Other long term (current) drug therapy; Z86.79 Personal history of other diseases of the circulatory system; Z87.440 Personal history of urinary (tract) infections; Z82.49 Family history of ischemic heart disease and other diseases of the circulatory system; S93.401A Sprain of unspecified ligament of right ankle, initial encounter; K21.9 Gastro-esophageal reflux disease without esophagitis
CPT/HCPCS: 36415; 70450; 71046; 72125; 74177; 76705; 80053; 80074; 81001; 82150; 83605; 83690; 83735; 84484; 85025; 85027; 85610; 85730; 87040; 87077; 87086; 87186; 93005; 94760; 96361; 96365; 96366; 99285